=== PATIENT | female | born 1970 | race Caucasian/White ===

== ENCOUNTER → 2017-11-20 07:01 | Outpatient (CLI) | payer BC, SELFPAY ==
--- NOTE | 2017-11-20 07:08 | BI_ITS ---
MAMMOGRAPHY - BILATERAL SCREENING REASON FOR EXAM: Female, 47 years old. Routine annual screening examination. PERTINENT HISTORY: Aunt with breast cancer. TECHNIQUE: Digital bilateral breast bassam (3D mammographic acquisition) in the CC and MLO projections. 2-D mediolateral oblique (MLO) and craniocaudad (CC) views of both breasts were obtained. CAD: Full Field Digital Mammography with Computer Added Detection was performed. COMPARISON: Comparison is made with prior study dated October 18, 2016 and September 28, 2015. FINDINGS: Breast Composition: There are scattered areas of fibroglandular density. There are no dominant masses or suspicious calcifications. No other significant abnormalities are identified. There has been no significant change since the prior study. BI/SCREENING MAMM (CAD), BILAT IMPRESSION: Stable bilateral screening mammogram. Yearly follow-up mammogram recommended. (A) ASSESSMENT CATEGORY: BIRADS Category 1: Negative. A letter regarding these results will be sent to the patient by the facility within 30 days. Approximately 10% of breast cancers are not detected by mammography. A normal mammogram should not delay biopsy of a clinically suspicious abnormality. [id number] Electronically Signed: Jose Christensen MD at 8:49 EDT Tel [phone], Service support ,
== END ==
PROVIDERS: Family Provider Student in an Organized Health Care Education/Training Program; PCP Student in an Organized Health Care Education/Training Program; Visit Provider Student in an Organized Health Care Education/Training Program
DX: Z12.31 Encounter for screening mammogram for malignant neoplasm of breast (principal)
CPT/HCPCS: 77063; 77067

== ENCOUNTER → 2018-11-26 10:12 | Outpatient (CLI) | payer BC, SELFPAY ==
--- NOTE | 2018-11-26 10:15 | BI_ITS ---
MAMMOGRAPHY - BILATERAL SCREENING 3-D TOMOSYNTHESIS REASON FOR EXAM: Female, 48 years old. Bilateral Screening 3-D tomosynthesis PERTINENT HISTORY: Aunt with breast cancer.. TECHNIQUE: 2-D mammograms and 3-D Tomosynthesis of the breast (s) were performed. CAD was performed. COMPARISON: 11/20/2017 FINDINGS: The breast composition is heterogeneously dense that can obscure small breast masses. Scattered benign calcifications are seen. No dense spiculated masses or suspicious microcalcifications are identified. No architectural distortion is identified. There is no skin thickening or retraction. There has been no significant change since the prior study. BI/SCREEN MAMM (CAD) W/BRIAN BILAT IMPRESSION: No mammographic signs of malignancy. Routine yearly mammograms recommended. ASSESSMENT CATEGORY: BIRADS Category 2: Benign. A letter regarding these results will be sent to the patient by the facility within 30 days. FOLLOW UP RECOMMENDATION: Yearly follow up mammogram recommended. (A) Approximately 10% of breast cancers are not detected by mammography. A normal mammogram should not delay biopsy of a clinically suspicious abnormality. Electronically Signed: Jose Ramon Snyder MD at 11:48 EDT , Service support ,
== END ==
PROVIDERS: Family Provider Student in an Organized Health Care Education/Training Program; PCP Student in an Organized Health Care Education/Training Program; Referring Provider Nurse Practitioner Family; Visit Provider Nurse Practitioner Family
DX: Z12.31 Encounter for screening mammogram for malignant neoplasm of breast (principal)
CPT/HCPCS: 77063; 77067

== ENCOUNTER → 2019-11-28 10:35 | Outpatient (CLI) | payer BC, SELFPAY ==
--- NOTE | 2019-11-28 10:38 | BI_ITS ---
MAMMOGRAPHY - BILATERAL SCREENING 3-D TOMOSYNTHESIS REASON FOR EXAM: Female, 49 years old. Routine screening PERTINENT HISTORY: BILAT SCREENING - FAM HX OF MAT GREAT AUNT @ AGE 70''S - BILAT AXILLARY TAGS. TECHNIQUE: 2-D mammograms and 3-D Tomosynthesis of the breast (s) were performed. CAD was performed. COMPARISON: 11/26/2018 FINDINGS: The breast composition is composed of scattered fibroglandular density. Scattered benign calcifications are seen. No dense spiculated masses or suspicious microcalcifications are identified. No architectural distortion is identified. There is no skin thickening or retraction. There has been no significant change since the prior study. BI/SCREEN MAMM (CAD) W/BRIAN BILAT IMPRESSION: No mammographic signs of malignancy. Routine yearly mammograms recommended. ASSESSMENT CATEGORY: BIRADS Category 2: Benign. A letter regarding these results will be sent to the patient by the facility within 30 days. FOLLOW UP RECOMMENDATION: Yearly follow up mammogram recommended. (A) Approximately 10% of breast cancers are not detected by mammography. A normal mammogram should not delay biopsy of a clinically suspicious abnormality. Electronically Signed: Jose Ramon Snyder MD at 12:22 EDT , Service support ,
== END ==
PROVIDERS: PCP Student in an Organized Health Care Education/Training Program; Referring Provider Nurse Practitioner Family; Visit Provider Nurse Practitioner Family
DX: Z12.31 Encounter for screening mammogram for malignant neoplasm of breast (principal)
CPT/HCPCS: 77063; 77067

== ENCOUNTER → 2020-07-23 12:39 | Outpatient (CLI) | payer OTHER, SELFPAY ==
--- NOTE | 2020-07-23 12:41 | CT_ITS ---
STUDY: CT RIGHTLOWER EXTREMITY WITHOUT CONTRAST REASON FOR EXAM: Female, 50 years old. OSTEOARTHRITIS RIGHT KNEE RADIATION DOSAGE (If Supplied By Facility): CTDIvol = ( 20.60 ) mGy, DLP = ( 1894.26 ) mGycm TECHNIQUE: Thin section transaxial imaging of the ankle was obtained, with sagittal and coronal reconstructed images. Individualized dose optimization techniques were used for this CT. COMPARISON: Right knee x-ray dated December 23, 2012 Hip findings: Normal femoral head, neck, intertrochanteric region and visualized proximal femur. Normal acetabulum. Normal hip joint. Normal superior and inferior pubic rami. Normal pubic symphysis. Normal ischial tuberosity. Normal origin of the hamstring tendons. Normal visualized iliac wing, sacroiliac joint, and sacral ala. Normal visualized soft tissue structures of the pelvis. No fractures or osteonecrosis. Knee findings: Mild to moderate narrowing and cortical spurring of the medial compartment. Mild narrowing and cortical spurring of the lateral compartment. Mild narrowing of the patellofemoral compartment. Small joint effusion noted. Normal proximal tibiofibular articulation. No fracture is seen. No osteonecrosis. Subcortical cystic changes are present beneath the tibial spines The quadriceps tendon is grossly normal. The patellar tendon is grossly normal. Normal Hoffa''s fat pad. The soft tissues are unremarkable. Ankle findings: Large plantar calcaneal spur is present. Mild enthesopathy is present at the Achilles tendon insertion site. Small corticated ossicle on the medial side of the talar neck could be developmental or related to old trauma or degenerative changes. Moderate subcutaneous edema is present in the plantar aspect of the heel. No fractures are present. Normal visualized distal tibia and fibula. Normal tibiotalar articulation and talar dome. Normal talus, calcaneus, navicular and cuboid tarsal bones. Normal subtalar, talonavicular and calcaneocuboid articulations. Normal navicular-cuneiform, cuneiform tarsal bones and intercuneiform articulations. Normal tarsometatarsal articulations and visualized metatarsi. CT/Extremity Lower without Contra IMPRESSION: Degenerative changes of the knee and ankle Electronically Signed: Tim Miranda MD at 23:35 EDT , Service support ,
== END ==
PROVIDERS: PCP Student in an Organized Health Care Education/Training Program; Referring Provider Orthopaedic Surgery; Visit Provider Orthopaedic Surgery
DX: M17.11 Unilateral primary osteoarthritis, right knee (principal); M21.161 Varus deformity, not elsewhere classified, right knee
CPT/HCPCS: 73700

== ENCOUNTER 2020-08-09 05:26 | Day surgery (SDC) | payer OTHER, SELFPAY ==
--- NOTE | 2020-08-02 10:41 | EKG12_ITS ---
Test Reason : PREOP Blood Pressure : / mmHG Vent. Rate : 076 BPM Atrial Rate : 076 BPM P-R Int : 168 ms QRS Dur : 082 ms QT Int : 366 ms P-R-T Axes : 044 -20 042 degrees QTc Int : 411 ms Normal sinus rhythm Poor R wave progression Confirmed by NINO MENESES, MARSHAL ([id number]), manager editorial AMY LOPEZ ([id number]) on 08/03/2020 10:45:16 AM Referred By: Rome Willis Confirmed By:MARSHAL ONEILL MD
[2020-08-02 11:16] LABS: Absolute Lymphocyte Count 1.51 X10^3/uL (0.83-4.51); Absolute Neutrophil Count 5.2 X10^3/uL (2.0-7.7); Basophil# 0.06 X10^3/uL; Basophil% 0.8 % (0-1); Eosinophil# 0.13 X10^3/uL; Eosinophils% 1.7 % (0-5); Hematocrit 48.5 % (37-47); Hemoglobin 15.2 g/dL (12.0-15.0); Lymphocyte # 1.51 X10^3/ul (4.0); Lymphocyte % 20.3 % (19-41); Mean Corp Hgb Conc 31.3 g/dL (32-36); Mean Corpuscular Hgb 25.6 pg (27.0-32.0); Mean Corpuscular Volume 81.6 fL (81-99); Mean Platelet Vol. 10.5 fl (6.2-12.0); Monocyte# 0.48 X10^3/uL; Monocyte% 6.5 % (0-10); NRBC Flagged by Analyzer 0 % (0-5); Neutrophil # 5.24 X10^3/uL (2.7-7.7); Neutrophil % 70.4 % (47-70); Platelet Count 272 K/mm3 (150-450); RBC Distribution Width CV 13.5 % (11.6-14.6); RBC Distribution Width SD 40.1 fl (35.1-43.9); Red Blood Count 5.94 M/mm3 (4.2-5.4); White Blood Count 7.4 K/mm3 (4.4-11.0)
[2020-08-02 11:31] LABS: Magnesium 2.2 mg/dL (1.6-2.6)
[2020-08-02 11:37] LABS: Anion Gap 5 (5-15); BUN 9 mg/dL (7-18); BUN/Creat Ratio 13.4 RATIO (10-20); Calcium,Total 9.5 mg/dL (8.5-10.1); Chloride 108 mmol/L (98-107); Creatinine, Serum 0.67 mg/dL (0.55-1.02); EST Glomerular Filtration Rate 99 mL/min (>60); Est Glom Filt Rate - Afr Amer 120 mL/min (>60); Glucose 124 mg/dL (74-106); Potassium 4.4 mmol/L (3.5-5.1); Sodium Level 139 mmol/L (136-145)
[2020-08-09] VITALS (16 sets, daily range): BP systolic 108–150; BP diastolic 48–127; PULSE 76–87; RESP 16; TEMP 36.1–37; O2SAT 92–100; BMI 44.9
--- NOTE | 2020-08-09 | KNEE_PTH ---
PATIENT: NANCY ASH LOC: [facility] – [place] U#:[id number] AGE/SX: 50/F ROOM: RE08/09/[address]: Dr. Rome Willis DO : 1970 BED: DIS: 08/09/2020 SPEC #: [id number] RECD: 08/09/20 11:23 STATUS: LEIDY REQ #: [id number] BAILEE: 08/09/20 00:[address]: Rome Willis DEPT: SURGICAL PATHOLOGY RECD BY: Justen King ENTERED: 08/09/20 11:23 SP TYPE: TOTAL KNEE OTHR DR: Dr. Cam Tripp DO Tissues: Knee, NOS Procedures: Decalcification bone/plaque Surgery Specimen Level IV HEADER OPERATION: ERAS, total knee replacement robotic arm assist PRE-OP DIAGNOSIS: Severe end-stage tri-compartment osteoarthritis TISSUE SUBMITTED: Bone from right knee MICROSCOPIC DIAGNOSIS Bone and tissue of right knee, total knee resection: Severe degenerative joint disease. Mild synovial hyperplasia. AM:destini 08/12/2020 MICROSCOPIC DESCRIPTION Slides are reviewed. GROSS DESCRIPTION Received is one container designated bone from right knee. The specimen consists of multiple fragments of pham-yellow bone measuring in aggregate 10 x 10 x 3 cm. Also in the specimen container are multiple fragments of yellow-white soft tissue measuring in aggregate 8 x 7 x 3 cm. A number of bony fragments contain articular surfaces consistent with tibial plateau and femoral condyle and displaying prominent osteophyte formation and bone erosion. Nutrition Educator sections are submitted in two cassettes as follows: 1 - soft tissue, 2 - bone after decalcification. / SJ:destini 08/09/20 TC:5 CPT: 11324, 84124
[2020-08-09 06:13] LABS: Internal QC Validated? YES +Cl - CLEAR BKGD; Pregnancy, Urine Negative Negative
[2020-08-09] MEDS: Gabapentin 600 MG Tablet PO (06:21)
[2020-08-09] MEDS: Acetaminophen 500 MG Tablet 1000 MG PO (06:21)
[2020-08-09 06:26] LABS: Bedside Glucose 87 mg/dL (70-110)
[2020-08-09] MEDS: Lactated Ringers 1,000 ML 100 ML IV (07:34)
--- NOTE | 2020-08-09 09:03 | OP.PCM_ITS ---
Report of Operation Date of Procedure: 08/09/20 Pre-Operative Diagnosis: OA right knee Post-Operative Diagnosis: same Surgery/Procedure Performed:: Right TKR lead generation marketing manager: Esteban Garcia Type of Anesthesia:: Spinal Anesthesiologist: Horace Bella Specimen's removed: bone Estimated Blood Loss (mL): 20 cc - Admit VTE Documentation VTE Present on Admission: No VTE Mechan Device Prophylaxis: SCD's, Thigh High ANAND Hose VTE Pharm Prophylaxis ordered?: Yes
[2020-08-09] MEDS: Lactated Ringers 1,000 ML 999 ML IV (10:02)
--- NOTE | 2020-08-09 10:37 | RAD_ITS ---
STUDY: X-RAY - RIGHT KNEE REASON FOR EXAM: Postop right total knee arthroplasty. TECHNIQUE: 2 view(s) of the knee. COMPARISON: CT images 07/23/2020. FINDINGS: There is a right total knee arthroplasty without evidence of complication. There is postoperative gas in the knee joint and soft tissues. There are overlying skin brendan. RAD/Knee 1 or 2 Views IMPRESSION: Uncomplicated right total knee arthroplasty. Electronically Signed: Ramon Cazares MD at 11:10 EDT Tel , Service support ,
[2020-08-09 10:55] LABS: Anion Gap 5 (5-15); BUN 12 mg/dL (7-18); BUN/Creat Ratio 14.7 RATIO (10-20); Calcium,Total 8.9 mg/dL (8.5-10.1); Chloride 106 mmol/L (98-107); Creatinine, Serum 0.82 mg/dL (0.55-1.02); EST Glomerular Filtration Rate 79 mL/min (>60); Est Glom Filt Rate - Afr Amer 95 mL/min (>60); Estimated Creatinine Clearance 76.84 ml/min; Glucose 176 mg/dL (74-106); Potassium 3.9 mmol/L (3.5-5.1); Sodium Level 139 mmol/L (136-145)
[2020-08-09 11:28] LABS: Hematocrit 45.5 % (37-47); Hemoglobin 14.7 g/dL (12.0-15.0); Mean Corp Hgb Conc 32.3 g/dL (32-36); Mean Corpuscular Hgb 26.3 pg (27.0-32.0); Mean Corpuscular Volume 81.5 fL (81-99); Mean Platelet Vol. 10.7 fl (6.2-12.0); Platelet Count 281 K/mm3 (150-450); RBC Distribution Width CV 13.6 % (11.6-14.6); RBC Distribution Width SD 39.7 fl (35.1-43.9); Red Blood Count 5.58 M/mm3 (4.2-5.4); White Blood Count 11.6 K/mm3 (4.4-11.0)
[2020-08-09] MEDS: Lactated Ringers 1,000 ML 125 ML IV (12:28)
[2020-08-09] MEDS: Cefazolin 1 GM/50 ML BAG IV (13:32)
== END 2020-08-09 14:01 | disposition home or self-care (01) ==
LOC: SDC 05:27 → AC 05:28
PROVIDERS: Anesthesiology; PCP Student in an Organized Health Care Education/Training Program; Referring Provider Orthopaedic Surgery; Visit Provider Orthopaedic Surgery
PROC: 0SRC0JZ Replacement of Right Knee Joint with Synthetic Substitute, Open Approach (ICD-10-PCS; CPT 27447; principal; 2020-08-09 07:00)
DX: M17.11 Unilateral primary osteoarthritis, right knee (principal); J45.909 Unspecified asthma, uncomplicated
CPT/HCPCS: 27447; 36415; 73560; 80048; 81025; 82962; 83735; 85025; 85027; 87081; 87426; 88305; 88311; 93005; 97162; C1776; C9803; J7120; J2405

== ENCOUNTER 2020-08-26 13:39 | Outpatient (RCR) | payer OTHER, SELFPAY ==
[2020-08-09 06:01] VITALS: BMI 44.9
== END 2020-10-12 23:59 ==
LOC: IMMUN 13:39
PROVIDERS: PCP Student in an Organized Health Care Education/Training Program; Referring Provider Family Medicine; Visit Provider Family Medicine
DX: Z23 Encounter for immunization (principal)
CPT/HCPCS: 0001A; 0002A; 91300

== ENCOUNTER → 2020-12-01 13:48 | Outpatient (CLI) | payer OTHER, SELFPAY ==
[2020-08-09 06:01] VITALS: BMI 44.9
--- NOTE | 2020-12-01 13:50 | BI_ITS ---
MAMMOGRAPHY - BILATERAL SCREENING REASON FOR EXAM: Female, 50 years old. Routine annual screening examination. PERTINENT HISTORY: Aunt with breast cancer. TECHNIQUE: Digital bilateral breast brian (3D mammographic acquisition) in the CC and MLO projections. 2-D mediolateral oblique (MLO) and craniocaudad (CC) views of both breasts were obtained. CAD: Full Field Digital Mammography with Computer Added Detection was performed. COMPARISON: Comparison is made with prior study dated 11/28/2019 and 11/26/2018. FINDINGS: Breast Composition: There are scattered areas of fibroglandular density. There are no dominant masses or suspicious calcifications. No other significant abnormalities are identified. There has been no significant change since the prior study. BI/SCRN MAMM (CAD)W/BRIAN BILAT IMPRESSION: Stable bilateral screening mammogram. Yearly follow-up mammogram recommended. (A) ASSESSMENT CATEGORY: BIRADS Category 1: Negative. A letter regarding these results will be sent to the patient by the facility within 30 days. Approximately 10% of breast cancers are not detected by mammography. A normal mammogram should not delay biopsy of a clinically suspicious abnormality. [id number] Electronically Signed: Jose Christensen MD at 14:44 EDT , Service support ,
== END ==
PROVIDERS: PCP Student in an Organized Health Care Education/Training Program; Referring Provider Student in an Organized Health Care Education/Training Program; Visit Provider Student in an Organized Health Care Education/Training Program
DX: Z12.31 Encounter for screening mammogram for malignant neoplasm of breast (principal)
CPT/HCPCS: 77063; 77067

== ENCOUNTER 2021-07-19 14:18 | Outpatient (CLI) | payer BC, SELFPAY ==
--- NOTE | 2021-07-19 14:23 | BI_ITS ---
MAMMOGRAPHY - UNILATERAL DIAGNOSTIC: RIGHT BREAST REASON FOR EXAM: Female, 51 years old. DISORDERS OF THE SKIN PERTINENT HISTORY: Non-contributory. TECHNIQUE: Digital examination. Mediolateral oblique (MLO) and craniocaudad (CC) views of the breast were obtained. CAD: CAD was performed on this study. COMPARISON: 12/01/2020 FINDINGS: Breast Composition: There are scattered areas of fibroglandular density. There are no dominant masses or suspicious calcifications. No other significant abnormalities are identified. BI/DIAG MAMM W/CAD, UNILAT IMPRESSION: Stable unilateral diagnostic mammogram. ASSESSMENT CATEGORY: BIRADS Category 1: Negative. A letter regarding these results will be sent to the patient by the facility within 30 days. FOLLOW-UP RECOMMENDATION: Yearly follow-up mammogram recommended. (A) Approximately 10% of breast cancers are not detected by mammography. A normal mammogram should not delay biopsy of a clinically suspicious abnormality. Electronically Signed: Farzad Smith MD at 15:23 EDT ,
== END 2021-07-19 23:59 | disposition home or self-care (01) ==
PROVIDERS: PCP Student in an Organized Health Care Education/Training Program; Visit Provider Nurse Practitioner Family
DX: R92.2 Inconclusive mammogram (principal); N98.8 Other complications associated with artificial fertilization
CPT/HCPCS: 77061; 77065; G0279

== ENCOUNTER → 2021-12-06 | Outpatient (CLI) | payer BC, SELFPAY ==
--- NOTE | 2021-12-06 15:46 | BI_ITS ---
MAMMOGRAPHY - BILATERAL SCREENING 3-D TOMOSYNTHESIS REASON FOR EXAM: Female, 51 years old. Routine screening PERTINENT HISTORY: No significant family history. TECHNIQUE: 2-D mammograms and 3-D Tomosynthesis of the breast (s) were performed. CAD was performed. COMPARISON: 11/28/2019 FINDINGS: The breast composition is composed of scattered fibroglandular density. Scattered benign calcifications are seen. No dense spiculated masses or suspicious microcalcifications are identified. No architectural distortion is identified. There is no skin thickening or retraction. There has been no significant change since the prior study. BI/SCRN MAMM (CAD)W/BRIAN BILAT IMPRESSION: No mammographic signs of malignancy. Routine yearly mammograms recommended. ASSESSMENT CATEGORY: BIRADS Category 1: Negative. A letter regarding these results will be sent to the patient by the facility within 30 days. FOLLOW UP RECOMMENDATION: Yearly follow up mammogram recommended. (A) Approximately 10% of breast cancers are not detected by mammography. A normal mammogram should not delay biopsy of a clinically suspicious abnormality. Electronically Signed: Jose Ramon Snyder MD at 11:54 EDT ,
== END | disposition home or self-care (01) ==
LOC: OPBI 15:45
PROVIDERS: PCP Student in an Organized Health Care Education/Training Program; Referring Provider Student in an Organized Health Care Education/Training Program; Visit Provider Student in an Organized Health Care Education/Training Program
DX: Z12.31 Encounter for screening mammogram for malignant neoplasm of breast (principal)
CPT/HCPCS: 77063; 77067

== ENCOUNTER → 2022-12-12 | Outpatient (CLI) | payer BC, SELFPAY ==
--- NOTE | 2022-12-12 09:49 | BI_ITS ---
MAMMOGRAPHY - BILATERAL SCREENING REASON FOR EXAM: Female, 52 years old. Routine annual screening examination. PERTINENT HISTORY: Non-contributory. TECHNIQUE: Digital bilateral breast brian (3D mammographic acquisition) in the CC and MLO projections. 2-D mediolateral oblique (MLO) and craniocaudad (CC) views of both breasts were obtained. CAD: Full Field Digital Mammography with Computer Added Detection was performed. COMPARISON: Comparison is made with prior study December 06, 2021 and July 19, 2021. FINDINGS: Breast Composition: There are scattered areas of fibroglandular density. There are no dominant masses or suspicious calcifications. No other significant abnormalities are identified. There has been no significant change since the prior study. BI/SCRN MAMM (CAD)W/BRIAN BILAT IMPRESSION: Stable bilateral screening mammogram. Yearly follow-up mammogram recommended. (A) ASSESSMENT CATEGORY: BIRADS Category 1: Negative. A letter regarding these results will be sent to the patient by the facility within 30 days. Approximately 10% of breast cancers are not detected by mammography. A normal mammogram should not delay biopsy of a clinically suspicious abnormality. [id number] Electronically Signed: Jose Christensen MD at 12:32 EDT ,
--- NOTE | 2022-12-12 09:55 | BD_ITS ---
STUDY: DUAL ENERGY X-RAY ABSORPTIOMETRY / DXA REASON FOR EXAM: Female, 52 years old. Z13.820 TECHNIQUE: Bone Mineral Density (BMD) measurements of lumbar spine and bilateral hips were obtained. COMPARISON: None. FINDINGS: Lumbar Spine (L1-L4): g/cm2 (1.195) / T-score (1.3) / Z-score (2.2) Findings are suggestive of normal bone density with a low fracture risk. Left Femur Total: g/cm2 (1.251) / T-score (2.5) / Z-score (3.1) Left Femoral Neck: g/cm2 (0.996) / T-score (1.3) / Z-score (2.2) Right Femur Total: g/cm2 (1.201) / T-score (2.1) / Z-score (2.7) Right Femoral Neck: g/cm2 (1.006) / T-score (1.4) / Z-score (2.3) BD/Dexa Bone Density Study IMPRESSION: The patient is considered normal as outlined below according to World Nigel Organization (WHO) criteria with a low fracture risk. Reference Information: The T-score is the number of standard deviations above or below the standard which is normal for young adults at their peak bone mineral density. The World Health Organization (WHO) interprets the T-scores as follows: Above -1 Normal bone density Between -1 and -2.5 Osteopenia Equal to / or below -2.5 Osteoporosis As a practical clinical guideline, osteopenia may be graded as follows: Mild -1 through -1.5 Moderate -1.6 through -2.0 Severe -2.1 through -2.4 The Z-score is the number of standard deviations above or below age-matched controls. A Z-score of less than -1.5 would be considered abnormal. References: 1. NIH Osteoporosis and Related Bone Diseases www osteo.org 2. International Society for Clinical Densitometry www iscd.org 3. National Osteoporosis Foundation www nof.org Electronically Signed: Jose Christensen MD at 9:46 EDT ,
== END | disposition home or self-care (01) ==
LOC: OPBD 09:47
PROVIDERS: PCP Student in an Organized Health Care Education/Training Program; Referring Provider Student in an Organized Health Care Education/Training Program; Visit Provider Student in an Organized Health Care Education/Training Program
DX: Z13.820 Encounter for screening for osteoporosis (principal); Z12.31 Encounter for screening mammogram for malignant neoplasm of breast
CPT/HCPCS: 77063; 77067; 77080

== ENCOUNTER 2023-08-16 10:03 | Day surgery (SDC) | payer BC, SELFPAY ==
--- NOTE | 2023-08-01 11:46 | PCM.HP.BLA ---
History and Physical Date of Admission: 08/16/23 HPI: The patient is a 53 year old female presenting for pre-operative visit. She is scheduled for hysteroscopy D&C with possible polyp resection and possible IUD insertion, for thickened endometrium, postmenopausal bleeding on 08/16/23. Procedure discussed along with risks, benefits and complications. Other alternatives discussed for management. Consent form signed? Yes. ? ? PAST MEDICAL HISTORY PAST MEDICAL HISTORY Diagnosis Date ? Allergic rhinitis ? ? Arthritis ? ? Asthma ? ? GERD (gastroesophageal reflux disease) ? ? OA (osteoarthritis) of knee ? ? Dr. Willis orthopedics ? Vitamin D deficiency ? ? ? PAST SURGICAL HISTORY PAST SURGICAL HISTORY Procedure Laterality Date ? APPENDECTOMY ? 05/07/1979 ? APPENDECTOMY HX ? ? ? BACK SURGERY HX ? ? ? CARPAL TUNNEL ? 05/07/2010 ? bilateral wrist ? COLONOSCOPY FLX DX W/COLLJ SPEC WHEN PFRMD ? 12/27/2020 ? EXCIS LESION, MENISCUS OR CAPSULE, KNEE ? 05/28/13,08/2014 ? Dr. Willis Orth[facility], right knee medial meniscus repair ? JOINT REPLACEMENT HX Right 08/09/2020 ? LOW BACK DISK SURGERY ? 05/07/2001 ? L4-herniated disc ? OSTECTOMY CALCANEUS SPUR W/WO PLNTAR FASCIAL RLS ? ? ? left foot ? TOTAL KNEE REPLACEMENT Right 08/09/2020 ? Dr. Willis ? ? ? CURRENT MEDICATIONS Current Outpatient Medications Medication Sig Dispense Refill ? fluticasone (FLOVENT) 110 mcg/actuation inhaler Inhale 1 Puff as instructed two times a day. 1 Each 11 ? meloxicam (MOBIC) 15 mg tablet Take 1 tablet by mouth every afternoon. ? ? ? loratadine/pseudoephedrine (ALLERGY RELIEF-D, LORATADINE, ORAL) Take by mouth once daily. ? ? ? omeprazole (PRILOSEC) 20 mg capsule Take 1 capsule by mouth once daily. 30 capsule 11 ? qvgevfo-bdhbrcaca-esbhyi 180 167-65-200 mg tab Take by mouth once daily. ? ? ? cyanocobalamin, vitamin B-12, (VITAMIN B-12 ORAL) Take by mouth once daily. ? ? ? FLUTICASONE PROPIONATE (FLONASE NASAL) Use in the nose once daily. Two in each nostril daily ? ? ? Cholecalciferol, Vitamin D3, 25 mcg (1,000 unit) cap Take 1,000 Units by mouth twice daily. Takes 2,000 units daily ? ? ? multivitamins(DAILY MULTIPLE TAB) Take one(1) tablet daily. ? 0 ? No current facility-administered medications for this visit. ? ? ALLERGIES: Voltaren [Diclofenac Sodium] ? PERSONAL HISTORY: SOCIAL HISTORY Social History ? Tobacco Use ? Smoking status: Never ? Smokeless tobacco: Former ? ? Types: Snuff ? Tobacco comments: ? ? chew tobacco Vaping Use ? Vaping Use: Never used Substance Use Topics ? Alcohol use: No ? Drug use: No ? FAMILY HISTORY: FAMILY HISTORY FAMILY HISTORY Problem Relation Age of Onset ? Asthma Mother ? ? Asthma Father ? ? Dementia Father ? ? other (heart disease) Father 64 ? Breast Cancer Maternal Grandmother ? ? Diabetes Paternal Grandmother ? ? ? REVIEW OF SYMPTOMS: GENERAL: denies fevers or chills ENDOCRINOLOGY: has not been on steroids Cardiology : denies palpitations or chest pain Respiratory: denies SOB or cough Hematology: denies history of prolonged bleeding or easy bruising or VTE Allergy: Denies history of personal or family history of allergy to anesthesia ? PHYSICAL EXAMINATION: ? VITALS: Blood pressure 138/92, pulse 75, resp. rate 14, height 5' 6 (1.676 m), weight 290 lb (131.5 kg), last menstrual period 06/09/2023, SpO2 95%. ? GENERAL: The patient is well nourished, well hydrated in no acute distress. , The patient is oriented to time, place, and person. NECK: Supple. No lynphadenopathy, normal thyroid, no thyromegaly. LUNGS: Clear to auscultation bilaterally. no wheezes, rhonchi or rales ? IMPRESSION: PMB, Thickened endometrium ? PLAN: The risks/benefits/alternatives and personal involved for the planned hysteroscopy D&c with possible polyp resection and levonorgestrel IUD insertion were reviewed with the patient. Her questions were answered to her satisfaction and she desires to proceed. Consent was signed. I reviewed with her postop instructions and expectations. ? ? I have reviewed and updated past medical and surgical history, medications and allergies Assessment & Plan Assessment/Plan (1) PMB (postmenopausal bleeding): (2) Endometrial polyp:
[2023-08-16 10:40] VITALS: BP 134/69; PULSE 59; RESP 16; TEMP 36.4; O2SAT 96; BMI 46.7
[2023-08-16] MEDS: Lactated Ringers 1,000 ML 15 ML IV (10:44)
[2023-08-16] MEDS: Ketorolac 30 MG/ML Syringe IV (10:46)
[2023-08-16] MEDS: Acetaminophen 500 MG Tablet 1000 MG PO (10:47)
[2023-08-16 11:14] LABS: Internal QC Validated? YES +Cl - CLEAR BKGD; Pregnancy, Serum, hCG Quali. NEGATIVE Negative
--- NOTE | 2023-08-16 12:00 | EMB_PTH ---
PATIENT: NANCY ASH LOC: [facility] – [place] U#:[id number] AGE/SX: 53/F ROOM: RE08/16/[address]: Dr. Magui Scott MD : 1970 BED: DIS: 08/16/2023 SPEC #: [id number] RECD: 08/16/23 15:59 STATUS: LEIDY REJair #: [id number] BAILEE: 08/16/23 12:[address]: Magui Scott DEPT: SURGICAL PATHOLOGY RECD BY: Becky Rueda ENTERED: 08/17/23 10:13 SP TYPE: ENDOM BX/C OTHR DR: Dr. Cam Tripp, DO Tissues: Endometrium, NOS Procedures: Surgery Specimen Level IV HEADER OPERATION: Hysteroscopy, D&C, polypectomy with Symphion, IUD insertion PRE-OP DIAGNOSIS: Abnormal uterine bleeding, Endometrial polyp TISSUE SUBMITTED: Endometrial Curettings and polyp MICROSCOPIC DIAGNOSIS Endometrial Curettings and polyp: Polypoid fragments of disordered proliferative endometrium. Fragments of benign myometrial tissue. CHRISTEN/mr 08/20/2023 COMMENT Case has been reviewed in consultation with Dr. Ramos who concurs with the above diagnosis. IDC:SJ MICROSCOPIC DESCRIPTION Slides are reviewed. GROSS DESCRIPTION Received in fixative is one container labeled with the patient's name and designated Endometrial Curetting and polyp. The specimen consists of multiple irregular fragments of pham indurated tissue that in aggregate measure 7.5 x 3.0 x 0.3 cm. The specimen is totally submitted in one cassette. ANKIT/ 08/17/23 TC:5 CPT: 40235
--- NOTE | 2023-08-16 15:03 | PCM.DC ---
Discharge Instructions Diet Discharge Diet: No restrictions Activity May resume sexual activity in: 2 weeks Lifting Restrictions: none Dressing / Incision Call your doctor if your incision/area has: Sudden Increased Bleeding and Foul Smelling Discharge Call your doctor if you observe: Fever of 101 or Higher and Using more than 1 pad per hour (for 2 hrs in a row) Follow Up Care Please Follow Up With: Magui Scott MD When: We will contact you next week with your pathology. Schedule a follow up in 3 months. Call [phone] or send a [employer] message to make an appointment or with any concerns. Test Results: Test results from this visit will be discussed in further detail at your follow-up appointment, if applicable. Discharge Plan Admission Primary Reason for Your Visit: Hysteroscopy dilation and curettage and Liletta IUD insertion Attending Provider: Magui Scott Primary Care Provider: Cam Tripp Discharge Orders/Prescriptions Prescriptions: No Action calcium carbonate 600 MG tablet 600 mg PO DAILY cyanocobalamin (vitamin B-12) 500 MCG tablet 1,000 mcg PO DAILY@0800 fluticasone propionate 1 SPRAY spray,suspension 2 spray NASAL DAILY fluticasone propionate 1 INHALER inhaler 1 puff INHALATION BID omeprazole 20 MG tablet,delayed release (DR/EC) 20 mg PO DAILY cholecalciferol (vitamin D3) 2,000 UNIT capsule 2,000 unit PO DAILY loratadine 10 MG capsule 10 mg PO DAILY qbacmxvf-ide-kvis-FA-vit K-lut 1 EACH tablet 1 each PO DAILY meloxicam 15 mg tablet 15 mg PO DAILY Referrals / Follow Up: Cam Tripp DO [Primary Care Provider] - Disposition Disposition (needs filled in before D/C Order can be placed): Home, Self Care
--- NOTE | 2023-08-16 15:04 | OP.PCM_ITS ---
Problems Associated Problem List Diagnoses (1) Endometrial polyp: (2) PMB (postmenopausal bleeding): Report of Operation Date of Procedure: 08/16/23 Pre-Operative Diagnosis: PMB, endometrial polyp Post-Operative Diagnosis: same Surgery/Procedure Performed:: Hysteroscopy D&C with polyp resection and Liletta IUD insertion Description of Surgical Findings:: thickened endometrium w/ large endometrial polyp, normal cervix and vagina Surgeon: Magui Scott coordinator of evaluation: None Type of Anesthesia: MAC/Supplemental/Local Anesthesiologist: [facility] Special Medications: none Specimen's removed: endometrial curettings Drains: none Estimated Blood Loss (mL): 10 Fluids Replaced: 500 Description of Procedure: The patient was taken to the OR where she was prepped and draped in dorsal lithotomy position. The weighted speculum was placed in the vagina and the anterior lip of the cervix was grasped with a single-tooth tenaculum. A paracervical block was administered with 1% lidocaine with 1-100,000 epinephrine solution. The cervix was dilated serially with Hegar dilators. The Symphion hysteroscope was placed into the uterine cavity and the above findings were noted. Bilateral tubal ostia were identified. The symphion resection device was readied and inserted. The polyp was removed in its entirety without difficulty and a visual D&C was done of the entire endometrial cavity. The instruments were removed from the vagina. The Liletta IUD was inserted in the usual sterile fashion and the strings trimmed to 2.5 cm. The specimen was handed off and sent to pathology. All sponge and needle counts were correct. Vaginal sweep was performed by me. The patient was awakened and taken to the recovery room in stable condition. Calculated hysteroscopic fluid deficit was 450 cc of normal saline Grafts/Implants Used: Liletta IUD Procedure Start Time: 15:09 Procedure Stop Time: 15:25 Complications none Admit VTE Documentation VTE Present on Admission: No VTE Mechan Device Prophylaxis: SCD's VTE Pharm Prophylaxis ordered?: No Reason prophylaxis not ordered:: Procedure Not Indicated
[2023-08-16] MEDS: Lidocaine 1% /Epi 1:100 (20ml) 20 ML Vial (15:09)
[2023-08-16] MEDS: Levonorgestrel IUD (Liletta) 1 EACH INTRA-UTER (15:21)
[2023-08-16 15:35] VITALS: BP 125/65; BP 134/69; PULSE 66; RESP 14; TEMP 36.4; O2SAT 94
[2023-08-16 15:40] VITALS: BP 130/68; BP 134/69; PULSE 66; RESP 16; O2SAT 95
[2023-08-16 15:45] VITALS: BP 129/69; BP 134/69; PULSE 64; RESP 16; O2SAT 95
[2023-08-16 15:48] VITALS: BP 127/64; BP 134/69; PULSE 59; RESP 16; TEMP 36.2; O2SAT 95
[2023-08-16 16:16] VITALS: BP 134/69
== END 2023-08-16 16:18 | disposition home or self-care (01) ==
LOC: SDC 10:05 → AC 10:06
PROVIDERS: Anesthesiology; PCP Student in an Organized Health Care Education/Training Program; Referring Provider Obstetrics & Gynecology; Visit Provider Obstetrics & Gynecology
PROC: 0UB98ZZ Excision of Uterus, Via Natural or Artificial Opening Endoscopic (ICD-10-PCS; CPT 58558; principal; 2023-08-16 11:45)
DX: N95.0 Postmenopausal bleeding (principal); Z87.891 Personal history of nicotine dependence; N84.0 Polyp of corpus uteri; Z96.651 Presence of right artificial knee joint; Z90.49 Acquired absence of other specified parts of digestive tract; J45.909 Unspecified asthma, uncomplicated; K21.9 Gastro-esophageal reflux disease without esophagitis
CPT/HCPCS: 58300; 58558; 00952; 84703; 88305; J7120; J2405

== ENCOUNTER → 2023-12-14 | Outpatient (CLI) | payer BC, SELFPAY ==
--- NOTE | 2023-12-14 14:45 | BI_ITS ---
MAMMOGRAPHY - BILATERAL SCREENING 3-D TOMOSYNTHESIS REASON FOR EXAM: Female, 53 years old. SCREENING PERTINENT HISTORY: No significant family history. TECHNIQUE: 2-D mammograms and 3-D Tomosynthesis of the breast (s) were performed. CAD was performed. COMPARISON: 12/12/2022 FINDINGS: The breast composition is composed of scattered fibroglandular density. Scattered benign calcifications are seen. No dense spiculated masses or suspicious microcalcifications are identified. No architectural distortion is identified. There is no skin thickening or retraction. There has been no significant change since the prior study. BI/SCRN MAMM (CAD)W/BRIAN BILAT IMPRESSION: No mammographic signs of malignancy. Routine yearly mammograms recommended. ASSESSMENT CATEGORY: BIRADS Category 1: Negative. A letter regarding these results will be sent to the patient by the facility within 30 days. FOLLOW UP RECOMMENDATION: Yearly follow up mammogram recommended. (A) Approximately 10% of breast cancers are not detected by mammography. A normal mammogram should not delay biopsy of a clinically suspicious abnormality. Electronically Signed: Farzad Smith MD at 20:42 EDT ,
== END | disposition home or self-care (01) ==
LOC: OPBI 14:43
PROVIDERS: PCP Student in an Organized Health Care Education/Training Program
DX: Z12.31 Encounter for screening mammogram for malignant neoplasm of breast (principal)
CPT/HCPCS: 77063; 77067

== ENCOUNTER → 2024-12-16 | Outpatient (CLI) | payer BC, SELFPAY ==
--- NOTE | 2024-12-16 07:03 | BI_ITS ---
EXAM: SCRN MAMM (CAD)W/BRIAN BILAT DATE: 12/16/2024 CLINICAL HISTORY: F, Age 54 y/o , SCREENING TECHNIQUE: SCRN MAMM (CAD)W/BRIAN BILAT COMPARISON: Prior exam(s) dated 12/14/2023, 12/12/2022, 12/06/2021. FINDINGS: TISSUE DENSITY: There are scattered areas of fibroglandular density. Bilateral Breast Mammographic Findings: No significant masses, calcifications or other abnormalities are identified. BI/SCRN MAMM (CAD)W/BRIAN BILAT IMPRESSION: There is no mammographic evidence of malignancy. OVERALL FINAL ASSESSMENT BI-RADS 1: NEGATIVE. RECOMMENDATION: Routine annual follow-up in 1 Year A letter with findings and recommendations will be mailed to the patient. Reading Location: [id number]
--- OUTSIDE RECORDS SUMMARY | 2024-12-16 07:03 | XMS RPT_ITS | CCD ---
Author Organization [facility] Care Team Providers Care Nursing Educator Name Role Phone Cam Tripp DO Primary Care Provider Cam Tripp DO Primary Care Provider Bailey SILVER BUFFER.RN NEUROSURGICALYakelin Unavailable Yumiko SILVER BUFFER.RN NEUROSURGICALAriadne Unavailable Heidi SILVER BUFFER.RN NEUROSURGICALMarilia Unavailable MARLEEN TREJO Referring Unavailable TRIPP, CAM L Primary Care Unavailable TRIPP CAM L Primary Care Unavailable ANAHY ALFRED Referring Unavailable TRIPP, CAM Richie Primary Care Unavailable ARMANI BHATT Referring Unavailable TRIPP, CAM Richie Primary Care Unavailable TRIPP, CAM L Attending Unavailable TRIPP, CAM L Primary Care Unavailable TRIPP, CAM L Primary Care Unavailable JONATHAN DUARTE Attending Unavailable JONATHAN DUARTE Referring Unavailable TRIPP, CAM Richie Primary Care Unavailable MARLEEN TREJO Attending Unavailable TRIPP, CAM Richie Primary Care Unavailable Tripp, Cam Referring Unavailable Tripp, Cam Attending Unavailable Tripp, Cam Primary Care Unavailable Allergies Allergy Classification Reported Allergen(s) Allergy Type Date of Onset Reaction(s) Facility (4 sources) Diclofenac Drug Allergy 1 [facility] (20 sources) Diclofenac; Translations: [DICLOFENAC SODIUM] Drug Allergy 6 [facility] Work Phone: (14 sources) bandaids [Other] Propensity to adverse reactions 0 [facility] Work Phone: (1 source) Diclofenac Drug Allergy 4 [facility] Repository Medications Current Medications Medication Drug Class(es) Dates Sig (Normalized) Sig (Original) amoxicillin 875 mg / clavulanate 125 mg oral tablet (1 source) Penicillin-class Antibacterial Start: 05-20-2023 End: 05-27-2023 take 1 tablet by mouth twice daily amoxicillin-clavulan ate potassium (AUGMENTIN) 875-125 mg per tablet Indications: Rhinosinusitis Take 1 tablet by mouth two times a day for 7 days. 14 tablet 0 05/20/2023 05/27/2023 Active Comment on above: Take 1 tablet by [facility] two times a day for 7 days. calcium carbonate 1500 mg oral tablet (4 sources) Start: 07-26-2020 take 600 mg by mouth once daily Calcium Carbonate Active 600 MG PO DAILY July 26, 2020 12:00am calcium-magnesium -herbal 180 167-65-200 mg tab (20 sources) calcium-magnesiu m-he rbal 180 167-65-200 mg tab Take by mouth once daily. Active calcium-magnesiu m-herbal 180 167-65-200 mg tab Take by mouth once daily. 0 Active calcium-magnesiu m-herbal 180 167-65-200 mg tab Take by mouth. 0 Active Comment on above: Take by mouth. Take by mouth once d aily. cholecalciferol 0.05 mg oral capsule (20 sources) Vitamin D Start: take 2000 [IU] by mouth once daily Cholecalciferol (Vitamin D3) Active 2000 UNIT PO DAILY July 26, 2020 12:00am take 1 capsule by [facility] twice daily, then take 2 capsules by mouth once daily Cholecalciferol, Vitamin D3, 25 mcg (1,0 00 unit) cap Take 1,000 Units by mouth twice daily. Takes 2,000 units daily Active Comment on above: Take 1,000 Units by mouth twice daily. Take 1,000 Units by mouth twice daily. Takes 2,000 units daily cyanocobalamin, vitamin B-12, (VITAMIN B-12 ORAL) (20 sources) cyanocobalamin, vitamin B-12, (VITAMIN B-12 ORAL) Take by mouth once daily. Active cyanocobalamin, vitamin B-12, (VITAMIN B-12 ORAL) Take by mouth once daily. 0 Active cyanocobalamin, vitamin B-12, (VITAMIN B-12 ORAL) Take by mouth. 0 Active Comment on above: Take by mouth. Take by mouth once d aily. doxycycline monohydrate 100 mg oral tablet (2 sources) Tetracycline-cla ss Drug Start: 09-22-2024 End: 09-29-2024 take 1 tablet by mouth twice daily doxycycline monohydrate 100 mg tablet Indications: Sinobronchitis Take 1 tablet by mouth two times a day for 7 days. 14 tablet 09/22/2024 09/29/2024 Active Start: 11-15-2023 End: 11-22-2023 take 1 tablet by mouth twice daily doxycycline monohydrate 100 mg tablet Take 1 tablet by mouth two times a day for 7 days. 14 tablet 0 11/15/2023 11/22/2023 Active 14 actuat fluticasone furoate 0.1 mg/actuat dry powder inhaler (20 sources) Corticosteroid Start: 09-27-2024 take 1 puff(s) by inhalation once daily, then take 1 puff(s) by inhalation once daily fluticasone furoate (ARNUITY ELLIPTA) 100 mcg/actuation inhaler Inhale 1 puff as instructed once daily. Inhale one puff once daily. DO NOT CLICK OPEN UNTIL READY FOR DOSE 1 each 5 09/27/2024 Active Start: 09-19-2023 End: 03-19-2024 take 1 puff(s) by inhalation once daily, then take 1 puff(s) by inhalation once daily fluticasone furoate (ARNUITY ELLIPTA) 100 mcg/actuation inhaler Inhale 1 Puff as instructed once daily. Inhale one puff once daily. DO NOT CLICK OPEN UNTIL READY FOR DOSE 1 Each 5 03/19/2024 Active Start: 10-15-2020 End: 09-19-2023 take 1 puff(s) by inhalation twice daily fluticasone (FLOVENT) 110 mcg/actuation inhaler Indications: Asthma, moderate persistent, well-controlled Inhale 1 Puff as instructed two times a day. 1 Each 04/10/2023 09/19/2023 Discontinued (Not on Formulary) Start: 07-26-2020 Fluticasone Pr opionate Active 2 SPRAY NASAL DAILY July 26, 2020 12:00am Start: 07-26-2020 take 1 puff(s) by in halation twice daily Fluticasone Propionate Active 1 PUFF INHALATION TWICE A DAY July 26, 2020 12:00am Start: 07-26-2020 take 1 puff(s) by in halation twice daily Fluticasone Propionate Active 1 PUFF INHALATION TWICE A DAY July 26, 2020 12:00am FLUTICASONE PROP IONATE (FLONASE NASAL) Use in the nose once daily. Two in each nostril daily Active FLUTICASONE PROP IONATE (FLONASE NASAL) Use in the nose once daily. Two in each nostril daily 0 Active FLUTICASONE PROP IONATE (FLONASE NASAL) Use in the nose. 0 Active Comment on above: Use in the nose. Inhale 1 Puff as ins tructed twice daily. Use in the nose once daily. Two in each nostril daily Inhale 1 Puff as ins tructed two times a day. Oqwggoxy-Thuv-Gxz9-C-M ang-Bosw (4 sources) Start: 07-26-2020 Btpmupqs-Yunv-Bvj3-C- Huseyin-Bosw Active 1 EACH PO DAILY July 26, 2020 11:17am Start: 07-26-2020 End: 08-08-2023 Skvusjuu-Sodf-Xlz3-C-Huseyin-Cesar sw Discontinued 1 EACH PO DAILY July 26, 2020 12:00am August 08, 2023 2:12pm Start: 07-26-2020 Glucosam-Sean- Jix5-J-Wqgc-Bosw Active 1 EACH PO DAILY July 26, 2020 12:00am levonorgestrel 0.080101 mg/hr intrauterine system (18 sources) Progestin, Progestin-containing Intrauterine Device Start: 08-17-2023 levonorgestrel (LILETTA) 20.4 mcg/24 hrs (8 yrs) 52 mg IUD 1 Each by INTRAUTERINE route as directed. 1 Each 08/17/2023 Active Comment on above: 1 Each by INTRAUTERI NE route as directed. loratadine 10 mg oral capsule (4 sources) Start: 07-26-2020 take 10 mg by mouth once daily Loratadine Active 10 MG PO DAILY July 26, 2020 12:00am Loratadine / Pseudoephedrine (20 sources) alpha-Adrenergic Agonist loratad ine/pseudoe phedrine (ALLERGY RELIEF-D, LORATADINE, ORAL) Take by mouth once daily. Active loratadine/pseud oephedrine (ALLERGY RELIEF-D, LORATADINE, ORAL) Take by mouth once daily. 0 Active Comment on above: Take by mouth once d aily. meloxicam 15 mg oral tablet (20 sources) Nonsteroidal Anti-inflammatory Drug Start: 01-24-2023 End: 07-08-2024 take 1 tablet by mouth once meloxicam (MOBIC) 15 mg tablet Take 1 tablet by mouth every afternoon. 90 tablet 1 07/08/2024 Active Start: 2021 End: 02-06-2022 take 1 tablet by mouth once daily for arthritis meloxicam (MOBIC) 15 mg tablet Take 1 tablet by mouth once daily. For arthritis, Take with food. 30 tablet 5 08/09/2021 02/06/2022 Discontinued Comment on above: Take 1 tablet by allison th once daily. For arthritis, Take with food. Take 1 tablet by allison th once daily. Take with food. Take 1 tablet by allison th every afternoon. methocarbamol 500 mg oral tablet (1 source) Muscle Relaxant Start: 4 End: 4 take 1 tablet by mouth every six hours as needed methocarbamol (ROBAXIN) 500 mg tablet Take 1 tablet by mouth every 6 hours as needed (Pain) for up to 3 days. 12 tablet 01/29/2024 02/01/2024 Active Uarpvomb-Tav-Dfjf-Fa-L utein (2 sources) Start: Iyuskmfk-Jwj-Rivh-Fa- Lutein Active 1 EACH PO DAILY July 26, 2020 11:17am Start: 07-26-2020 Tbtghjac-Ptw-O mfx-Pq-Qhufng Active 1 EACH PO DAILY July 26, 2020 12:00am Rrurhjsm-Xzc-Uxjl-Fa-Vit K-Lut (2 sources) Start: 07-26-2020 Pacwawuy-Oxa-Uhje-Fa-Vit K-Lut Active 1 EACH PO DAILY July 26, 2020 12:00am multivitamins(DAILY MULTIPLE TAB) (20 sources) Start: 06-12-2007 multivitamins(DAILY MULTIPLE TAB) Take one(1) tablet daily. 0 06/12/2007 Active Comment on above: Take one(1) tablet d aily. omeprazole 20 mg delayed release oral capsule (20 sources) Proton Pump Inhibitor Start: 01-04-2022 End: 01-14-2024 take 1 capsule by mouth once daily omeprazole (PRILOSEC) 20 mg capsule Take 1 capsule by mouth once daily. 30 capsule 01/14/2024 Active Start: 12-31-2020 take 1 capsule by mo uth once daily omeprazole (PRILOSEC) 20 mg capsule Take 1 capsule by mouth once daily. 30 capsule 12/31/2020 Active Start: 07-26-2020 take 20 mg by mouth once daily Omeprazole Active 20 MG PO DAILY July 26, 2020 12:00am Comment on above: Take 1 capsule by mo ut once daily. predniSONE 20 mg oral tablet (2 sources) Start: End: take 2 tablets by mouth once daily at mealtime predniSONE (DELTASONE) 20 mg tablet Indications: Sinobronchitis Take 2 tablets by mouth once daily for 5 days. Take daily with food. 10 tablet 09/22/2024 09/27/2024 Active Start: 01-29-2024 End: 02-02-2024 take 2 tablets by mouth once daily at mealtime predniSONE (DELTASONE) 20 mg tablet Take 2 tablets by mouth once daily for 4 days. Take daily with food. 8 tablet 01/29/2024 02/02/2024 Active Turmeric Root Extract (13 sources) Start: 07-26-2020 take 500 mg by mouth once daily Turmeric Root Extract Active 500 MG PO DAILY July 26, 2020 11:17am Start: 07-26-2020 take 500 mg by mouth once daily Turmeric Root Extract Active 500 MG PO DAILY July 26, 2020 12:00am End: 02-08-2023 TURMERIC ORAL Take by mouth once daily. 0 02/08/2023 Discontinued (Other) TURMERIC ORAL Ta ke by mouth once daily. 0 Active Comment on above: Take by mouth once d aily. Vitamin B Complex (4 sources) Start: 07-26-2020 Vitamin B Comp rich Active 1 EACH PO DAILY July 26, 2020 11:17am Start: 07-26-2020 End: 08-08-2023 Vitamin B Complex Discontinu ed 1 EACH PO DAILY July 26, 2020 12:00am August 08, 2023 2:12pm Start: 07-26-2020 Vitamin B Comp rich Active 1 EACH PO DAILY July 26, 2020 12:00am vitamin B12 (4 sources) Vitamin B12 Start: 07-26-2020 take 1000 ug by mouth once daily Cyanocobalamin (Vitamin B-12) Active 1000 MCG PO DAILY@0800 July 26, 2020 12:00am Start: 07-26-2020 take 1000 ug by mout h once daily Cyanocobalamin (Vitamin B-12) Active 1000 MCG PO DAILY@0800 July 26, 2020 12:00am Completed/Discontinued Medications Medication Drug Class(es) Dates Sig (Normalized) Sig (Original) albuterol 0.83 mg/ml inhalation solution (3 sources) beta2-Adrenergic Agonist Start: 09-22-2024 End: 09-22-2024 albuterol 2.5 mg /3 mL (0.083 %) 2.5 mg (PROVENTIL) Start: 09-22-2024 End: 09-22-2024 albuterol 2.5 mg /3 mL (0.08 3 %) 2.5 mg (PROVENTIL) Start: 09-22-2024 End: 09-22-2024 take 1 dose by inhalation once 2.5 mg, INHALATION, ONC E, 1 dose, On Sun09/22/24 at 1530 ascorbic acid 1000 mg oral tablet (9 sources) Vitamin C Start: 07-26-2020 End: 08-08-2023 take 1000 mg by mouth once daily Ascorbic Acid (Vitamin C) Discontinued 1000 MG PO DAILY July 26, 2020 12:00am August 08, 2023 2:11pm Comment on above: Take 1,000 mg by allison th once daily. gluc garcia/chondro garcia A/vit C/Mn (GLUCOSAMINE 1500 COMPLEX ORAL) (14 sources) End: 02-08-2023 gluc garcia/chondro garcia A/vit C/Mn (GLUCOSAMINE 1500 COMPLEX ORAL) Take by mouth once daily. 0 02/08/2023 Discontinued (Other) gluc garcia/chondro garcia A/vit C/Mn (GLUCOSAMINE 1500 COMPLEX ORAL) Take by mouth once daily. 0 Active gluc garcia/chondro garcia A/vit C/Mn (GLUCOSAMINE 1500 COMPLEX ORAL) Take by mouth. 0 Active Comment on above: Take by mouth. Take by mouth once d aily. nabumetone 750 mg oral tablet (8 sources) Nonsteroidal Anti-inflammatory Drug Start: 02-10-20 End: 02-09-20 take 1 tablet by mouth twice daily nabumetone (RELAFEN) 750 mg tablet Take 750 mg by mouth twice daily. 0 02/09/2022 02/08/2023 Discontinued (Other) Comment on above: Take 750 mg by mouth twice daily. sulfamethoxazole 800 mg / trimethoprim 160 mg oral tablet (1 source) Dihydrofolate Reductase Inhibitor Antibacterial, Sulfonamide Antimicrobial Start: 11-25-19 End: 12-02-19 take 1 tablet by mouth twice daily sulfamethoxazole-tr imethoprim (BACTRIM DS) 800-160 mg per tablet Take 1 tablet by mouth twice daily for 7 days. 14 tablet 0 11/24/2022 12/01/2022 Comment on above: Take 1 tablet by allison twice daily for 7 days. AEPUDIY-HFTG-VLVKB-OREG- CAPRYL ORAL (5 sources) End: 02-07-20 HINKFYE-ANMM-GPBKS- OREG-CAPRYL ORAL Take by mouth. Tumeric only 0 02/06/2022 Discontinued (Discontinued by Patient) UWDNQOT-CGWY-VEN IO-TRRB-URVGCK ORAL Take by mouth. Tumeric only 0 Active Comment on above: Take by mouth. Tumer ic only Turmeric Root Extract (1 source) Start: 07-26-2020 End: 08-08-2023 take 500 mg by mouth once daily Turmeric Root Extract Discontinued 500 MG PO DAILY July 26, 2020 12:00am August 08, 2023 2:12pm Problems Active Problems Problem Classification Problem Date Documented Date Episodic/Chronic Acute bronchitis (20 sources) Acute bronchitis; Translations: [Acute bronchitis, unspecified] Onset: 05-14-2019 05-14-2019 Episodic Asthma (20 sources) Moderate persistent asthma controlled; Translations: [Moderate persistent asthma, uncomplicated] Onset: 03-22-2015 Chronic Chronic obstructive pulmonary disease and bronchiectasis (1 source) Bronchitis, not specified as acute or chronic; Translations: [Sinobronchitis] Onset: 09-22-2024 Episodic Disorders of lipid metabolism (20 sources) Dyslipidemia; Translations: [Hyperlipidemia, unspecified] Onset: 05-14-2019 Chronic Esophageal disorders (20 sources) Gastroesophageal reflux disease; Translations: [Gastro-esophageal reflux disease without esophagitis] Onset: 07-15-2013 07-15-2013 Chronic Immunizations and screening for infectious disease (11 sources) Patient encounter status; Translations: [Encounter for screening for other viral diseases] Episodic Menopausal disorders (5 sources) Postmenopausal bleeding; Translations: [Postmenopausal bleeding] 06-26-2023 Chronic Neoplasms of unspecified nature or uncertain behavior (1 source) Neoplasm of unspecified behavior of bone, soft tissue, and skin; 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] Onset: 09-26-2024 Episodic Nutritional deficiencies (20 sources) Vitamin D deficiency; Translations: [Vitamin D deficiency, unspecified] Onset: 03-09-2017 03-09-2017 Chronic Open wounds of extremities (1 source) Injury of left leg; Translations: [Unspecified open wound, left lower leg, initial encounter] 11-15-2023 Episodic Osteoarthritis (20 sources) Osteoarthritis of right knee joint; Translations: [Unilateral primary osteoarthritis, right knee] Onset: 05-10-2018 05-10-2018 Chronic Other congenital anomalies (20 sources) Porokeratosis; Translations: [Other specified congenital malformations of skin] Onset: 01-02-2012 01-02-2012 Chronic Other connective tissue disease (20 sources) History of right total knee replacement; Translations: [Presence of right artificial knee joint] Onset: 08-09-2021 Chronic Other female genital disorders (1 source) Polyp of corpus uteri; Translations: [Polyp of corpus uteri] 08-01-2023 Episodic Other female genital disorders (2 sources) Polyp of corpus uteri; Translations: [Polyp of corpus uteri] 08-16-2023 Episodic Other lower respiratory disease (1 source) Cough; Translations: [Acute cough] 09-22-2024 Episodic Other non-traumatic joint disorders (20 sources) Arthropathy of multiple joints; Translations: [Arthropathy, unspecified] Onset: 05-10-2018 Chronic Other nutritional; endocrine; and metabolic disorders (20 sources) Body mass index 40+ - severely obese; Translations: [Morbid (severe) obesity due to excess calories] Onset: 07-15-2013 Chronic Other screening for suspected conditions (not mental disorders or infectious disease) (2 sources) Plain X-ray result abnormal; Translations: [Abnormal findings on diagnostic imaging of other specified body structures] Onset: 09-22-2024 09-22-2024 Chronic Other screening for suspected conditions (not mental disorders or infectious disease) (4 sources) Cancer cervix screening status; Translations: [Encounter for screening for malignant neoplasm of cervix] Onset: 12-12-2024 Episodic Other upper respiratory infections (3 sources) Chronic sinusitis, unspecified; Translations: [Unspecified sinusitis (chronic)] Onset: 09-22-2024 05-20-2023 Chronic Residual codes; unclassified (2 sources) Pain; Translations: [Pain, unspecified] Episodic Screening and history of mental health and substance abuse codes (2 sources) Encounter for screening for depression; Translations: [Encounter for screening examination for other mental health and behavioral disorders] Onset: 09-26-2024 Episodic Spondylosis; intervertebral disc disorders; other back problems (2 sources) Low back pain; Translations: [Lumbar pain] 01-29-2024 Episodic Unclassified (1 source) Acute cough; Translations: [Acute cough] Onset: 09-22-2024 Unclassified (1 source) Lumbar pain; Translations: [Lumbar pain] Onset: 01-29-2024 Past or Other Problems Problem Classification Problem Date Documented Da te Episodic/Chronic Diabetes mellitus without complication (20 sources) Impaired fasting glycemia; Translations: [Impaired fasting glucose] Onset: 03-09-2017 Episodic Malaise and fatigue (20 sources) Fatigue; Translations: [Other fatigue] Onset: 10-06-2022 Episodic Other connective tissue disease (20 sources) Bursitis of shoulder; Translations: [Bursitis of unspecified shoulder] Onset: 10-11-2016 10-11-2016 Episodic Other connective tissue disease (20 sources) Pain of bilateral hands; Translations: [Pain in right hand] Onset: 11-25-2019 11-25-2019 Episodic Other lower respiratory disease (20 sources) Chronic cough; Translations: [Chronic cough] Onset: 07-15-2013 07-15-2013 Episodic Other lower respiratory disease (20 sources) Rib pain; Translations: [Pleurodynia] Onset: 10-11-2016 10-11-2016 Episodic Other non-traumatic joint disorders (1 source) Shoulder pain; Translations: [Pain in left shoulder] Onset: 02-28-2022 02-28-2022 Episodic Other non-traumatic joint disorders (20 sources) Pain in left shoulder; Translations: [Pain in joint, shoulder region] Onset: 02-28-2022 02-28-2022 Episodic Other skin disorders (20 sources) Actinic keratosis; Translations: [Actinic keratosis] Onset: 10-06-2022 Episodic Skin and subcutaneous tissue infections (20 sources) Cellulitis of right lower limb; Translations: [Cellulitis of right lower limb] Onset: 10-11-2016 10-11-2016 Episodic Unclassified (1 source) Patient encounter status 12-01-2024 Results Test Name Value Interpretation Reference Range Facility [facility] 11-28-2024 [facility] Telephone (FAMPWS) NANCY WELDON ([id number]) 1970 F Date Time Provider Department 11/28/24 CAM TRIPP [facility] During your visit today, we recorded the following information about you: Kameron Mcdowell RN 11/28/2024 3:49 PM Signed Patient calls to request an order for her mammogram to be placed. Last completed 12/13/2024. Pended. Patient would like to have order faxed to [facility]. Please call patient at [phone] once sent. YASMANY Eason Jordan L, DO 12/01/2024 7:24 AM Signed Order placed, please fax and notify patient DO Andrew Nash Krystle, RN 12/01/2024 12:18 PM Signed Order faxed to [facility] as requested. Notified patient to follow up with [facility] for scheduling with verbalized understanding. Kameron Mcdowell RN Allergies As of Date: 11/28/2024 Noted Allergy Reaction VOLTAREN (DICLOFENAC SODIUM) 09/21/2015 2 - Rash Comments: gel Date Reviewed: 09/27/2024 Reviewed by: Olivia Cortes RN - Fully Assessed Reason for Visit: Orders [681] Primary Visit Diagnosis:Encounter for screening mammogram for malignant neoplasm of breast [Z12.31] Order(s):[facility] [[id number]] Order #: [id number] FUTURE Prescriptions as of 12/01/2024 - fluticasone furoate (ARNUITY ELLIPTA) 100 mcg/actuation inhaler Inhale 1 puff as instructed once daily. Inhale one puff once daily. DO NOT CLICK OPEN UNTIL READY FOR DOSE - meloxicam (MOBIC) 15 mg tablet Take 1 tablet by mouth every afternoon. - omeprazole (PRILOSEC) 20 mg capsule Take 1 capsule by mouth once daily. - levonorgestrel (LILETTA) 20.4 mcg/24 hrs (8 yrs) 52 mg IUD 1 Each by INTRAUTERINE route as directed. - loratadine/pseudoephed rine (ALLERGY RELIEF-D, LORATADINE, ORAL) Take by mouth once daily. - idbzmgx-bjydpwtai-vrku al 180 167-65-200 mg tab Take by mouth once daily. - cyanocobalamin, vitamin B-12, (VITAMIN B-12 ORAL) Take by mouth once daily. - FLUTICASONE PROPIONATE (FLONASE NASAL) Use in the nose once daily. Two in each nostril daily - Cholecalciferol, Vitamin D3, 25 mcg (1,000 unit) cap Take 1,000 Units by mouth twice daily. Takes 2,000 units daily - multivitamins(DAILY MULTIPLE TAB) Take one(1) tablet daily. Problem List As Of Date 11/28/2024 Noted Resolved Porokeratosis [Q82.8] 01/02/2012 GERD (gastroesophageal reflux disease) [K21.9] 07/15/2013 Morbid obesity with BMI of 40.0-44.9, adult [E6*07/15/2013 Chronic cough [R05.3] 07/15/2013 Asthma, moderate persistent, well-controlled [J*03/22/2015 Cellulitis of right leg [L03.115] 10/11/2016 Rib pain on left side [R07.81] 10/11/2016 Acute shoulder bursitis [M75.50] 10/11/2016 Moderate persistent asthma without complication* 7 Vitamin D deficiency [E55.9] 03/09/2017 IFG (impaired fasting glucose) [R73.01] 03/09/2017 Well adult exam [Z00.00] 05/10/2018 Osteoarthritis of right knee [M17.11] 05/10/2018 Arthritis, multiple joint involvement [M12.9] 05/10/2018 Gastroesophageal reflux disease [K21.9] 05/14/2019 Dyslipidemia [E78.5] 05/14/2019 Acute bronchitis with asthma [J20.9, J45.909] 05/14/2019 Bilateral hand pain [M79.641, M79.642] 11/25/2019 History of total knee arthroplasty, right [Z96.*08/09/2021 Obesity, Class III, BMI 40-49.9 (morbid obesity*08/09/2021 Acute pain of left shoulder [M25.512] 02/28/2022 Primary osteoarthritis of left shoulder [M19.01*02/28/2022 Fatigue [R53.83] 10/06/2022 Actinic keratosis [L57.0] 10/06/2022 Encounter Status:Closed by KAMERON MCDOWELL on 12/01/24 [facility] CNOVon 09-26-2024 CNOV Office Visit (FAMPWS ) NANCY WELDON ([id number]) 1970 F Date Time Provider Department 09/26/24 3:00 PM MARLEEN TREJO FAMPWS During your visit today, we recorded the following information about you: Temperature Pulse Blood pressure Weight 97.9 degrees 77/minute 120/68 117.5 kg Marleen Trejo APRN.RN NEUROSURGICAL 09/26/2024 3:22 PM Signed This is a 54 year old female who presents today with: Patient presents with: Follow Up: Sinobronchitis HISTORY OF PRESENT ILLNESS: Nancy Weldon is a 54 year old female. Patient presents with: Follow Up: Sinobronchitis is a 54-year-old female with a history of osteoarthritis, presenting for follow-up of a cough and chest congestion, and evaluation of a bone spur noted on a recent chest x-ray. Cough and Chest Congestion: - Persistent cough and chest congestion. - Cough initially caused pain in the sides; now associated with back pain. - No longer experiencing head congestion; denies sore throat, nausea, emesis, diarrhea, or rashes. - Using Nasacort nasal spray daily. - Currently on doxycycline (7-day course) and prednisone (5-day course); one day remaining of prednisone and a couple of days remaining of doxycycline. - Reports significant improvement in symptoms since starting medications. - Denies headaches, fevers, or chills. Bone Spur: - Recent chest x-ray revealed a possible bone spur. - Uncertain about the location of the bone spur. - Previous back x-ray in January of last year showed multi-level degenerative disc disease with osteophytes. - History of osteoarthritis in the back, shoulder, and knees; right knee has been replaced. PAST MEDICAL HISTORY: PAST MEDICAL HISTORY Diagnosis Date Allergic rhinitis Arthritis Asthma (HCC) GERD (gastroesophageal reflux disease) OA (osteoarthritis) of knee Dr. [facility] Vitamin D deficiency PAST SURGICAL HISTORY Procedure Laterality Date APPENDECTOMY 05/07/1979 APPENDECTOMY HX BACK SURGERY HX CARPAL TUNNEL 05/07/2010 bilateral wrist COLONOSCOPY FLX DX W/COLLJ SPEC WHEN PFRMD 12/27/2020 EXCIS LESION, MENISCUS OR CAPSULE, KNEE 05/28/13,08/2014 Dr. [facility], right knee medial meniscus repair HYSTEROSCOPY BX ENDOMETRIUMAND/POLYPC W/WO DANDC 08/16/2023 DANDC w/ polyp resection and Liletta IUD insertion JOINT REPLACEMENT HX Right 08/09/2020 LOW BACK DISK SURGERY 05/07/2001 L4-herniated disc OSTECTOMY CALCANEUS SPUR W/WO PLNTAR FASCIAL RLS left foot TOTAL KNEE REPLACEMENT Right 08/09/2020 Dr. Willis ALLERGIES Voltaren [Diclofenac Sodium] MEDICATIONS Current Outpatient Medications Medication Sig doxycycline monohydrate 100 mg tablet Take 1 tablet by mouth two times a day for 7 days. predniSONE (DELTASONE) 20 mg tablet Take 2 tablets by mouth once daily for 5 days. Take daily with food. meloxicam (MOBIC) 15 mg tablet Take 1 tablet by mouth every afternoon. fluticasone furoate (ARNUITY ELLIPTA) 100 mcg/actuation inhaler Inhale 1 Puff as instructed once daily. Inhale one puff once daily. DO NOT CLICK OPEN UNTIL READY FOR DOSE omeprazole (PRILOSEC) 20 mg capsule Take 1 capsule by mouth once daily. levonorgestrel (LILETTA) 20.4 mcg/24 hrs (8 yrs) 52 mg IUD 1 Each by INTRAUTERINE route as directed. loratadine/pseudoephed rine (ALLERGY RELIEF-D, LORATADINE, ORAL) Take by mouth once daily. niuefxp-rnmaorwfv-xviw al 180 167-65-200 mg tab Take by mouth once daily. cyanocobalamin, vitamin B-12, (VITAMIN B-12 ORAL) Take by mouth once daily. FLUTICASONE PROPIONATE (FLONASE NASAL) Use in the nose once daily. Two in each nostril daily Cholecalciferol, Vitamin D3, 25 mcg (1,000 unit) cap Take 1,000 Units by mouth twice daily. Takes 2,000 units daily multivitamins(DAILY MULTIPLE TAB) Take one(1) tablet daily. No current facility-administered medications for this visit. FAMILY HISTORY Problem Relation Age of Onset Asthma Mother Asthma Father Dementia Father other (heart disease) Father 64 Breast Cancer Maternal Grandmother Diabetes Paternal Grandmother Social History Tobacco Use Smoking status: Never Smokeless tobacco: Former Types: Snuff Tobacco comments: chew tobacco Vaping Use Vaping status: Never Used Substance Use Topics Alcohol use: No Drug use: No REVIEW OF SYSTEMS Constitutional: (-) fever, (-) chills Head: (-) headaches Ears/Nose/Mouth/Throat : (-) sore throat, (-) congestion Respiratory: (+) cough, (+) chest congestion, (-) phlegm Gastrointestinal: (-) nausea, (-) vomiting, (-) diarrhea Musculoskeletal: (+) side pain, (+) back pain Skin: (-) rashes or itching EXAM: BP 120/68 Pulse 77 Temp 36.6 ?C (97.9 ?F) (Left Tympanic) Wt 117.5 kg (259 lb) LMP 06/09/2023 (Within Weeks) SpO2 97% BMI 41.62 kg/m? PHYSICAL EXAM: GENERAL: NAD, alert and oriented. SKIN: Unremarkable, no rash or skin lesions. HE (more content not included)... Normal [facility] XR THORACIC 3V AP/LAT/SWIMME RSon 09-26-2024 XR THORACIC 3V AP/LAT/SWIMMERS * * *Final Report* * * DATE OF EXAM: Sep 26 2024 3:38PM WOX [id number] - XR THORACIC 3V AP/LAT/SWIMMERS / PROCEDURE REASON: Neoplasm of thoracic spine * * * * Physician Interpretation * * * * PROCEDURE: Thoracic spine INDICATION: Neoplasm of thoracic spine .Neoplasm vs osteophyte in thoracic spine seen during chest Xray TECHNIQUE: XR THORACIC 3V AP/LAT/SWIMMERS COMPARISON: Chest 09/22/2024 FINDINGS: Slight dextroscoliosis. No fracture or subluxation. Mild to moderate degenerative disc disease with marginal spurring at all levels. No destructive osseous lesion or paraspinal abnormality. No lesion is seen in the upper thoracic spine as was suggested on the lateral view of the previous chest exam. IMPRESSION: Degenerative changes Retail Management Keyholder: NITIN Transcribe Date/Time: Oct 01 2024 9:01A Dictated by : LARRY WILHELM MD This examination was interpreted and the report reviewed and electronically signed by: LARRY WILHELM MD on Oct 01 2024 9:02AM EST [id number] Normal [facility] CNOVon 09-22-2024 CNOV Office Visit (UCWSTR ) NANCY WELDON ([id number]) 1970 F Date Time Provider Department 09/22/24 3:00 PM JONATHAN DUARTE UCWSTR During your visit today, we recorded the following information about you: Temperature Pulse Respiration Blood pressure 97.9 degrees 74/minute 18/minute 124/74 Weight 117.6 kg Jonathan Duarte APRN.RN NEUROSURGICAL 09/22/2024 3:39 PM Signed [facility] Subjective HPI HPI Nancy Weldon is a 54 year old female who presents today for CC of cough, congestion. This started 2 weeks ago. Has tried otc medication and asthma medication for relief. Symptoms are worsened by nothing. Risk factors hx of asthma. nonsmoker. .Patient presents with: Chest Congestion: cough x 2 weeks PAST MEDICAL HISTORY Diagnosis Date Allergic rhinitis Arthritis Asthma GERD (gastroesophageal reflux disease) OA (osteoarthritis) of knee Dr. Willis [facility] Vitamin D deficiency PAST SURGICAL HISTORY Procedure Laterality Date APPENDECTOMY 05/07/1979 APPENDECTOMY HX BACK SURGERY HX CARPAL TUNNEL 05/07/2010 bilateral wrist COLONOSCOPY FLX DX W/COLLJ SPEC WHEN PFRMD 12/27/2020 EXCIS LESION, MENISCUS OR CAPSULE, KNEE 05/28/13,08/2014 Dr. [facility], right knee medial meniscus repair HYSTEROSCOPY BX ENDOMETRIUMAND/POLYPC W/WO DANDC 08/16/2023 DANDC w/ polyp resection and Liletta IUD insertion JOINT REPLACEMENT HX Right 08/09/2020 LOW BACK DISK SURGERY 05/07/2001 L4-herniated disc OSTECTOMY CALCANEUS SPUR W/WO PLNTAR FASCIAL RLS left foot TOTAL KNEE REPLACEMENT Right 08/09/2020 Dr. Willis ALLERGIES Voltaren [Diclofenac Sodium] MEDICATIONS meloxicam (MOBIC) 15 mg tablet Take 1 tablet by mouth every afternoon. fluticasone furoate (ARNUITY ELLIPTA) 100 mcg/actuation inhaler Inhale 1 Puff as instructed once daily. Inhale one puff once daily. DO NOT CLICK OPEN UNTIL READY FOR DOSE omeprazole (PRILOSEC) 20 mg capsule Take 1 capsule by mouth once daily. levonorgestrel (LILETTA) 20.4 mcg/24 hrs (8 yrs) 52 mg IUD 1 Each by INTRAUTERINE route as directed. loratadine/pseudoephed rine (ALLERGY RELIEF-D, LORATADINE, ORAL) Take by mouth once daily. hojgtks-zhaqmowkd-xyjl al 180 167-65-200 mg tab Take by mouth once daily. cyanocobalamin, vitamin B-12, (VITAMIN B-12 ORAL) Take by mouth once daily. FLUTICASONE PROPIONATE (FLONASE NASAL) Use in the nose once daily. Two in each nostril daily Cholecalciferol, Vitamin D3, 25 mcg (1,000 unit) cap Take 1,000 Units by mouth twice daily. Takes 2,000 units daily multivitamins(DAILY MULTIPLE TAB) Take one(1) tablet daily. FAMILY HISTORY Problem Relation Age of Onset Asthma Mother Asthma Father Dementia Father other (heart disease) Father 64 Breast Cancer Maternal Grandmother Diabetes Paternal Grandmother Social History Tobacco Use Smoking status: Never Smokeless tobacco: Former Types: Snuff Tobacco comments: chew tobacco Vaping Use Vaping status: Never Used Substance Use Topics Alcohol use: No Drug use: No Review of Systems Objective BP 124/74 Pulse 74 Temp 36.6 ?C (97.9 ?F) Resp 18 Wt 117.6 kg (259 lb 4.2 oz) LMP 06/09/2023 (Within Weeks) SpO2 97% BMI 41.67 kg/m? Physical Exam Pulmonary: Breath sounds: Rhonchi (scattered bilat) present. No decreased breath sounds, wheezing or rales. Comments: Lung sounds clear after neb treatment. {ASSESSMENT/PLAN: 1. Sinobronchitis - ICD9: 473.9, 490, ICD10: J32.9, J40 (primary diagnosis) - Will begin treatment with as per antibiotic as written, see orders - Supportive care with plenty of fluids, rest, and analgesia prn. - Follow up in 3-5 days if symptoms persist or worsen. - DOXYCYCLINE MONOHYDRATE 100 MG TABLET - PREDNISONE 20 MG TABLET 2. Abnormal x-ray - ICD9: 793.99, ICD10: R93.89 Will schedule f/u with pcp for recheck 3. Acute cough - ICD9: 786.2, ICD10: R05.1 - XR CHEST 2V FRONTAL/LAT IMPRESSION: Small mass lesion versus osteophyte in the spine on lateral view. Consider follow-up. Dictated by : DONIS OLMEDO MD - ALBUTEROL SULFATE 2.5 MG/3 ML (0.083 %) SOLUTION FOR NEBULIZATION -improvement in breath sounds and patient cough noted after neb treatment Jonathan Duarte APRN.RN NEUROSURGICAL History and Record Review External record(s) reviewed: prior outpatient record and prior labs/imaging. Findings from review of outpatient records: asthma Findings from review of prior labs/imaging: Previous Renal Function Panel Reviewed 03/28/2024: BUN 13; Creatinine 0.60; Estimated Glomerular Filtration Rate 107 Disposition The patient was discharged. Procedures Maday Morales MA 09/22/2024 3:39 PM Signed 2.5 solution aerosol treatment given per provider's orders. Prior to treatment O2 sat is 95%. Treatment completed. O2 sat is 95%. Tolerated well. Maday Morales MA Allergies As of Date: 09/22/2024 Noted Allergy Reaction VOLTAREN (DICLOFENAC SO (more content not included)... Normal [facility] XR CHEST 2V FRONTAL/LATon XR CHEST 2V FRONTAL/LAT * * *Final Report* * * DATE OF EXAM: Sep 22 2024 3:18PM WOX 5291 - XR CHEST 2V FRONTAL/LAT / PROCEDURE REASON: Acute cough * * * * Physician Interpretation * * * * EXAMINATION: CHEST RADIOGRAPH (2 VIEW FRONTAL and LATERAL) CLINICAL HISTORY: Acute cough MQ: XC2_6 EXAM DATE/TIME: 09/22/2024 3:18 PM COMPARISON: No relevant prior studies available. RESULT: Lines, tubes, and devices: None. Lungs and pleura: No consolidation. Small mass lesion versus osteophyte in the spine, only seen on lateral view. No pleural effusion. No pneumothorax. Cardiomediastinal silhouette: Normal cardiomediastinal silhouette. Bones and soft tissues: There are degenerative changes in the spine. IMPRESSION: Small mass lesion versus osteophyte in the spine on lateral view. Consider follow-up. Retail Management Keyholder: NITIN Transcribe Date/Time: Sep 22 2024 3:18P Dictated by : DONIS OLMEDO MD This examination was interpreted and the report reviewed and electronically signed by: DONIS OLMEDO MD on Sep 22 2024 3:20PM EST [id number] Normal [facility] XR Chest PA and Lateralon IMPRESSION: Small mass lesion versus osteophyte in the spine on lateral view. Consider follow-up. Retail Management Keyholder: PSCB Transcribe Date/Time: Sep 22 2024 3:18P Dictated by : DONIS OLMEDO MD This examination was interpreted and the report reviewed and electronically signed by: DONIS OLMEDO MD on Sep 22 2024 3:20PM [facility] DIVISION OF RADIOLOGY * * *Final Report* * * DATE OF EXAM: Sep 22 2024 3:18PM WOX 5291 - XR CHEST 2V FRONTAL/LAT / PROCEDURE REASON: Acute cough * * * * Physician Interpretation * * * * EXAMINATION: CHEST RADIOGRAPH (2 VIEW FRONTAL & LATERAL) CLINICAL HISTORY: Acute cough MQ: XC2_6 EXAM DATE/TIME: 09/22/2024 3:18 PM COMPARISON: No relevant prior studies available. RESULT: Lines, tubes, and devices: None. Lungs and pleura: No consolidation. Small mass lesion versus osteophyte in the spine, only seen on lateral view. No pleural effusion. No pneumothorax. Cardiomediastinal silhouette: Normal cardiomediastinal silhouette. Bones and soft tissues: There are degenerative changes in the spine. DIVISION OF RADIOLOGY Provider, [facility] - 09/22/2024 * * *Final Report* * * DATE OF EXAM: Sep 22 2024 3:18PM WOX 5291 - XR CHEST 2V FRONTAL/LAT / PROCEDURE REASON: Acute cough * * * * Physician Interpretation * * * * EXAMINATION: CHEST RADIOGRAPH (2 VIEW FRONTAL & LATERAL) CLINICAL HISTORY: Acute cough MQ: XC2_6 EXAM DATE/TIME: 09/22/2024 3:18 PM COMPARISON: No relevant prior studies available. RESULT: Lines, tubes, and devices: None. Lungs and pleura: No consolidation. Small mass lesion versus osteophyte in the spine, only seen on lateral view. No pleural effusion. No pneumothorax. Cardiomediastinal silhouette: Normal cardiomediastinal silhouette. Bones and soft tissues: There are degenerative changes in the spine. IMPRESSION IMPRESSION: Small mass lesion versus osteophyte in the spine on lateral view. Consider follow-up. Retail Management Keyholder: NITIN Transcribe Date/Time: Sep 22 2024 3:18P Dictated by : DONIS OLMEDO MD This examination was interpreted and the report reviewed and electronically signed by: DONIS OLMEDO MD on Sep 22 2024 3:20PM EST [facility] Radiology Study observation (narrative) [facility] XR Chest PA and LateralOrder ed By: [facility] Provider on 09-22-2024 [facility] Alexei 07-08-2024 CNPN Telephone (FAMPWS) NANCY WELDON ([id number]) 1970 F Date Time Provider Department 07[facility]08[facility]24 [facility] During your visit today, we recorded the following information about you: Kameron Mcdowell RN 07/08/2024 9:29 AM Signed Patient calls to ask if provider would take over filling the meloxicam prescription. Patient reports it was originally ordered by Dr. Willis but she now only goes to that office every few years to have her knees checked. If provider agreeable [facility] Pended for review. YASMANY Eason Jordan L, DO 07/08/2024 4:37 PM Signed Yes, I am okay with filling rx Please let her know rx sent to pharmacy Cam Tripp DO The following approved medication requests have been transmitted electronically. Requested Prescriptions Signed Prescriptions Disp Refills meloxicam (MOBIC) 15 mg tablet 90 tablet 1 Sig: Take 1 tablet by mouth every afternoon. Authorizing Provider: CAM TRIPP DO McCullough, Krystle, RN 07/09/2024 8:30 AM Signed Call placed to patient and notified [facility] Kameron Mcdowell RN Allergies As of Date: 07/08/2024 Noted Allergy Reaction VOLTAREN (DICLOFENAC SODIUM) 09/21/2015 2 - Rash Comments: gel Date Reviewed: 01/29/2024 Reviewed by: Maday Morales MA - Fully Assessed Reason for Visit: Patient Question [8427] Order(s):meloxicam (MOBIC) 15 mg tabletTake 1 tablet by mouth every afternoon.Disp: 90 tabletRfl: 1 Prescriptions as of 07/09/2024 - meloxicam (MOBIC) 15 mg tablet Take 1 tablet by mouth every afternoon. - fluticasone furoate (ARNUITY ELLIPTA) 100 mcg/actuation inhaler Inhale 1 Puff as instructed once daily. Inhale one puff once daily. DO NOT CLICK OPEN UNTIL READY FOR DOSE - omeprazole (PRILOSEC) 20 mg capsule Take 1 capsule by mouth once daily. - levonorgestrel (LILETTA) 20.4 mcg/24 hrs (8 yrs) 52 mg IUD 1 Each by INTRAUTERINE route as directed. - loratadine/pseudoephed rine (ALLERGY RELIEF-D, LORATADINE, ORAL) Take by mouth once daily. - erdpbcv-anjymwkjz-mgie al 180 167-65-200 mg tab Take by mouth once daily. - cyanocobalamin, vitamin B-12, (VITAMIN B-12 ORAL) Take by mouth once daily. - FLUTICASONE PROPIONATE (FLONASE NASAL) Use in the nose once daily. Two in each nostril daily - Cholecalciferol, Vitamin D3, 25 mcg (1,000 unit) cap Take 1,000 Units by mouth twice daily. Takes 2,000 units daily - multivitamins(DAILY MULTIPLE TAB) Take one(1) tablet daily. Problem List As Of Date 07/08/2024 Noted Resolved Porokeratosis [Q82.8] 01/02/2012 GERD (gastroesophageal reflux disease) [K21.9] 07/15/2013 Morbid obesity with BMI of 40.0-44.9, adult [E6*07/15/2013 Chronic cough [R05.3] 07/15/2013 Asthma, moderate persistent, well-controlled [J*03/22/2015 Cellulitis of right leg [L03.115] 10/11/2016 Rib pain on left side [R07.81] 10/11/2016 Acute shoulder bursitis [M75.50] 10/11/2016 Moderate persistent asthma without complication* 7 Vitamin D deficiency [E55.9] 03/09/2017 IFG (impaired fasting glucose) [R73.01] 03/09/2017 Well adult exam [Z00.00] 05/10/2018 Osteoarthritis of right knee [M17.11] 05/10/2018 Arthritis, multiple joint involvement [M12.9] 05/10/2018 Gastroesophageal reflux disease [K21.9] 05/14/2019 Dyslipidemia [E78.5] 05/14/2019 Acute bronchitis with asthma [J20.9, J45.909] 05/14/2019 Bilateral hand pain [M79.641, M79.642] 11/25/2019 History of total knee arthroplasty, right [Z96.*08/09/2021 Obesity, Class III, BMI 40-49.9 (morbid obesity*08/09/2021 Acute pain of left shoulder [M25.512] 02/28/2022 Primary osteoarthritis of left shoulder [M19.01*02/28/2022 Fatigue [R53.83] 10/06/2022 Actinic keratosis [L57.0] 10/06/2022 Prescriptions ordered this encounter Disp Refills Start End MELOXICAM 15 MG TABLET 90 t* 1 07/08/2024 Route: ORAL Sig: Take 1 tablet by mouth every afternoon. Medications Discontinued During This Encounter Prescriptions - meloxicam (MOBIC) 15 mg tablet (Discontinued) Take 1 tablet by mouth every afternoon. Encounter Status:Closed by KAMERON MCDOWELL on 07/09/24 [facility] Stacey 04-14-2024 CNOV Office Visit (FAMPWS ) NANCY WELDON ([id number]) 1970 F Date Time Provider Department 04/14/24 12:20 PM [facility] During your visit today, we recorded the following information about you: Temperature Pulse Respiration Blood pressure 97.2 degrees 76/minute 16/minute 110/60 Weight Height 123 kg 1.68 m Cam Tripp DO 04/14/2024 1:39 PM Signed CC: Nancy Weldon is a 53 year old female who presents to the office for physical HPI: Overall she is doing well. Asthma, well controlled, taking Arnuity as prescribed, rare use of albuterol GERD, well controlled, use of prilosec as prescribed Is more physically active recently with her job at [employer] and is walking more. Has lost about 18-20 lbs in the last 4 months Asking for FMLA to help with her mother's appointments etc. PAST MEDICAL HISTORY Diagnosis Date Allergic rhinitis Arthritis Asthma GERD (gastroesophageal reflux disease) OA (osteoarthritis) of knee Dr. Willis orth[facility]ics Vitamin D deficiency PAST SURGICAL HISTORY Procedure Laterality Date APPENDECTOMY 05/07/1979 APPENDECTOMY HX BACK SURGERY HX CARPAL TUNNEL 05/07/2010 bilateral wrist COLONOSCOPY FLX DX W/COLLJ SPEC WHEN PFRMD 12/27/2020 EXCIS LESION, MENISCUS OR CAPSULE, KNEE 05/28/13,08/2014 Dr. [facility], right knee medial meniscus repair HYSTEROSCOPY BX ENDOMETRIUMAND/POLYPC W/WO DANDC 08/16/2023 DANDC w/ polyp resection and Liletta IUD insertion JOINT REPLACEMENT HX Right 08/09/2020 LOW BACK DISK SURGERY 05/07/2001 L4-herniated disc OSTECTOMY CALCANEUS SPUR W/WO PLNTAR FASCIAL RLS left foot TOTAL KNEE REPLACEMENT Right 08/09/2020 Dr. Willis Social History: Social History Tobacco Use Smoking status: Never Smokeless tobacco: Former Types: Snuff Tobacco comments: chew tobacco Vaping Use Vaping status: Never Used Substance Use Topics Alcohol use: No Drug use: No FAMILY HISTORY Problem Relation Age of Onset Asthma Mother Asthma Father Dementia Father other (heart disease) Father 64 Breast Cancer Maternal Grandmother Diabetes Paternal Grandmother Current Outpatient prescriptions: fluticasone furoate (ARNUITY ELLIPTA) 100 mcg/actuation inhaler Inhale 1 Puff as instructed once daily. Inhale one puff once daily. DO NOT CLICK OPEN UNTIL READY FOR DOSE omeprazole (PRILOSEC) 20 mg capsule Take 1 capsule by mouth once daily. levonorgestrel (LILETTA) 20.4 mcg/24 hrs (8 yrs) 52 mg IUD 1 Each by INTRAUTERINE route as directed. meloxicam (MOBIC) 15 mg tablet Take 1 tablet by mouth every afternoon. loratadine/pseudoephed rine (ALLERGY RELIEF-D, LORATADINE, ORAL) Take by mouth once daily. mdmckcc-sjjmtjxbt-bxlb al 180 167-65-200 mg tab Take by mouth once daily. cyanocobalamin, vitamin B-12, (VITAMIN B-12 ORAL) Take by mouth once daily. FLUTICASONE PROPIONATE (FLONASE NASAL) Use in the nose once daily. Two in each nostril daily Cholecalciferol, Vitamin D3, 25 mcg (1,000 unit) cap Take 1,000 Units by mouth twice daily. Takes 2,000 units daily multivitamins(DAILY MULTIPLE TAB) Take one(1) tablet daily. Allergies: ALLERGIES Allergen Reactions Voltaren [Diclofena* Rash gel ROS: See HPI PE: 04/14/24 1140 BP: 110/60 Pulse: 76 Resp: 16 Temp: 36.2 ?C (97.2 ?F) TempSrc: Left Tympanic Weight: 123 kg (271 lb 2.7 oz) Height: 168 cm (5' 6.14) Gen: AANDO, NAD, non-toxic appearing, Pleasant, cooperative HEENT: NT/AC, PERRLA, EOMs intact b/l, nares clear and patent b/l, pharynx without erythema, exudate or lesions. Uvula midline. EACs without erythema or debris. TMs pearly ramirez with intact landmarks b/l. Neck: supple, No cervical LAD, no thyromegaly, no carotid bruits CV: RRR, normal S1 and S2, no murmurs, no gallops, no rubs, Pulses 2+ and symmetric in UE and LE b/l Lungs: normal respiratory effort, CTA b/l, no wheezing or rhonchi or rales Abd: soft, obese, NT, ND, +BS, no hepatosplenomegaly MS: FROM all 4 extremities Neuro: CN II-XII intact b/l, strength 5/5 b/l UE and LE, DTRs 2/4 UE and LE, sensation intact. Skin: warm, dry, intact, No rashes or lesions on exposed skin. No edema, normal pulses ASSESSMENT/PLAN: 1. Well adult exam - ICD9: V70.0, ICD10: Z00.00 (primary diagnosis) - Counseled on healthy diet and regular exercise - Discussed need and benefit for weight loss. BMI 43.58 kg/(m2) 2. Dyslipidemia - ICD9: 272.4, ICD10: E78.5 - Controlled - Continue current medications - Counseled on healthy diet and regular exercise 3. Vitamin D deficiency - ICD9: 268.9, ICD10: E55.9 Continue supplement 4. IFG (impaired fasting glucose) - ICD9: 790.21, ICD10: R73.01 Worsening, need for better diet control as d/w her today 5. Arthritis, multiple joint involvement - ICD9: 716.99, ICD10: M12.9 Chronic, stable, continue weight loss efforts. 6. Asthma, moderate persistent, well-cont (more content not included)... Normal [facility] 25-hydroxyvitamin D3 [Mass/Vol] 46.1 ng/mL Normal 31.0-80.0 [facility] Comment on above: Order Comment: Speci men Type: BLOOD SPECIMENOrdering Facility: [facility] Address: [address] [place] [address] Result Comment: Clas sification of 25 OH Vitamin D status: Deficiency/Insufficiency: < or = 30 ng/ml. Sufficiency/Optimal Levels: 31-80 ng/mL Toxicity: > 100 ng/mL. Test performed by chemiluminescent immunoassay. Performed By: #### 1 989-3 ####[facility] LABCLIA [id number] [place] [address] [place] CBC W Auto Differential pane l (Bld)on 03-28-2024 Basophils (Bld) [#/Vol] 0.05 10*3/uL Normal <0.11 [facility] Comment on above: Order Comment: Speci men Type: BLOOD SPECIMENOrdering Facility: [facility] Address: [address] [place] [address] Performed By: #### 5 7021-8 ####[facility] LABCLIA [id number] [place] [address] [place] Basophils/100 WBC (Bld) 0.6 % Normal [facility] Comment on above: Order Comment: Speci men Type: BLOOD SPECIMENOrdering Facility: [facility] Address: [address] [place] [address] Performed By: #### 5 7021-8 ####[facility] LABCLIA [id number] [place] [address] [place] Differential cell count method Nom (Bld) Auto Normal [facility] Comment on above: Order Comment: Speci men Type: BLOOD SPECIMENOrdering Facility: [facility] Address: [address] [place] [address] Performed By: #### 5 7021-8 ####[facility] LABCLIA [id number] [place] [address] [place] Eosinophils (Bld) [#/Vol] 0.23 10*3/uL Normal <0.46 [facility] Comment on above: Order Comment: Speci men Type: BLOOD SPECIMENOrdering Facility: [facility] Address: [address] [place] [address] Performed By: #### 5 7021-8 ####[facility] LABCLIA [id number] [place] [address] [place] Eosinophils/100 WBC (Bld) 2.9 % Normal [facility] Comment on above: Order Comment: Speci men Type: BLOOD SPECIMENOrdering Facility: [facility] Address: [address] [place] [address] Performed By: #### 5 7021-8 ####[facility] LABCLIA [id number] [place] [address] [place] Erythrocyte distribution width (RBC) [Ratio] 13.4 % Normal 11.5-15.0 [facility] Comment on above: Order Comment: Speci men Type: BLOOD SPECIMENOrdering Facility: [facility] Address: [address] [place] [address] Performed By: #### 5 7021-8 ####[facility] LABCLIA [id number] [place] [address] [place] Hematocrit (Bld) [Volume fraction] 46.4 % High 36.0-46.0 [facility] Comment on above: Order Comment: Speci men Type: BLOOD SPECIMENOrdering Facility: [facility] [facility] Address: [address] [place] [address] Performed By: #### 5 7021-8 ####[facility] LABCLIA [id number] [place] [address] [place] Hemoglobin (Bld) [Mass/Vol] 14.7 g/dL Normal 11.5-15.5 [facility] Comment on above: Order Comment: Speci men Type: BLOOD SPECIMENOrdering Facility: [facility] Address: [address] [place] [address] Performed By: #### 5 7021-8 ####[facility] LABCLIA [id number] [place] [address] [place] Immature granulocytes (Bld) [#/Vol] 10*3/uL Normal <0.10 [facility] Comment on above: Order Comment: Speci men Type: BLOOD SPECIMENOrdering Facility: [facility] Address: [address] [place] [address] Performed By: #### 5 7021-8 ####[facility] LABCLIA [id number] [place] [address] [place] Immature granulocytes/100 WBC (Bld) 0.3 % Normal [facility] Comment on above: Order Comment: Speci men Type: BLOOD SPECIMENOrdering Facility: [facility] Address: [address] [place] [address] Performed By: #### 5 7021-8 ####[facility] LABCLIA [id number] [place] [address] [place] Lymphocytes (Bld) [#/Vol] 1.42 10*3/uL Normal 1.00-4.00 [facility] Comment on above: Order Comment: Speci men Type: BLOOD SPECIMENOrdering Facility: [facility] Address: [address] [place] [address] Performed By: #### 5 7021-8 ####[facility] LABCLIA [id number] [place] [address] [place] Lymphocytes/100 WBC (Bld) 17.9 % Normal [facility] Comment on above: Order Comment: Speci men Type: BLOOD SPECIMENOrdering Facility: [facility] Address: [address] [place] [address] Performed By: #### 5 7021-8 ####[facility] LABCLIA [id number] [place] [address] [place] MCH (RBC) [Entitic mass] 26.2 pg Normal 26.0-34.0 [facility] Comment on above: Order Comment: Speci men Type: BLOOD SPECIMENOrdering Facility: [facility] Address: [address] [place] [address] Performed By: #### 5 7021-8 ####[facility] LABCLIA [id number] [place] [address] [place] MCHC (RBC) [Mass/Vol] 31.7 g/dL Normal 30.5-36.0 [facility] Comment on above: Order Comment: Speci men Type: BLOOD SPECIMENOrdering Facility: [facility] Address: [address] [place] [address] Performed By: #### 5 7021-8 ####[facility] LABCLIA [id number] [place] [address] [place] MCV (RBC) [Entitic vol] 82.7 fL Normal 80.0-100.0 [facility] Comment on above: Order Comment: Speci men Type: BLOOD SPECIMENOrdering Facility: [facility] Address: [address] [place] [address] Performed By: #### 5 7021-8 ####[facility] LABCLIA [id number] [place] [address] [place] Monocytes (Bld) [#/Vol] 0.74 10*3/uL Normal <0.87 [facility] Comment on above: Order Comment: Speci men Type: BLOOD SPECIMENOrdering Facility: [facility] Address: [address] [place] [address] Performed By: #### 5 7021-8 ####[facility] LABCLIA [id number] [place] [address] [place] Monocytes/100 WBC (Bld) 9.3 % Normal [facility] Comment on above: Order Comment: Speci men Type: BLOOD SPECIMENOrdering Facility: [facility] Address: [address] [place] [address] Performed By: #### 5 7021-8 ####[facility] LABCLIA [id number] [place] [address] [place] Neutrophils (Bld) [#/Vol] 5.48 10*3/uL Normal 1.45-7.50 [facility] Comment on above: Order Comment: Speci men Type: BLOOD SPECIMENOrdering Facility: [facility] Address: [address] [place] [address] Performed By: #### 5 7021-8 ####[facility] LABCLIA [id number] [place] [address] [place] Neutrophils/100 WBC (Bld) 69.0 % Normal [facility] Comment on above: Order Comment: Speci men Type: BLOOD SPECIMENOrdering Facility: [facility] Address: [address] [place] [address] Performed By: #### 5 7021-8 ####[facility] LABCLIA [id number] [place] [address] [place] Nucleated RBC (Bld) [#/Vol] 10*3/uL Normal <0.01 [facility] Comment on above: Order Comment: Speci men Type: BLOOD SPECIMENOrdering Facility: [facility] Address: [address] [place] [address] Performed By: #### 5 7021-8 ####[facility] LABIA [id number] [place] [address] [place] Nucleated RBC/100 WBC (Bld) [Ratio] 0.0 /100 WBC Normal [facility] Comment on above: Order Comment: Speci men Type: BLOOD SPECIMENOrdering Facility: [facility] Address: [address] [place] [address] Performed By: #### 5 7021-8 ####[facility] LABIA [id number] [place] [address] [place] Platelet mean volume (Bld) [Entitic vol] 11.6 fL Normal 9.0-12.7 [facility] Comment on above: Order Comment: Speci men Type: BLOOD SPECIMENOrdering Facility: [facility] Address: [address] [place] [address] Performed By: #### 5 7021-8 ####[facility] LABIA [id number] [place] [address] [place] Platelets (Bld) [#/Vol] 263 10*3/uL Normal 150-400 [facility] Comment on above: Order Comment: Speci men Type: BLOOD SPECIMENOrdering Facility: [facility] Address: [address] [place] [address] Performed By: #### 5 7021-8 ####[facility] LABIA [id number] [place] [address] [place] RBC (Bld) [#/Vol] 5.61 10*6/uL High 3.90-5.20 [facility] Comment on above: Order Comment: Speci men Type: BLOOD SPECIMENOrdering Facility: [facility] Address: [address] [place] [address] Performed By: #### 5 7021-8 ####[facility] LABCLIA [id number] [address] [address] [place] WBC (Bld) [#/Vol] 7.94 10*3/uL Normal 3.70-11.00 [facility] Comment on above: Order Comment: Speci men Type: BLOOD SPECIMENOrdering Facility: [facility] Address: [address] [place] [address] Performed By: #### 5 7021-8 ####[facility] LABCLIA [id number] [address] [address] [place] [facility] Comprehensive metabolic 2000 panelon 03-28-2024 Albumin [Mass/Vol] 4.0 g/dL Normal 3.9-4.9 [facility] Comment on above: Order Comment: Speci men Type: BLOOD SPECIMENOrdering Facility: [facility] Address: [address] [place] [address] Performed By: #### 2 4331-1, 3015-3, 98245-4 ####[facility] LABCLIA [id number] [place] [address] [place] ALP [Catalytic activity/Vol] 80 U/L Normal 34-123 [facility] Comment on above: Order Comment: Speci men Type: BLOOD SPECIMENOrdering Facility: [facility] Address: [address] [place] [address] Performed By: #### 2 4331-1, 3015-3, 75118-4 ####[facility] LABCLIA [id number] [address] [address] [place] ALT [Catalytic activity/Vol] 23 U/L Normal 7-38 [facility] Comment on above: Order Comment: Speci men Type: BLOOD SPECIMENOrdering Facility: [facility] Address: [address] [place] [address] Performed By: #### 2 4331-1, 6-3, 87520-3 ####[facility] LABCLIA [id number] [facility] [address] [address] [place] Anion gap [Moles/Vol] 11 mmol/L Normal 8-15 [facility] Comment on above: Order Comment: Speci men Type: BLOOD SPECIMENOrdering Facility: [facility] Address: [address] [place] [address] Performed By: #### 2 4331-1, 3015-3, 28593-5 ####[facility] LABCLIA [id number] [facility] [place] [address] [place] AST [Catalytic activity/Vol] 21 U/L Normal 13-35 [facility] Comment on above: Order Comment: Speci men Type: BLOOD SPECIMENOrdering Facility: [facility] Address: [address] [place] [address] Performed By: #### 2 4331-1, 3015-3, 43958-0 ####[facility] LABCLIA [id number] [facility] [place] [address] [place] Bilirubin [Mass/Vol] 0.6 mg/dL Normal 0.2-1.3 [facility] Comment on above: Order Comment: Speci men Type: BLOOD SPECIMENOrdering Facility: [facility] Address: [address] [place], [place] [address] Performed By: #### 2 4331-1, 3015-3, 65762-9 ####[facility] LABCLIA [id number] [facility] [place] [address] [place] Calcium [Mass/Vol] 9.1 mg/dL Normal 8.5-10.2 [facility] Comment on above: Order Comment: Speci men Type: BLOOD SPECIMENOrdering Facility: [facility] Address: [address] [place] [address] Performed By: #### 2 4331-1, 6-3, 27504-6 ####[facility] LABCLIA [id number] [place] [address] [place] Chloride [Moles/Vol] 105 mmol/L Normal 98-107 [facility] Comment on above: Order Comment: Speci men Type: BLOOD SPECIMENOrdering Facility: [facility] Address: [address] [place] [address] Performed By: #### 2 4331-1, 3016-3, 34502-1 ####[facility] LABCLIA [id number] [place] [address] [place] CO2 [Moles/Vol] 23 mmol/L Normal 22-30 [facility] Comment on above: Order Comment: Speci men Type: BLOOD SPECIMENOrdering Facility: [facility] Address: [address] [place] [address] Performed By: #### 2 4331-1, 3016-3, 69614-7 ####[facility] LABCLIA [id number] [place] [address] [place] Creatinine [Mass/Vol] 0.60 mg/dL Normal 0.58-0.96 [facility] Comment on above: Order Comment: Speci men Type: BLOOD SPECIMENOrdering Facility: [facility] Address: [address] [place] [address] Performed By: #### 2 4331-1, 3016-3, 10737-5 ####[facility] LABIA [id number] [place] [address] [place] Creatinine and Glomerular filtration rate.predicted panel (S/P/Bld) 107 mL/min/1.73m??? Normal >=60 [facility] Comment on above: Order Comment: Speci men Type: BLOOD SPECIMENOrdering Facility: [facility] Address: [address] [place] [address] Result Comment: Jany mated Glomerular Filtration Rate (eGFR) is calculated using the 2020 CKD-EPI creatinine equation. This equation utilizes serum creatinine, sex, and age as parameters. The creatinine assay has traceable calibration to isotope dilution-mass spectrometry. Refer to KDIGO guidelines for clinical interpretation. In patients with unstable renal function, e.g. those with acute kidney injury, the eGFR may not accurately reflect actual GFR. Performed By: #### 2 4331-1, 3015-07, ####[facility] LABCLIA [id number] [address] [address] [place] Glucose [Mass/Vol] 119 mg/dL High 74-99 [facility] Comment on above: Order Comment: Yesenia gallegos Type: BLOOD SPECIMENOrdering Facility: [facility] Address: [address] [place] [address] Result Comment: The [place] Diabetes Association (ADA) provides guidance for cutoff values for fasting glucose and random glucose. The ADA defines fasting as no caloric intake for at least 8 hours. Fasting plasma glucose results between 100 to 125 mg/dL indicate increased risk for diabetes (prediabetes). Fasting plasma glucose results greater than or equal to 126 mg/dL meet the criteria for diagnosis of diabetes. In the absence of unequivocal hyperglycemia, results should be confirmed by repeat testing. In a patient with classic symptoms of hyperglycemia or hyperglycemic crisis, random plasma glucose results greater than or equal to 200 mg/dL meet the criteria for diagnosis of diabetes. Reference: Standards of Medical Care in Diabetes 2016, [place] Diabetes Association. Diabetes Care. 2016.39(Suppl 1). Performed By: #### 2 4331-1, 3015-07, ####[facility] LABCLIA [id number] [address] [address] [place] Potassium [Moles/Vol] 4.5 mmol/L Normal 3.7-5.1 [facility] Comment on above: Order Comment: Yesenia gallegos Type: BLOOD SPECIMENOrdering Facility: [facility] Address: [address] [place] [address] Performed By: #### 2 4331-1, 3015-3, ####[facility] LABCLIA [id number] [address] [address] [place] Protein [Mass/Vol] 6.9 g/dL Normal 6.3-8.0 [facility] Comment on above: Order Comment: Speci men Type: BLOOD SPECIMENOrdering Facility: [facility] Address: [address] [place] [address] Performed By: #### 2 4331-1, 3015-07, ####[facility] LABCLIA [id number] [facility] [address] [place] Sodium [Moles/Vol] 139 mmol/L Normal 136-144 [facility] Comment on above: Order Comment: Speci men Type: BLOOD SPECIMENOrdering Facility: [facility] Address: [address] [place] [address] Performed By: #### 2 4331-1, 3015-07, ####[facility] LABCLIA [id number] [place] [address] [place] Urea nitrogen [Mass/Vol] 13 mg/dL Normal 7- [facility] Comment on above: Order Comment: Speci men Type: BLOOD SPECIMENOrdering Facility: [facility] Address: [address] [place] [address] Performed By: #### 2 4331-1, 3015-07, ####[facility] LABCLIA [id number] [address] [address] [place] HbA1c (Bld)on 03-28-2024 Average glucose Estimated from glycated hemoglobin (Bld) [Mass/Vol] 120 mg/dL Normal [facility] Comment on above: Order Comment: Speci men Type: BLOOD SPECIMENOrdering Facility: [facility] Address: [address] [place] [address] Result Comment: eAG: (Estimated average glucose) is a calculated value from HgbA1c and is patient access representative of the average blood glucose level in the last 2-3 month period. Performed By: #### 5 5454-3 ####[facility] LABCLIA [id number] [place] [address] [place] HbA1c (Bld) [Mass fraction] 5.8 % High 4.3-5.6 [facility] Comment on above: Order Comment: Yesenia el Type: BLOOD SPECIMENOrdering Facility: [facility] Address: [address] [place] [address] Result Comment: Amer [place] Diabetes Association guidelines indicate that patients with HgbA1c in the range 5.7-6.4% are at increased risk for development of diabetes, and intervention by lifestyle modification may be beneficial. HgbA1c greater or equal to 6.5% is considered diagnostic of diabetes. Performed By: #### 5 5454-3 ####[facility] LABCLIA [id number] [place] [address] [place] Lipid 1996 panelon 4 Cholesterol [Mass/Vol] 140 mg/dL Normal <200 [facility] Comment on above: Order Comment: Yesenia el Type: BLOOD SPECIMENOrdering Facility: [facility] Address: [address] [place] [address] Result Comment: <200 mg/dL, Desirable 200-239 mg/dL, Borderline high >239 mg/dL, High Performed By: #### 2 4331-1, 3015-3, 55785-7 ####[facility] LABCLIA [id number] [address] [place] Cholesterol in HDL [Mass/Vol] 50 mg/dL Normal >39 [facility] Comment on above: Order Comment: Yesenia el Type: BLOOD SPECIMENOrdering Facility: [facility] Address: [address] [place] [address] Result Comment: 40-5 9 mg/dL, Acceptable >59 mg/dL, High: Negative risk factor for coronary heart disease <40 mg/dL, Low: Positive risk factor for coronary heart disease Performed By: #### 2 4331-1, 3016-3, 41386-6 ####[facility] LABCLIA [id number] [address] [place] Cholesterol in LDL [Mass/Vol] 79 mg/dL Normal <100 [facility] Comment on above: Order Comment: Yesenia gallegos Type: BLOOD SPECIMENOrdering Facility: [facility] Address: [address] [place] [address] Result Comment: <100 mg/dL, Optimal 100-129 mg/dL, Near optimal/above optimal 130-159 mg/dL, Borderline high 160-189 mg/dL, High >189 mg/dL, Very high Secondary prevention optimal LDL Cholesterol levels are recommended to be < 70 mg/dL Performed By: #### 2 4331-1, 3015-3, ####[facility] LABCLIA [id number] [place] [address] [place] Cholesterol in LDL/Cholesterol in HDL [Mass ratio] 1.58 {ratio} Normal <2.54 [facility] Comment on above: Order Comment: Yesenia gallegos Type: BLOOD SPECIMENOrdering Facility: [facility] Address: [address] [place] [address] Result Comment: Mikayla dee: 1. National Cholesterol Education Program ATP III Guideline At-A-Glance Quick Desk Reference: National Heart, Lung, and Blood [place]. National Institutes of Health. 2001: NIH Publication No. 01-3305. 2. An International Atherosclerosis Society position paper: global recommendations for the management of dyslipidemia: executive summary, Atherosclerosis. 2014: 232(2):410-413. Performed By: #### 2 4331-1, 3015-3, ####[facility] LABCLIA [id number] [place] [address] [place] Cholesterol in VLDL [Mass/Vol] 11 mg/dL Normal <30 [facility] Comment on above: Order Comment: Yesenia gallegos Type: BLOOD SPECIMENOrdering Facility: [facility] Address: [address] [place] [address] Performed By: #### 2 4331-1, 3015-3, ####[facility] LABCLIA [id number] [address] [place] [address] [place] Cholesterol non HDL [Mass/Vol] 90 mg/dL Normal <130 [facility] Comment on above: Order Comment: Speci men Type: BLOOD SPECIMENOrdering Facility: [facility] Address: [address] [place] [address] Result Comment: <130 mg/dL, Optimal 130-159 mg/dL, Near optimal/above optimal 160-189 mg/dL, Borderline high 190-219 mg/dL, High >219 mg/dL, Very high Secondary prevention optimal non HDL Cholesterol levels are recommended to be <100 mg/dL Performed By: #### 2 4331-1, 3016-3, 92861-0 ####[facility] LABCLIA [id number] [place] [address] [place] Cholesterol.total/Chol esterol in HDL [Mass ratio] 2.80 {ratio} Normal <5.10 [facility] Comment on above: Order Comment: Speci men Type: BLOOD SPECIMENOrdering Facility: [facility] Address: [address] [place] [address] Performed By: #### 2 4331-1, 3015-3, 52436-5 ####[facility] LABCLIA [id number] [place] [id number] [place] FASTING TIME 13 hrs Normal [facility] Comment on above: Order Comment: Speci men Type: BLOOD SPECIMENOrdering Facility: [facility] Address: [address] [place] [address] Performed By: #### 2 4331-1, 3015-3, 80354-7 ####[facility] LABCLIA [id number] [address] [address] [place] Triglyceride [Mass/Vol] 53 mg/dL Normal <150 [facility] Comment on above: Order Comment: Speci men Type: BLOOD SPECIMENOrdering Facility: [facility] Address: [address] [place] [address] Result Comment: <150 mg/dL, Normal 150-199 mg/dL, Borderline high 200-499 mg/dL, High >499 mg/dL, Very high Performed By: #### 2 4331-1, 3016-3, 22110-0 ####[facility] LABCLIA [id number] [place] [address] [place] TSH SerPl-aCncon 03-28-2024 TSH Qn 1.500 m[IU]/L Normal 0.270-4.200 [facility] Comment on above: Order Comment: Speci men Type: BLOOD SPECIMENOrdering Facility: [facility] Address: [address] [place] [address] Performed By: #### 2 4331-1, 3016-3, 92172-4 ####[facility] LABCLIA [id number] [address] [place] CNPNon 02-[facility]-20[facility] NANCY WELDON ([id number]) 1970 F Date Time Provider Department 02/22/24 [facility] During your visit today, we recorded the following information about you: Aruna Michelle LPN 02/22/2024 10:13 AM Signed Pt. would like lab orders before upcoming appt.. Armani Bhatt PA-C 02/25/2024 1:46 PM Signed Fasting labs ordered MAINOR Faust Laurie Lynn, LPN 02/25/2024 3:03 PM Signed Spoke with pt and information listed below given. Pt verbalizes understanding. Tangela Beltran LPN Allergies As of Date: 02/22/2024 Noted Allergy Reaction VOLTAREN (DICLOFENAC SODIUM) 09/21/2015 2 - Rash Comments: gel Date Reviewed: 01/29/2024 Reviewed by: Maday Morales MA - Fully Assessed Reason for Visit: Orders [681] Primary Visit Diagnosis:Dyslipidemia [E78.5] Other Visit Diagnoses:Vitamin D deficiency [E55.9] IFG (impaired fasting glucose) [R73.01] Order(s):COMPREHENSIVE METABOLIC PANEL [SQCMP] Order #: [id number] FUTURE COMPLETE BLOOD COUNT AND DIFFERENTIAL [SQCBCDIF] Order #: [id number] FUTURE LIPID PANEL BASIC [SQLIPB] Order #: [id number] FUTURE HEMOGLOBIN A1C [NHRFD7V] Order #: [id number] FUTURE THYROID STIMULATING HORMONE [SQTSH] Order #: [id number] FUTURE VITAMIN D 25 HYDROXY [SQVITD] Order #: [id number] FUTURE Prescriptions as of 02/25/2024 - omeprazole (PRILOSEC) 20 mg capsule Take 1 capsule by mouth once daily. - fluticasone furoate (ARNUITY ELLIPTA) 100 mcg/actuation inhaler Inhale 1 Puff as instructed once daily. Inhale one puff once daily. DO NOT CLICK OPEN UNTIL READY FOR DOSE - levonorgestrel (LILETTA) 20.4 mcg/24 hrs (8 yrs) 52 mg IUD 1 Each by INTRAUTERINE route as directed. - meloxicam (MOBIC) 15 mg tablet Take 1 tablet by mouth every afternoon. - loratadine/pseudoephed rine (ALLERGY RELIEF-D, LORATADINE, ORAL) Take by mouth once daily. - jrisnxr-guvavkbxx-pmve al 180 167-65-200 mg tab Take by mouth once daily. - cyanocobalamin, vitamin B-12, (VITAMIN B-12 ORAL) Take by mouth once daily. - FLUTICASONE PROPIONATE (FLONASE NASAL) Use in the nose once daily. Two in each nostril daily - Cholecalciferol, Vitamin D3, 25 mcg (1,000 unit) cap Take 1,000 Units by mouth twice daily. Takes 2,000 units daily - multivitamins(DAILY MULTIPLE TAB) Take one(1) tablet daily. Problem List As Of Date 02/22/2024 Noted Resolved Porokeratosis [Q82.8] 01/02/2012 GERD (gastroesophageal reflux disease) [K21.9] 07/15/2013 Morbid obesity with BMI of 40.0-44.9, adult [E6*07/15/2013 Chronic cough [R05.3] 07/15/2013 Asthma, moderate persistent, well-controlled [J*03/22/2015 Cellulitis of right leg [L03.115] 10/11/2016 Rib pain on left side [R07.81] 10/11/2016 Acute shoulder bursitis [M75.50] 10/11/2016 Moderate persistent asthma without complication* 7 Vitamin D deficiency [E55.9] 03/09/2017 IFG (impaired fasting glucose) [R73.01] 03/09/2017 Well adult exam [Z00.00] 05/10/2018 Osteoarthritis of right knee [M17.11] 05/10/2018 Arthritis, multiple joint involvement [M12.9] 05/10/2018 Gastroesophageal reflux disease [K21.9] 05/14/2019 Dyslipidemia [E78.5] 05/14/2019 Acute bronchitis with asthma [J20.9, J45.909] 05/14/2019 Bilateral hand pain [M79.641, M79.642] 11/25/2019 History of total knee arthroplasty, right [Z96.*08/09/2021 Obesity, Class III, BMI 40-49.9 (morbid obesity*08/09/2021 Acute pain of left shoulder [M25.512] 02/28/2022 Primary osteoarthritis of left shoulder [M19.01*02/28/2022 Fatigue [R53.83] 10/06/2022 Actinic keratosis [L57.0] 10/06/2022 Encounter Status:Closed by TANGELA BELTRAN on 02/25/24 [facility] BRAYDENOVlevy 01-29-2024 CNOV Office Visit ([facility] ) NANCY WELDON ([id number]) 1970 F Date Time Provider Department 01/29/24 11:00 AM ANAHY ALFRED [facility] During your visit today, we recorded the following information about you: Temperature Pulse Respiration Blood pressure 97.2 degrees 72/minute 16/minute 132/88 Weight 128.2 kg Anahy Alfred PA 01/29/2024 11:18 AM Signed This note was created using modulR. Subjective Nancy Weldon is a 53 year old female. HPI 53-year-old female presents for low back pain. Patient has been having left-sided low back pain for the past 3 days. She states that she has been walking a lot more at work and thinks she may have exacerbated her back pain. She also lifts things from time to time. She denies any specific fall or injury. No numbness or tingling in the legs. No pain radiating into the legs. She does have history of lumbar surgery in the past. She states she does not have any hardware in the back. She states occasionally she gets back pain flareups from time to time, but usually not this severe. She denies any loss of bowel or bladder function. No saddle anesthesia. No fever. She has been taking Tylenol [id number] which does take the edge off. She has not taken anything else for her pain. No other complaint. PAST MEDICAL HISTORY Diagnosis Date Allergic rhinitis Arthritis Asthma GERD (gastroesophageal reflux disease) OA (osteoarthritis) of knee Dr. [facility] Vitamin D deficiency PAST SURGICAL HISTORY Procedure Laterality Date APPENDECTOMY 05/07/1979 APPENDECTOMY HX BACK SURGERY HX CARPAL TUNNEL 05/07/2010 bilateral wrist COLONOSCOPY FLX DX W/COLLJ SPEC WHEN PFRMD 12/27/2020 EXCIS LESION, MENISCUS OR CAPSULE, KNEE 05/28/13,08/2014 Dr. [facility], right knee medial meniscus repair HYSTEROSCOPY BX ENDOMETRIUMAND/POLYPC W/WO DANDC 08/16/2023 DANDC w/ polyp resection and Liletta IUD insertion JOINT REPLACEMENT HX Right 08/09/2020 LOW BACK DISK SURGERY 05/07/2001 L4-herniated disc OSTECTOMY CALCANEUS SPUR W/WO PLNTAR FASCIAL RLS left foot TOTAL KNEE REPLACEMENT Right 08/09/2020 Dr. Willis ALLERGIES Voltaren [Diclofenac Sodium] MEDICATIONS omeprazole (PRILOSEC) 20 mg capsule Take 1 capsule by mouth once daily. fluticasone furoate (ARNUITY ELLIPTA) 100 mcg/actuation inhaler Inhale 1 Puff as instructed once daily. Inhale one puff once daily. DO NOT CLICK OPEN UNTIL READY FOR DOSE levonorgestrel (LILETTA) 20.4 mcg/24 hrs (8 yrs) 52 mg IUD 1 Each by INTRAUTERINE route as directed. meloxicam (MOBIC) 15 mg tablet Take 1 tablet by mouth every afternoon. loratadine/pseudoephed rine (ALLERGY RELIEF-D, LORATADINE, ORAL) Take by mouth once daily. divqlqs-wevvjbmef-dejb al 180 167-65-200 mg tab Take by mouth once daily. cyanocobalamin, vitamin B-12, (VITAMIN B-12 ORAL) Take by mouth once daily. FLUTICASONE PROPIONATE (FLONASE NASAL) Use in the nose once daily. Two in each nostril daily Cholecalciferol, Vitamin D3, 25 mcg (1,000 unit) cap Take 1,000 Units by mouth twice daily. Takes 2,000 units daily multivitamins(DAILY MULTIPLE TAB) Take one(1) tablet daily. FAMILY HISTORY Problem Relation Age of Onset Asthma Mother Asthma Father Dementia Father other (heart disease) Father 64 Breast Cancer Maternal Grandmother Diabetes Paternal Grandmother Social History Tobacco Use Smoking status: Never Smokeless tobacco: Former Types: Snuff Tobacco comments: chew tobacco Vaping Use Vaping status: Never Used Substance Use Topics Alcohol use: No Drug use: No Review of Systems Constitutional: Negative for chills and fever. HENT: Negative for congestion, ear pain and sore throat. Respiratory: Negative for cough and shortness of breath. Cardiovascular: Negative for chest pain. Gastrointestinal: Negative for diarrhea and vomiting. Musculoskeletal: Positive for back pain. Objective BP 132/88 Pulse 72 Temp 36.2 ?C (97.2 ?F) Resp 16 Wt 128.2 kg (282 lb 10.1 oz) LMP 06/09/2023 (Within Weeks) SpO2 95% BMI 45.62 kg/m? Physical Exam Vitals and nursing note reviewed. Constitutional: General: She is not in acute distress. Appearance: Normal appearance. She is not toxic-appearing. Cardiovascular: Rate and Rhythm: Normal rate and regular rhythm. Pulmonary: Effort: Pulmonary effort is normal. Breath sounds: Normal breath sounds. Musculoskeletal: Lumbar back: Spasms and tenderness present. No bony tenderness. Negative right straight leg raise test and negative left straight leg raise test. Comments: Tenderness over left-sided lumbar paraspinal muscles. No midline tenderness. Negative seated straight leg raise. Skin: General: Skin is warm and dry. Neurological: Mental Status: She is alert. Assessment and Plan ASSESSMENT/PLAN: 1. Lumbar pain - ICD9: 724.2, ICD10: M54.50 - XR LUMBAR G (more content not included)... Normal [facility] XR LUMBAR 3V AP/LAT/L5-S1on 01-29-2024 XR LUMBAR 3V AP/LAT/L5-S1 * * *Final Report* * * DATE OF EXAM: Jan 29 2024 11:05AM WOX [id number] - XR LUMBAR 3V AP/LAT/L5-S1 / PROCEDURE REASON: Lumbar pain * * * * Physician Interpretation * * * * TITLE: XR LUMBAR 3V AP/LAT/L5-S1 CLINICAL INDICATION: Back pain TECHNIQUE: 3 view radiographic study of the lumbar spine COMPARISON: None FINDINGS: For the purposes of this report, L4/L5 shall be at the level of the iliac crests. Preservation of vertebral body heights. Mild disc space narrowing at L3/L4 with small marginal osteophyte formation. Moderate disc space narrowing at L4/L5 with small marginal osteophyte formation. Moderate disc space narrowing at L5/S1 with small marginal osteophyte formation. Facet joint arthrosis at L3/L4 through the lumbosacral junction. No spondylolisthesis. Intrauterine device projects over the pelvis. IMPRESSION: Degenerative changes as described. Retail Management Keyholder: NITIN Transcribe Date/Time: Jan 29 2024 11:07A Dictated by : STEPHANE FLORES MD This examination was interpreted and the report reviewed and electronically signed by: STEPHANE FLORES MD on Jan 29 2024 11:10AM EST [id number] Normal [facility] XR Lumbar spine 3 Viewson Radiology Study observation (narrative) [facility] IMPRESSION: Degenerative changes as described. Retail Management Keyholder: NITIN Transcribe Date/Time: Jan 29 2024 11:07A Dictated by : STEPHANE FLORES MD This examination was interpreted and the report reviewed and electronically signed by: STEPHANE FLORES MD on Jan 29 2024 11:10AM [facility] DIVISION OF RADIOLOGY * * *Final Report* * * DATE OF EXAM: Jan 29 2024 11:05AM WOX [id number] - XR LUMBAR 3V AP/LAT/L5-S1 / PROCEDURE REASON: Lumbar pain * * * * Physician Interpretation * * * * TITLE: XR LUMBAR 3V AP/LAT/L5-S1 CLINICAL INDICATION: Back pain TECHNIQUE: 3 view radiographic study of the lumbar spine COMPARISON: None FINDINGS: For the purposes of this report, L4/L5 shall be at the level of the iliac crests. Preservation of vertebral body heights. Mild disc space narrowing at L3/L4 with small marginal osteophyte formation. Moderate disc space narrowing at L4/L5 with small marginal osteophyte formation. Moderate disc space narrowing at L5/S1 with small marginal osteophyte formation. Facet joint arthrosis at L3/L4 through the lumbosacral junction. No spondylolisthesis. Intrauterine device projects over the pelvis. DIVISION OF RADIOLOGY Provider, [facility] - 01/29/2024 * * *Final Report* * * DATE OF EXAM: Jan 29 2024 11:05AM WOX [id number] - XR LUMBAR 3V AP/LAT/L5-S1 / PROCEDURE REASON: Lumbar pain * * * * Physician Interpretation * * * * TITLE: XR LUMBAR 3V AP/LAT/L5-S1 CLINICAL INDICATION: Back pain TECHNIQUE: 3 view radiographic study of the lumbar spine COMPARISON: None FINDINGS: For the purposes of this report, L4/L5 shall be at the level of the iliac crests. Preservation of vertebral body heights. Mild disc space narrowing at L3/L4 with small marginal osteophyte formation. Moderate disc space narrowing at L4/L5 with small marginal osteophyte formation. Moderate disc space narrowing at L5/S1 with small marginal osteophyte formation. Facet joint arthrosis at L3/L4 through the lumbosacral junction. No spondylolisthesis. Intrauterine device projects over the pelvis. IMPRESSION IMPRESSION: Degenerative changes as described. Retail Management Keyholder: NITIN Transcribe Date/Time: Jan 29 2024 11:07A Dictated by : STEPHANE FLORES MD This examination was interpreted and the report reviewed and electronically signed by: STEPHANE FLORES MD on Jan 29 2024 11:10AM EST [facility] XR Lumbar spine 3 ViewsOrder ed By: [facility] Provider on 01-29-2024 [facility] Serum or plasma choriogonado tropin detectionOrdered By: Horace Bella on 08-16-2023 HCG ( test) Ql Negative [facility] US Pelvis transvaginalon Radiology Result ACTIONABLE Abnormal [facility] XR CLAVICLE 2V LEFTon 2021 [facility] XR Clavicle - left 2 Viewson 02-22-2022 IMPRESSION: No acute radiographic abnormalities seen in the left clavicle. Degenerative changes in the left shoulder as described above. Retail Management Keyholder: PSCB Transcribe Date/Time: Feb 22 2022 4:50P Dictated by : DONIS OLMEDO MD This examination was interpreted and the report reviewed and electronically signed by: DONIS OLMEDO MD on Feb 22 2022 4:52PM EST DIVISION OF RADIOLOGY * * *Final Report* * * DATE OF EXAM: Feb 22 2022 4:47PM WOX [id number] - XR CLAVICLE 2V LT / PROCEDURE REASON: Pain * * * * Physician Interpretation * * * * EXAM TITLE: XR CLAVICLE 2V LT EXAM DATE/TIME: 02/22/2022 4:47 PM COMPARISON: None. CLINICAL INDICATION/HISTORY: Left clavicle pain. TECHNIQUE: AP and axial views of the left clavicle are presented FINDINGS: No acute fracture seen in the left clavicle. There is acromioclavicular joint space narrowing, with associated osteophyte formation. There appear to be supraspinatus tendon calcifications. There is no significant soft tissue swelling. DIVISION OF RADIOLOGY Provider, [facility] - 02/22/2022 * * *Final Report* * * DATE OF EXAM: Feb 22 2022 4:47PM WOX [id number] - XR CLAVICLE 2V LT / PROCEDURE REASON: Pain * * * * Physician Interpretation * * * * EXAM TITLE: XR CLAVICLE 2V LT EXAM DATE/TIME: 02/22/2022 4:47 PM COMPARISON: None. CLINICAL INDICATION/HISTORY: Left clavicle pain. TECHNIQUE: AP and axial views of the left clavicle are presented FINDINGS: No acute fracture seen in the left clavicle. There is acromioclavicular joint space narrowing, with associated osteophyte formation. There appear to be supraspinatus tendon calcifications. There is no significant soft tissue swelling. IMPRESSION IMPRESSION: No acute radiographic abnormalities seen in the left clavicle. Degenerative changes in the left shoulder as described above. Retail Management Keyholder: NITIN Transcribe Date/Time: Feb 22 2022 4:50P Dictated by : DONIS OLMEDO MD This examination was interpreted and the report reviewed and electronically signed by: DONIS OLMEDO MD on Feb 22 2022 4:52PM EST [facility] Radiology Study observation (narrative) [facility] XR Clavicle - left 2 ViewsOr dered By: [facility] Provider on 02-22-2022 [facility] Vital Signs Date Time Vital Sign Value Performing Clinician Faci lity 09-22-2024 14:53-0400 Body mass index (BMI) [Ratio] 41.67 kg/m2 Jonathan Duarte APRN.RN NEUROSURGICAL Work Phone: [facility] 09-22-2024 14:53-0400 Body temperature 97.9 [degF] Jonathan Duarte APRN.RN NEUROSURGICAL Work Phone: [facility] 09-22-2024 14:53-0400 Body weight 117.6 kg Jonathan Duarte APRN.RN NEUROSURGICAL Work Phone: [facility] 09-22-2024 14:53-0400 Diastolic blood pressure 74 mm[Hg] Jonathan Duarte APRN.RN NEUROSURGICAL Work Phone: [facility] 09-22-2024 14:53-0400 Heart rate 74 /min Jonathan Duarte APRN.RN NEUROSURGICAL Work Phone: [facility] 09-22-2024 14:53-0400 Respiratory rate 18 /min Jonathan Duarte APRN.RN NEUROSURGICAL Work Phone: [facility] 09-22-2024 14:53-0400 SaO2% (BldA) [Mass fraction] 97 % Jonathan Duarte SILVER BUFFER.RN NEUROSURGICAL Work Phone: [facility] 09-22-2024 14:53-0400 Systolic blood pressure 124 mm[Hg] Jonathan Duarte APRN.RN NEUROSURGICAL Work Phone: [facility] 04-14-2024 11:40-0500 Body height 168 cm Cam Tripp DO Work Phone: [facility] 04-14-2024 11:40-0500 Body mass index (BMI) [Ratio] 43.58 kg/m2 Cam Tripp DO Work Phone: [facility] 04-14-2024 11:40-0500 Body temperature 97.2 [degF] Cam Tripp DO Work Phone: [facility] 04-14-2024 11:40-0500 Body weight 123 kg Cam Tripp DO Work Phone: [facility] 04-14-2024 11:40-0500 Diastolic blood pressure 60 mm[Hg] Cam Tripp DO Work Phone: [facility] 04-14-2024 11:40-0500 Heart rate 76 /min Cam Tripp DO Work Phone: [facility] 04-14-2024 11:40-0500 Respiratory rate 16 /min Cam Tripp DO Work Phone: [facility] 04-14-2024 11:40-0500 Systolic blood pressure 110 mm[Hg] Cam Tripp DO Work Phone: [facility] 01-29-2024 10:53-0400 Body mass index (BMI) [Ratio] 45.62 kg/m2 Krislyn Aberegg PA Work Phone: [facility] 01-29-2024 10:53-0400 Body temperature 97.2 [degF] Krislyn Aberegg PA Work Phone: [facility] 01-29-2024 10:53-0400 Body weight 128.2 kg Krislyn Aberegg PA Work Phone: [facility] 01-29-2024 10:53-0400 Diastolic blood pressure 88 mm[Hg] Krislyn Aberegg PA Work Phone: [facility] 01-29-2024 10:53-0400 Heart rate 72 /min Krislyn Aberegg PA Work Phone: [facility] 01-29-2024 10:53-0400 Respiratory rate 16 /min Krislyn Aberegg PA Work Phone: [facility] 01-29-2024 10:53-0400 SaO2% (BldA) [Mass fraction] 95 % Krislyn Aberegg PA Work Phone: [facility] 01-29-2024 10:53-0400 Systolic blood pressure 132 mm[Hg] Krislyn Aberegg PA Work Phone: [facility] 11-15-2023 11:18-0400 Body mass index (BMI) [Ratio] 46.79 kg/m2 Lara Mehta SILVER BUFFER.RN NEUROSURGICAL Work Phone: [facility] 11-15-2023 11:18-0400 Body temperature 97.7 [degF] Lara Mehta SILVER BUFFER.RN NEUROSURGICAL Work Phone: [facility] 11-15-2023 11:18-0400 Body weight 131.5 kg Lara Mehta SILVER BUFFER.RN NEUROSURGICAL Work Phone: [facility] 11-15-2023 11:18-0400 Diastolic blood pressure 72 mm[Hg] Lara Mehta SILVER BUFFER.RN NEUROSURGICAL Work Phone: [facility] 11-15-2023 11:18-0400 Heart rate 66 /min Lara Mehta SILVER BUFFER.RN NEUROSURGICAL Work Phone: [facility] 11-15-2023 11:18-0400 Respiratory rate 16 /min Lara Mehta SILVER BUFFER.RN NEUROSURGICAL Work Phone: [facility] 11-15-2023 11:18-0400 SaO2% (BldA) [Mass fraction] 97 % Lara Mehta SILVER BUFFER.RN NEUROSURGICAL Work Phone: [facility] 11-15-2023 11:18-0400 Systolic blood pressure 122 mm[Hg] Lara Mehta SILVER BUFFER.RN NEUROSURGICAL Work Phone: [facility] 08-16-2023 15:48-0400 Body temperature 97.1 [degF] [facility] 08-16-2023 15:48-0400 Diastolic blood pressure 64 mm[Hg] [facility] 08-16-2023 15:48-0400 Heart rate 59 /min [facility] 08-16-2023 15:48-0400 Respiratory rate 16 /min [facility] 08-16-2023 15:48-0400 SaO2% (BldA) [Mass fraction] 95 % [facility] 08-16-2023 15:48-0400 Systolic blood pressure 127 mm[Hg] [facility] 08-16-2023 10:40-0400 Body height 167.64 cm [facility] 08-16-2023 10:40-0400 Body mass index (BMI) [Ratio] 46.7 kg/m2 [facility] 08-16-2023 10:40-0400 Body weight 131.4 kg [facility] 06-26-2023 08:45-0500 Body weight 130.09 kg Dylan Thomas MD Work Phone: [facility] 06-26-2023 08:45-0500 Diastolic blood pressure 58 mm[Hg] Dylan Thomas MD Work Phone: [facility] 06-26-2023 08:45-0500 Systolic blood pressure 100 mm[Hg] Dylan Thomas MD Work Phone: [facility] 05-20-2023 09:52-0500 Body temperature 97.2 [degF] Spring Melo APRN.RN NEUROSURGICAL Work Phone: [facility] 05-20-2023 09:52-0500 Body weight 127.46 kg Spring Melo APRN.RN NEUROSURGICAL Work Phone: [facility] 05-20-2023 09:52-0500 Diastolic blood pressure 80 mm[Hg] Spring Melo APRN.RN NEUROSURGICAL Work Phone: [facility] 05-20-2023 09:52-0500 Heart rate 92 /min Spring Melo APRN.RN NEUROSURGICAL Work Phone: [facility] 05-20-2023 09:52-0500 Respiratory rate 16 /min Spring Melo APRN.RN NEUROSURGICAL Work Phone: [facility] 05-20-2023 09:52-0500 SaO2% (BldA) [Mass fraction] 96 % Spring Melo APRN.RN NEUROSURGICAL Work Phone: [facility] 05-20-2023 09:52-0500 Systolic blood pressure 132 mm[Hg] Spring Melo SILVER BUFFER.RN NEUROSURGICAL Work Phone: [facility] 04-10-2023 10:46-0500 Body height 167.6 cm Cam Tripp DO Work Phone: [facility] 04-10-2023 10:46-0500 Body temperature 97 [degF] Acm Tripp DO Work Phone: [facility] 04-10-2023 10:46-0500 Body weight 128.37 kg Cam Tripp DO Work Phone: [facility] 04-10-2023 10:46-0500 Diastolic blood pressure 74 mm[Hg] Cam Tripp DO Work Phone: [facility] 04-10-2023 10:46-0500 Heart rate 76 /min Cam Tripp DO Work Phone: [facility] 04-10-2023 10:46-0500 Respiratory rate 14 /min Cam Tripp DO Work Phone: [facility] 04-10-2023 10:46-0500 SaO2% (BldA) [Mass fraction] 96 % Cam Tripp DO Work Phone: [facility] 04-10-2023 10:46-0500 Systolic blood pressure 124 mm[Hg] Cam Tripp DO Work Phone: [facility] 02-08-2023 09:21-0400 Body weight 131.09 kg Ann Rivera SILVER BUFFER.RN NEUROSURGICAL Work Phone: [facility] 02-08-2023 09:21-0400 Diastolic blood pressure 74 mm[Hg] Ann Nicole SILVER BUFFER.RN NEUROSURGICAL Work Phone: [facility] 02-08-2023 09:21-0400 Systolic blood pressure 114 mm[Hg] Ann [place] SILVER BUFFER.RN NEUROSURGICAL Work Phone: [facility] 10-06-2022 13:19-0400 Diastolic blood pressure 82 mm[Hg] Cam Tripp DO Work Phone: [facility] 10-06-2022 13:19-0400 Systolic blood pressure 122 mm[Hg] Cam Tripp DO Work Phone: [facility] 10-06-2022 12:49-0400 Body temperature 96.4 [degF] Cam Tripp DO Work Phone: [facility] 10-06-2022 12:49-0400 Body weight 128.37 kg Cam Tripp DO Work Phone: [facility] 10-06-2022 12:49-0400 Heart rate 64 /min Cam Tripp DO Work Phone: [facility] 10-06-2022 12:49-0400 Respiratory rate 16 /min Cam Tripp DO Work Phone: [facility] 02-22-2022 15:57-0400 Body temperature 97.7 [degF] Spring Melo APRN.RN NEUROSURGICAL Work Phone: [facility] 02-22-2022 15:57-0400 Body weight 130.82 kg Spring Melo APRN.RN NEUROSURGICAL Work Phone: [facility] 02-22-2022 15:57-0400 Diastolic blood pressure 80 mm[Hg] Spring Melo APRN.RN NEUROSURGICAL Work Phone: [facility] 02-22-2022 15:57-0400 Heart rate 78 /min Spring Melo APRN.RN NEUROSURGICAL Work Phone: [facility] 02-22-2022 15:57-0400 Respiratory rate 21 /min Spring Melo APRN.RN NEUROSURGICAL Work Phone: [facility] 02-22-2022 15:57-0400 SaO2% (BldA) [Mass fraction] 98 % Spring Melo SILVER BUFFER.RN NEUROSURGICAL Work Phone: [facility] 02-22-2022 15:57-0400 Systolic blood pressure 132 mm[Hg] Spring Melo SILVER BUFFER.RN NEUROSURGICAL Work Phone: [facility] 02-21-2022 11:20-0400 Body height 167.6 cm Ann Nicole SILVER BUFFER.RN NEUROSURGICAL Work Phone: [facility] 02-21-2022 11:20-0400 Body weight 128.37 kg Ann [place] SILVER BUFFER.RN NEUROSURGICAL Work Phone: [facility] 02-21-2022 11:20-0400 Diastolic blood pressure 78 mm[Hg] Ann [place] SILVER BUFFER.RN NEUROSURGICAL Work Phone: [facility] 02-21-2022 11:20-0400 Systolic blood pressure 130 mm[Hg] Ann [place] SILVER BUFFER.RN NEUROSURGICAL Work Phone: [facility] 02-06-2022 16:02-0400 Body height 167.6 cm Ann Nicole SILVER BUFFER.RN NEUROSURGICAL Work Phone: [facility] 02-06-2022 16:02-0400 Body weight 126.55 kg Ann Nicole SILVER BUFFER.RN NEUROSURGICAL Work Phone: [facility] 02-06-2022 16:02-0400 Diastolic blood pressure 80 mm[Hg] Ann [place] SILVER BUFFER.RN NEUROSURGICAL Work Phone: [facility] 02-06-2022 16:02-0400 Heart rate 80 /min Ann Nicole SILVER BUFFER.RN NEUROSURGICAL Work Phone: [facility] 02-06-2022 16:02-0400 Respiratory rate 14 /min Ann Nicole SILVER BUFFER.RN NEUROSURGICAL Work Phone: [facility] 02-06-2022 16:02-0400 SaO2% (BldA) [Mass fraction] 96 % Ann Nicole SILVER BUFFER.RN NEUROSURGICAL Work Phone: [facility] 02-06-2022 16:02-0400 Systolic blood pressure 138 mm[Hg] Ann [place] SILVER BUFFER.RN NEUROSURGICAL Work Phone: [facility] 08-09-2021 10:45-0400 Body temperature 97 [degF] Cam Tripp DO Work Phone: [facility] 08-09-2021 10:45-0400 Body weight 125.65 kg Cam Tripp DO Work Phone: [facility] 08-09-2021 10:45-0400 Diastolic blood pressure 60 mm[Hg] Cam Tripp DO Work Phone: [facility] 08-09-2021 10:45-0400 Heart rate 64 /min Cam Tripp DO Work Phone: [facility] 08-09-2021 10:45-0400 Respiratory rate 16 /min Cam Tripp DO Work Phone: [facility] 08-09-2021 10:45-0400 Systolic blood pressure 100 mm[Hg] Cam Tripp DO Work Phone: [facility] Encounters Encounter Date Encounter Type Care Provider Facility Start: 12-16-2024 ambulatory Cam Tripp Facilit y:[facility] Start: 11-28-2024 End: 12-01-2024 Telephone encounter Cam Quiroz Tripp DO Work Phone: [facility] Comment on above: Orders Start: 10-02-2024 End: 10-02-2024 Follow-up encounter Marleen Trejo SILVER BUFFER.RN NEUROSURGICAL Work Phone: [facility] Start: 09-26-2024 End: 09-26-2024 ambulatory MARLEEN TREJO Facility:[facility] Start: 09-22-2024 End: 09-22-2024 Subsequent hospital visit by physician [facility] Work Phone: Radiology Comment on above: Acute cough [R05.1] Start: 09-22-2024 End: 09-22-2024 Patient encounter procedure Jonathan Duarte APRN.RN NEUROSURGICAL Work Phone: [facility] Comment on above: Sinobronchitis (Prim trudy Dx); Abnormal x-ray; Acute cough Start: 09-22-2024 End: 09-22-2024 ambulatory CAM TRIPP Facility:[facility] Start: 07-08-2024 End: 07-09-2024 Telephone encounter Cam Tripp DO Work Phone: [facility] Comment on above: Patient Question Start: 04-14-2024 End: 04-14-2024 ambulatory CAM TRIPP Facility:[facility] Start: 04-14-2024 End: 04-14-2024 Patient encounter procedure Cam Ovalleson Work Phone: [facility] Comment on above: Well adult exam (Neema olivia Dx); Dyslipidemia; Vitamin D deficiency; IFG (impaired fasting glucose); Arthritis, multiple joint involvement; Asthma, moderate persistent, well-controlled; Obesity, Class III, BMI 40-49.9 (morbid obesity) ([facility]); Gastroesophageal reflux disease without esophagitis; Fatigue, unspecified type Start: 04-14-2024 End: 04-14-2024 Patient encounter status Cam Ovalleson DO Work Phone: [facility] Start: 03-28-2024 End: 03-28-2024 ambulatory ARMANI BHATT Facility:[facility] Start: 03-19-2024 End: 03-19-2024 Refill Cam Tripp DO Work Phone: [facility] Comment on above: Refill Request Start: 02-22-2024 End: 02-25-2024 Telephone encounter Cam Tripp DO Work Phone: [facility] Comment on above: Orders Start: 01-29-2024 End: 01-29-2024 ambulatory ANAHY ALFRED Facility:[facility] Start: 01-29-2024 End: 01-29-2024 Patient encounter procedure Anahy WEBSTER Work Phone: [facility] Comment on above: Lumbar pain (Primary Dx) Start: 01-29-2024 End: 01-29-2024 Subsequent hospital visit by physician Xr [facility] Work Phone: Radiology Comment on above: Lumbar pain [M54.50] Start: 01-14-2024 End: 01-14-2024 Refill Cam Tripp DO Work Phone: [facility] Comment on above: Refill Request Start: 11-15-2023 End: 11-15-2023 Patient encounter procedure Lara Mehta SILVER BUFFER.RN NEUROSURGICAL Work Phone: [facility] Comment on above: Wound of left lower extremity, initial encounter (Primary Dx) Start: 11-13-2023 Telephone encounter Yakelin willard SILVER BUFFER.RN NEUROSURGICAL Work Phone: [facility] Comment on above: Orders Start: 09-17-2023 Telephone encounter Cam wayne DO Work Phone: [facility] Comment on above: Medication Problem Start: 08-20-2023 Telephone encounter Magui Scott MD Work Phone: OB/Gynecology Start: 08-18-2023 ambulatory Chantale Satnillan RN NURS [facility] Comment on above: Medication Problem Start: 08-17-2023 Telephone encounter Cam wayne DO Work Phone: [facility] Comment on above: Medication Problem Start: 08-16-2023 End: 08-16-2023 ambulatory Magui Scott MD Work Phone: [facility] Work Phone: Comment on above: PMB (postmenopausal bleeding) (Primary Dx); Endometrium, polyp Start: 08-16-2023 Patient encounter procedure Magui Scott MD Work Phone: [facility] Start: 08-16-2023 End: 08-16-2023 Admission to same day surgery center [facility] Start: 07-20-2023 Admission to [facility] Provider OB/Gynecology Comment on above: surgery confirmation Start: 07-20-2023 E-mail encounter fro tatyana caregiver [facility] Provider [facility] Start: 07-10-2023 ambulatory [facility] Provider INITIAL DE PARTMENT Comment on above: Actionable Imaging R esult Notification Patient Outreach Start: 07-10-2023 E-mail encounter fro tatyana caregiver [facility] Provider [facility] Start: 07-09-2023 End: 07-09-2023 Subsequent hospital visit by physician [facility] Work Phone: Radiology Comment on above: Postmenopausal bleed ing [N95.0] Start: 07-02-2023 ambulatory Dylan schuster MD Work Phone: OB/Gynecology Comment on above: results Start: 07-02-2023 E-mail encounter fro tatyana caregiver Dylan Thomas MD [facility] Start: 06-26-2023 End: 06-26-2023 Patient encounter procedure Dylan Thomas MD Work Phone: OB/Gynecology Comment on above: Postmenopausal bleed ing (Primary Dx) Start: 05-20-2023 End: 05-20-2023 Patient encounter procedure Spring Melo APRN.CNP Work Phone: [facility] Comment on above: Rhinosinusitis (Prim trudy Dx) Start: 04-10-2023 End: 04-10-2023 Patient encounter procedure Cam Tirpp DO Work Phone: [facility] Comment on above: Well adult exam (Neema olivia Dx); Asthma, moderate persistent, well-controlled; Need for influenza vaccination; Need for pneumococcal 20-valent conjugate vaccination; Arthritis, multiple joint involvement; IFG (impaired fasting glucose); Dyslipidemia; Obesity, Class III, BMI 40-49.9 (morbid obesity) ([facility]) Start: 04-10-2023 End: 04-10-2023 Patient encounter status Cam Tripp DO Work Phone: [facility] Work Phone: Start: 02-08-2023 End: 02-08-2023 Patient encounter procedure Ann Nicole SILVER BUFFER.RN NEUROSURGICAL Work Phone: OB/Gynecology Comment on above: Encounter for gyneco logical examination (general) (routine) without abnormal findings (Primary Dx); Pap smear for cervical cancer screening Start: 02-08-2023 End: 02-08-2023 Patient encounter status Ann Rivera SILVER BUFFER.RN NEUROSURGICAL Work Phone: [facility] Start: 01-02-2023 Refill Cam willard DO Work Phone: [facility] Comment on above: Refill Request Start: 12-13-2022 Chart abstracting Cam brantley DO Work Phone: [facility] Start: 12-12-2022 End: 12-12-2022 ambulatory [facility] Work Phone: Start: 12-12-2022 End: 12-12-2022 Patient encounter procedure [facility] Work Phone: Start: 11-24-2022 Telephone encounter Cam wayne DO Work Phone: [facility] Start: 11-20-2022 Telephone encounter Cam wayne DO Work Phone: [facility] Comment on above: fax orders to [facility] Start: 10-06-2022 End: 10-06-2022 Patient encounter procedure Cam Tripp DO Work Phone: [facility] Comment on above: IFG (impaired fastin g glucose) (Primary Dx); Screening for osteoporosis; Encounter for screening mammogram for malignant neoplasm of breast; Asthma, moderate persistent, well-controlled; Dyslipidemia; Arthritis, multiple joint involvement; Obesity, Class III, BMI 40-49.9 (morbid obesity) ([facility]); Well adult exam; Vitamin D deficiency; Fatigue, unspecified type; Actinic keratosis Start: 10-06-2022 End: 10-06-2022 Patient encounter status Cam Tripp DO Work Phone: [facility] Start: 02-22-2022 End: 02-22-2022 Subsequent hospital visit by physician [facility] Work Phone: Radiology Comment on above: Pain [R52] Start: 02-22-2022 End: 02-22-2022 Patient encounter procedure Spring Melo SILVER BUFFER.RN NEUROSURGICAL Work Phone: [facility] Comment on above: Pain (Primary Dx) Start: 02-21-2022 End: 02-21-2022 Patient encounter procedure Ann Rivera SILVER BUFFER.RN NEUROSURGICAL Work Phone: OB/Gynecology Comment on above: Non-atypical endomet rial cells of cervix on Pap smear (Primary Dx) Start: 02-17-2022 Telephone encounter Ann lee SILVER BUFFER.RN NEUROSURGICAL Work Phone: OB/Gynecology Comment on above: Results Start: 02-06-2022 End: 02-06-2022 Patient encounter procedure Ann Rivera SILVER BUFFER.RN NEUROSURGICAL Work Phone: OB/Gynecology Comment on above: Encounter for gyneco logical examination (general) (routine) without abnormal findings (Primary Dx); Screening for malignant neoplasm of cervix; Encounter for screening for human papillomavirus (HPV) Start: 02-06-2022 End: 02-06-2022 Patient encounter status Ann Rivera SILVER BUFFER.RN NEUROSURGICAL Work Phone: OB/Gynecology Start: 02-02-2022 End: 02-02-2022 Nursing evaluation of patient and report Mi Nurse Work Phone: [facility] [place] Comment on above: Need for vaccination (Primary Dx) Start: 12-06-2021 End: 12-06-2021 Patient encounter procedure [facility] Start: 11-14-2021 Telephone encounter [facility] Comment on above: Orders Start: 11-03-2021 Refill Cam willard DO Work Phone: [facility] Comment on above: Refill Request Start: 08-09-2021 End: 08-09-2021 Patient encounter procedure Cam Tripp DO Work Phone: [facility] Comment on above: IFG (impaired fastin g glucose) (Primary Dx); Dyslipidemia; Asthma, moderate persistent, well-controlled; Arthritis, multiple joint involvement; Encounter for hepatitis C screening test for low risk patient; History of total knee arthroplasty, right; Obesity, Class III, BMI 40-49.9 (morbid obesity) (HCC) Start: 07-19-2021 End: 07-19-2021 Patient encounter procedure [facility] Start: 02-08-2021 Patient encounter status Yan Tripp DO Work Phone: [facility] Work Phone: Procedures Date Procedure Procedure Detail Performing Clinician Start: 09-26-2024 Adult depression scr eening assessment Marleen Trejo SILVER BUFFER.RN NEUROSURGICAL Work Phone: Start: 09-22-2024 Radiologic exam ches t 2 views Jonathan Duarte SILVER BUFFER.RN NEUROSURGICAL Work Phone: Start: 03-28-2024 Lipid 1995 panel - S julian or Plasma Cam Nationrison DO Work Phone: Start: 01-29-2024 Radex spine lumbosac ral 2/3 views Anahy Alfred PA Work Phone: Start: 08-16-2023 Hysteroscopy,D&C Sym phion (Not Applicable) Start: 07-09-2023 transvaginal Dylan Thomas MD Work Phone: Start: 04-10-2023 INFLUENZA VACCINE, A GE 6 MO - 64 YR, QUADRIVALENT (AFLURIA, FLULAVAL, FLUZONE) Cam Tripp DO Work Phone: Start: 03-22-2023 Lipid 1995 panel - S julian or Plasma Cam Nationrison DO Work Phone: Start: 12-12-2022 Dual energy X-ray absorptiometry Start: 12-12-2022 End: 12-12-2022 Mammography Cam Nationrison DO Work Phone: Start: 02-22-2022 Radex clavicle complete Spring Melo SILVER BUFFER.RN NEUROSURGICAL Work Phone: Start: 02-11-2022 Lipid 1995 panel - S julian or Plasma Ann Rivera SILVER BUFFER.RN NEUROSURGICAL Work Phone: Start: 02-02-2022 [email or web address] COVI D-19 BIVALENT BOOSTER VACCINE, AGE 12+ YR Yakelin Taylor SILVER BUFFER.RN NEUROSURGICAL Work Phone: Start: 12-06-2021 End: 12-06-2021 Screening mammography Start: 07-19-2021 Mammography Start: 12-27-2020 Colonoscopy Cam brantley DO Work Phone: Start: 12-01-2020 Mammography Cam brantley DO Work Phone: Start: 08-11-2020 Adult depression scr eening assessment Cam Tripp DO Work Phone: Plan of Treatment Date Care Activity Detail Author Start: 12-27-2030 Colonoscopy COLONOSCOPY [facility] Start: 12-27-2030 COLORECTAL CANCER SCREENING COLORECTAL CANCER SCREENING [facility] Start: 12-27-2030 Screening for malign ant neoplasm of colon [facility] Start: 03-28-2029 Lipid panel Lipid Screening [facility] Start: 03-22-2028 Lipid 1996 panel - Serum or Plasma Lipid Screening [facility] Start: 03-22-2028 Lipid panel Lipid Screening [facility] Start: 02-09-2028 HPV Testing HPV Testing [facility] Start: 02-09-2028 Pap Testing Pap Testing [facility] Start: 02-09-2028 Screening for malign ant neoplasm of cervix [facility] Start: 10-30-2027 Urine microalbumin profile [facility] Start: 03-28-2027 Diabetes Screening Diabetes Screenin [facility] Start: 02-11-2027 Lipid 1996 panel - Serum or Plasma Lipid Screening [facility] Start: 02-11-2027 LIPID SCREEN LIPID SCREEN [facility] Start: 02-06-2027 HPV TESTING HPV TESTING [facility] Start: 02-06-2027 PAP TESTING PAP TESTING [facility] Start: 07-31-2026 Diabetes Screening Diabetes Screenin g [facility] Start: 03-22-2026 Diabetes Screening Diabetes Screenin [facility] Start: 01-22-2026 LIPID SCREEN LIPID SCREEN [facility] Start: 01-17-2026 HPV TESTING HPV TESTING [facility] Start: 01-17-2026 PAP TESTING PAP TESTING [facility] Start: 09-26-2025 Annual PCP Team Braiding Operator pepe Disease Visit Annual PCP Team Chronic Disease Visit [facility] Start: 09-26-2025 Anxiety Screening Anxiety Screening [facility] Start: 09-26-2025 Depression Screening Depression Scre ening [facility] Start: 04-21-2025 End: 04-21-2025 Patient encounter procedure 04/21/2025 12:00 PM EST Office Visit [facility] [address] [place] [address] Cam Tripp DO [address] [facility] [address] Wellness [facility] Comment on above: Wellness Start: 04-14-2025 Annual PCP Team Braiding Operator pepe Disease Visit Annual PCP Team Chronic Disease Visit [facility] Start: 04-14-2025 Covid-19 Vaccine () Covid-19 Vaccine () [facility] Comment on above: Postponed from 01/05 (Declined at this time) Start: 02-11-2025 DIABETES SCREEN DIABETES SCREEN [facility] Start: 02-11-2025 Diabetes Screening Diabetes Screenin g [facility] Start: 01-15-2025 End: 01-15-2025 Patient encounter procedure 01/15/2025 3:30 PM EDT Office Visit OB/Gynecology [address] [place] [address] Ann Rivera APRN.RN NEUROSURGICAL [address] [place] [address] Annual OB/Gynecology Comment on above: Annual Start: 01-05-2025 Influenza vaccination Influenza Vacc ine (#1) [facility] Start: 12-13-2024 Screening for malign ant neoplasm of breast Mammogram Screening [facility] Start: 09-26-2024 End: 09-26-2024 Patient encounter procedure 09/26/2024 3:00 PM EDT Office Visit [facility] [address] [place] [address] Marleen Trejo SILVER BUFFER.RN NEUROSURGICAL [address] [facility] [place] [address] urgent care follow up 09/22/24 [facility] Comment on above: urgent care follow u p 09/22/24 Start: 07-23-2024 DIABETES SCREEN DIABETES SCREEN [facility] Start: 04-14-2024 End: 04-14-2024 Patient encounter procedure 04/14/2024 12:20 PM EST Office Visit [facility] [address] [place] [address] Cam Tripp DO [address] [place] [address] yearly follow up [facility] Comment on above: yearly follow up Start: 04-10-2024 Annual PCP Team Braiding Operator pepe Disease Visit Annual PCP Team Chronic Disease Visit [facility] Start: 03-28-2024 End: 03-28-2024 ambulatory 03/28/2024 7:15 AM EST Results Only [facility] Draw Station [address] [place] [address] [facility] Start: 02-25-2024 End: 05-26-2024 25-hydroxyvitamin D3 [Mass/volume] in Serum or Plasma VITAMIN D 25 HYDROXY Lab Routine Vitamin D deficiency Expected: 02/25/2024, Expires: 05/26/2024 [facility] Comment on above: Expected: 02/25/2024 , Expires: 05/26/2024 Start: 02-25-2024 End: 05-26-2024 CBC W Auto Differential panel - Blood COMPLETE BLOOD COUNT AND DIFFERENTIAL Lab Routine Vitamin D deficiency IFG (impaired fasting glucose) Expected: 02/25/2024, Expires: 05/26/2024 [facility] Comment on above: Expected: 02/25/2024 , Expires: 05/26/2024 Start: 02-25-2024 End: 05-26-2024 Comprehensive metabolic 2000 panel - Serum or Plasma COMPREHENSIVE METABOLIC PANEL Lab Routine Dyslipidemia IFG (impaired fasting glucose) Expected: 02/25/2024, Expires: 05/26/2024 [facility] Work Phone: Comment on above: Expected: 02/25/2024 , Expires: 05/26/2024 Start: 02-25-2024 End: 05-26-2024 Hemoglobin A1c in Blood HEMOGLOBIN A1C Lab Routine IFG (impaired fasting glucose) Expected: 02/25/2024, Expires: 05/26/2024 [facility] Comment on above: Expected: 02/25/2024 , Expires: 05/26/2024 Start: 02-25-2024 End: 05-26-2024 Lipid 1996 panel - Serum or Plasma LIPID PANEL BASIC Lab Routine Dyslipidemia Expected: 02/25/2024, Expires: 05/26/2024 [facility] Comment on above: Expected: 02/25/2024 , Expires: 05/26/2024 Start: 02-25-2024 End: 05-26-2024 Thyrotropin [Units/volume] in Serum or Plasma THYROID STIMULATING HORMONE Lab Routine Dyslipidemia Expected: 02/25/2024, Expires: 05/26/2024 [facility] Comment on above: Expected: 02/25/2024 , Expires: 05/26/2024 Start: 02-09-2024 Screening for malign ant neoplasm of cervix Cervical Cancer Screening [facility] Start: 01-06-2024 Covid-19 Vaccine ( season) Covid-19 Vaccine () [facility] Start: 01-06-2024 Covid-19 Vaccine ( season) Covid-19 Vaccine ( season) [facility] Start: 01-06-2024 Influenza vaccination Influenza Vacc ine (#1) [facility] Start: 12-13-2023 Mammography [facility] Start: 12-13-2023 Screening for malign ant neoplasm of breast Mammogram Screening [facility] Start: 10-07-2023 ANNUAL PCP TEAM CAMP DIRECTOR PEPE DISEASE VISIT ANNUAL PCP TEAM CHRONIC DISEASE VISIT [facility] Start: 08-16-2023 Ambulation without limitation [facility] Start: 08-16-2023 Medical regimen orde rs management [facility] Start: 08-16-2023 Medication education [facility] Start: 08-16-2023 Patient discharge [facility] Start: 08-16-2023 Procedure discontinued [facility] Start: 08-16-2023 Taking patient vital signs [facility] Start: 08-16-2023 Vital signs measurements [facility] Start: 08-16-2023 [facility] Start: 04-07-2023 End: 06-07-2023 25-hydroxyvitamin D3 [Mass/volume] in Serum or Plasma VITAMIN D 25 HYDROXY Lab Routine Well adult exam Vitamin D deficiency Expected: 04/07/2023, Expires: 06/07/2023 [facility] Work Phone: Comment on above: Expected: 04/07/2023 , Expires: 06/07/2023 Start: 04-07-2023 End: 06-07-2023 CBC panel - Blood by Automated count CBC Lab Routine Dyslipidemia Well adult exam Fatigue, unspecified type Expected: 04/07/2023, Expires: 06/07/2023 [facility] Work Phone: Comment on above: Expected: 04/07/2023 , Expires: 06/07/2023 Start: 04-07-2023 End: 06-07-2023 Cobalamin (Vitamin B12) [Mass/volume] in Serum or Plasma VITAMIN B12 BLOOD Lab Routine Well adult exam Expected: 04/07/2023, Expires: 06/07/2023 [facility] Work Phone: Comment on above: Expected: 04/07/2023 , Expires: 06/07/2023 Start: 04-07-2023 End: 06-07-2023 Comprehensive metabolic 2000 panel - Serum or Plasma COMP METABOLIC PANEL Lab Routine Dyslipidemia Well adult exam Fatigue, unspecified type Expected: 04/07/2023, Expires: 06/07/2023 [facility] Work Phone: Comment on above: Expected: 04/07/2023 , Expires: 06/07/2023 Start: 04-07-2023 End: 06-07-2023 Hemoglobin A1c in Blood HGB A1C Lab Routine IFG (impaired fasting glucose) Well adult exam Expected: 04/07/2023, Expires: 06/07/2023 [facility] Work Phone: Comment on above: Expected: 04/07/2023 , Expires: 06/07/2023 Start: 04-07-2023 End: 06-07-2023 Lipid 1996 panel - Serum or Plasma LIPID PANEL BASIC Lab Routine Dyslipidemia Well adult exam Expected: 04/07/2023, Expires: 06/07/2023 [facility] Work Phone: Comment on above: Expected: 04/07/2023 , Expires: 06/07/2023 Start: 04-07-2023 End: 06-07-2023 Thyrotropin [Units/volume] in Serum or Plasma TSH BLD Lab Routine Well adult exam Expected: 04/07/2023, Expires: 06/07/2023 [facility] Work Phone: Comment on above: Expected: 04/07/2023 , Expires: 06/07/2023 Start: 01-05-2023 Covid-19 Vaccine () Covid-19 Vaccine () [facility] Start: 01-05-2023 Influenza vaccination [facility] Start: 12-06-2022 Mammography MAMMOGRAM [facility] Start: 08-09-2022 ANNUAL PCP TEAM CAMP DIRECTOR PEPE DISEASE VISIT ANNUAL PCP TEAM CHRONIC DISEASE VISIT [facility] Start: 02-08-2022 End: 04-10-2022 CBC panel - Blood by Automated count CBC Lab Routine Dyslipidemia Expected: 02/08/2022, Expires: 04/10/2022 [facility] Work Phone: Comment on above: Expected: 02/08/2022 , Expires: 04/10/2022 Start: 02-08-2022 End: 04-10-2022 Comprehensive metabolic 2000 panel - Serum or Plasma COMP METABOLIC PANEL Lab Routine Dyslipidemia Expected: 02/08/2022, Expires: 04/10/2022 [facility] Work Phone: Comment on above: Expected: 02/08/2022 , Expires: 04/10/2022 Start: 02-08-2022 End: 04-10-2022 Hemoglobin A1c/Hemoglobin.total in Blood HGB A1C Lab Routine IFG (impaired fasting glucose) Expected: 02/08/2022, Expires: 04/10/2022 [facility] Work Phone: Comment on above: Expected: 02/08/2022 , Expires: 04/10/2022 Start: 02-08-2022 End: 04-10-2022 LIPID PANEL BASIC LIPID PANEL BASIC Lab Routine Dyslipidemia Expected: 02/08/2022, Expires: 04/10/2022 [facility] Work Phone: Comment on above: Expected: 02/08/2022 , Expires: 04/10/2022 Start: 01-05-2022 Influenza vaccination [facility] Start: 12-01-2021 Mammography MAMMOGRAM [facility] Start: 08-11-2021 Adult depression screening assessment DEPRESSION SCREENING [facility] Start: 08-09-2021 End: 10-09-2021 Hepatitis C virus Ab [Presence] in Serum HEP C AB IA W/CONF SCRN Lab Routine Encounter for hepatitis C screening test for low risk patient Expected: 08/09/2021, Expires: 10/09/2021 [facility] Work Phone: Comment on above: Expected: 08/09/2021 , Expires: 10/09/2021 Start: 07-24-2021 COVID-19 VACCINE (4 - Booster for Pfizer series) COVID-19 VACCINE (4 - Booster for Pfizer series) [facility] Start: 05-07-2021 DEPRESSION ASSESSMENT DEPRESSION ASS ESSMENT [facility] Start: 2015 COLOGUARD (FIT-DNA) COLOGUARD (FIT-D NA) [facility] Start: [address] COLONOGRAPHY [facility] Start: 2015 FECAL OCCULT BLOOD FECAL OCCULT BLOO D [facility] Start: 2015 Screening for malign ant neoplasm of colon [facility] Start: 2015 [facility] Start: 1989 Hepatitis B Vaccine (1 of 3 - 19+ 3-dose series) Hepatitis B Vaccine (1 of 3 - 19+ 3-dose series) [facility] Start: 1988 Anxiety Screening Anxiety Screening [facility] Start: 1988 Depression Screening Depression Scre ening [facility] Start: 1988 HEPATITIS C SCREENING HEPATITIS C SC REENING [facility] Start: 1988 Hepatitis C screening Hepatitis C Sc luisning [facility] Start: 1988 HIV SCREENING HIV SCREENING [facility] Start: 1988 HIV screening HIV Screening [facility] Start: 1976 PNEUMOCOCCAL (1 - PCV) PNEUMOCOCCAL (1 - PCV) [facility] Start: 1976 Pneumococcal vaccination Pneumococcal Vaccine (1 - PCV) [facility] Start: 1970 HEPATITIS B (1 of 3 - 3-dose series) HEPATITIS B (1 of 3 - 3-dose series) [facility] Start: 1970 Hepatitis B Vaccine (1 of 3 - 3-dose series) Hepatitis B Vaccine (1 of 3 - 3-dose series) [facility] End: 12-13-2024 DBT Breast - bilateral screening ANTONIA SCREENING [facility] Radiology Routine Encounter for screening mammogram for malignant neoplasm of breast 1 Occurrences starting 11/14/2023 until 12/13/2024 [facility] Work Phone: Comment on above: 1 Occurrences starti ng 11/14/2023 until 12/13/2024 End: 12-28-2025 DBT Breast - bilateral screening ANTONIA SCREENING [facility] Radiology Routine Encounter for screening mammogram for malignant neoplasm of breast 1 Occurrences starting 12/01/2024 until 12/28/2025 [facility] Work Phone: Comment on above: 1 Occurrences starti ng 12/01/2024 until 12/28/2025 End: 11-05-2023 DXA-AXIAL SKELETON DXA-AXIAL SKELETON Radiology Routine Screening for osteoporosis 1 Occurrences starting 10/06/2022 until 11/05/2023 [facility] Work Phone: Comment on above: 1 Occurrences starti ng 10/06/2022 until 11/05/2023 Endometrial bx w/wo endocervix bx w/o dilat spx ENDOMETRIAL BIOPSY Procedures Routine Unexplained endometrial cells on cervical Pap smear Ordered: 02/17/2022 [facility] Work Phone: Comment on above: Ordered: 02/17/2022 Endometrial bx w/wo endocervix bx w/o dilat spx ENDOMETRIAL BIOPSY Procedures Routine Postmenopausal bleeding Ordered: 06/26/2023 [facility] Work Phone: Comment on above: Ordered: 06/26/2023 HPV W/GENOTYPE THIN PREP HPV W/GENOTYPE THIN PREP Lab Routine Encounter for gynecological examination (general) (routine) without abnormal findings Pap smear for cervical cancer screening 02/08/2023 9:55 AM EDT [facility] Work Phone: End: 12-15-2022 ANTONIA SCREENING [facility] ANTONIA SCREENING [facility] Radiology Routine Encounter for screening mammogram for malignant neoplasm of breast 1 Occurrences starting 11/15/2021 until 12/15/2022 [facility] Work Phone: Comment on above: 1 Occurrences starti ng 11/15/2021 until 12/15/2022 End: 11-05-2023 ANTONIA SCREENING [facility] ANTONIA SCREENING [facility] Radiology Routine Encounter for screening mammogram for malignant neoplasm of breast 1 Occurrences starting 10/06/2022 until 11/05/2023 [facility] Work Phone: Comment on above: 1 Occurrences starti ng 10/06/2022 until 11/05/2023 PAP FLUID CERVICAL SCREENING PAP FLUID CERVICAL SCREENING Lab Routine Screening for malignant neoplasm of cervix Encounter for screening for human papillomavirus (HPV) Ordered: 02/06/2022 [facility] Work Phone: Comment on above: Ordered: 02/06/2022 PAP TEST PAP TEST Lab Rou c[facility] Encounter for gynecological examination (general) (routine) without abnormal findings Pap smear for cervical cancer screening 02/08/2023 9:55 AM EDT [facility] Work Phone: Patient referral [facility] Work Phone: SURGICAL PATHOLOGY SURGICAL PATH OLOGY Lab Routine Non-atypical endometrial cells of cervix on Pap smear Ordered: 02/21/2022 [facility] Work Phone: Comment on above: Ordered: 02/21/2022 SURGICAL PATHOLOGY SURGICAL PATH OLOGY Lab Routine Postmenopausal bleeding 06/26/2023 10:14 AM EST [facility] Work Phone: End: 07-25-2024 US Pelvis transvaginal US FEMALE PELVIS TRANSVAG Radiology Routine Postmenopausal bleeding 1 Occurrences starting 06/26/2023 until 07/25/2024 [facility] [facility] Work Phone: Comment on above: 1 Occurrences starti ng 06/26/2023 until 07/25/2024 [facility] Immunizations Immunization Date Immunization Notes Care Provider Dale liu 03-19-2024 influenza virus vaccine, unspecified formulation Cam Tripp DO Work Phone: [facility] 04-10-2023 influenza, injectabl e, quadrivalent, contains preservative Cam Tripp DO Work Phone: [facility] Work Phone: 04-10-2023 pneumococcal (PCV20) vaccine, 20 valent (PREVNAR 20) Cam Tripp DO Work Phone: [facility] Work Phone: 04-10-2023 pneumococcal Conjuga te, unspecified formulation Cam Tripp DO Work Phone: [facility] Work Phone: 04-10-2023 influenza virus vaccine, unspecified formulation Yakelin Bailey APRN.RN NEUROSURGICAL Work Phone: [facility] 02-02-2022 COVID-19 booster vaccine, age 12+ yr, bivalent ([email or web address]) Sd Nurse Work Phone: [facility] Work Phone: 08-09-2021 zoster vaccine recombinant Cam Tripp DO Work Phone: [facility] Work Phone: 02-07-2021 zoster vaccine recombinant Cam Tripp DO Work Phone: [facility] 02-03-2019 influenza, seasonal, injectable Cam Tripp DO Work Phone: [facility] Work Phone: 02-03-2019 influenza virus vaccine, unspecified formulation Ann Rivera APRN.RN NEUROSURGICAL Work Phone: [facility] 01-28-2018 influenza, seasonal, injectable Cam Tripp DO Work Phone: [facility] Work Phone: 10-29-2017 tetanus toxoid, redu dinora diphtheria toxoid, and acellular pertussis vaccine, adsorbed Cam Tripp DO Work Phone: [facility] Work Phone: 04-13-2017 influenza, injectabl e, quadrivalent, contains preservative Cam Tripp DO Work Phone: [facility] Work Phone: 03-24-2016 influenza, injectabl e, quadrivalent, contains preservative Cam Tripp DO Work Phone: [facility] Work Phone: 03-22-2015 influenza, injectabl e, quadrivalent, contains preservative Cam Tripp DO Work Phone: [facility] 04-10-2014 influenza, seasonal, injectable Cam Tripp DO Work Phone: [facility] Work Phone: 01-30-2009 influenza virus vaccine, unspecified formulation Cam Tripp DO Work Phone: [facility] Work Phone: Payers Date Payer Category Payer Self-pay [id number] 2023 [facility] OOS [id number] 2023 Unknown [id number] 2021 Unknown [employer]ULIO PPO [id number] 2021-Present [phone] [address] [place] [address] PPO [id number] 2021 Unknown [id number] Unknown SELF PAY INSURANCE [id number] Unknown [id number] Unknown ALLISON [id number] Unknown [id number] Social History Date Type Detail Facility Start: 07-26-2020 End: 08-08-2023 Tobacco smoking status NEIS Unknown if ever smoked [facility] Start: 1970 Sex Assigned At Female W [facility] Start: 01-02-2012 End: 02-21-2022 Tobacco smoking status NEIS Never smoked tobacco [facility] Work Phone: Start: 01-02-2012 End: 02-21-2022 Tobacco use and exposure Former smokeless tobacco user [facility] Work Phone: History of tobacco use Snuff User [facility] Work Phone: Start: 08-09-2021 End: 09-26-2024 Alcohol intake Current non-drinker of alcohol (finding) [facility] Start: 08-08-2021 History SDOH Alcohol Frequency 1 [facility] Start: 08-08-2021 History SDOH Alcohol Std Drinks 98 [facility] Start: 01-16-2020 End: 08-08-2021 History SDOH Social Connections Get Together 2 [facility] Start: 08-08-2021 History SDOH Social Connections Living 4 [facility] Start: 01-16-2020 History SDOH Physica l Activity DPW 0 [facility] Start: 08-08-2021 History SDOH Financial 5 [facility] Start: 08-08-2021 History SDOH Housing Unable to Pay 3 [facility] Start: 01-16-2020 Education 16 [facility] Start: 10-24-2012 End: 02-21-2022 Tobacco Comment chew tobacco [facility] Start: 1970 Sex Assigned At Not on file [facility] Start: 07-30-2021 End: 02-21-2022 Exposure to SARS-CoV-2 (event) Not sure [facility] Work Phone: Start: 01-23-2022 End: 02-02-2022 Exposure to SARS-CoV-2 (event) Unable to assess [facility] Work Phone: Start: 10-06-2022 End: 09-25-2024 History of Social function [facility] Work Phone: Start: 10-06-2022 End: 09-25-2024 Tobacco use panel [facility] Work Phone: Adult Depression Screening Assessment 0 [facility] Work Phone: Do you belong to any clubs or organizations such as mormonism groups, unions, fraternal or athletic groups, or school groups? No [facility] Are you now , , , , never or living with a partner? [facility] How often to you hav e a drink containing alcohol? Never [facility] (I/We) worried wheth er (my/our) food would run out before (I/we) got money to buy more. DK or Refused [facility] Do you feel stress - tense, restless, nervous, or anxious, or unable to sleep at night because your mind is troubled all the time - these days [OSQ] Not at all [facility] (I/We) worried wheth er (my/our) food would run out before (I/we) got money to buy more. Never true [facility] NEGATED: Highlighted row [facility] Medical Equipment Procedure Code Equipment Code Equipment Origin al Text Equipment Identifier Dates JENY ASYMMETR IC PATELLA FDA Start: 08-09-2020 JENY CR FEMOR AL COMPONENT FDA Start: 08-09-2020 JENY TIBIAL BEARING INSERT FDA Start: 08-09-2020 JENY TIBIAL COMPONENT FDA Start: 08-09-2020 JENY ASYMMETR IC PATELLA FDA Start: 08-09-2020 JENY CR FEMOR AL COMPONENT FDA Start: 08-09-2020 JENY TIBIAL BEARING INSERT FDA Start: 08-09-2020 JENY TIBIAL COMPONENT FDA Start: 08-09-2020 JENY ASYMMETR IC PATELLA FDA Start: 08-09-2020 JENY CR FEMOR AL COMPONENT FDA Start: 08-09-2020 JENY TIBIAL BEARING INSERT FDA Start: 08-09-2020 JENY TIBIAL COMPONENT FDA Start: 08-09-2020 JENY ASYMMETR IC PATELLA FDA Start: 08-09-2020 JENY CR FEMOR AL COMPONENT FDA Start: 08-09-2020 JENY TIBIAL BEARING INSERT FDA Start: 08-09-2020 JENY TIBIAL COMPONENT FDA Start: 08-09-2020 Goals Date Patient Goal Desired Activity /State Functional Status Date Assessment Result Facility 08-19-2014 Are you deaf, or do you have serious difficulty hearing No 08/19/2014 2:18 PM EDT Aruna Michelle LPN No [facility] 08-19-2014 Are you blind, or do you have serious difficulty seeing, even when wearing glasses No 08/19/2014 2:18 PM EDT Aruna Michelle LPN No [facility] 08-19-2014 Do you have serious difficulty walking or climbing stairs No 08/19/2014 2:18 PM YOSSIT Aruna Michelle LPN No [facility] 08-19-2014 Do you have difficul ty dressing or bathing No 08/19/2014 2:18 PM EDT Aruna Michelle LPN No [facility] 08-19-2014 Because of a physica l, mental, or emotional condition, do you have difficulty doing errands alone such as visiting a physician's office or shopping No 08/19/2014 2:18 PM EDT Aruna Michelle LPN No [facility] Mental Status Date Assessment Result Facility 08-16-2023 Cognitive function Voice/Name [facility] Work Phone: 08-19-2014 Because of a physica l, mental, or emotional condition, do you have serious difficulty concentrating, remembering, or making decisions No 08/19/2014 2:18 PM EDT Aruna Michelle LPN No [facility] Clinical Notes 08-09-2021 to 12-01-2024 Telephone Encounter - Kameron Mcdowell RN - 12/01/2024 12:17 PM EDTTelephone Encounter - Kameron Mcdowell RN - 12/01/2024 12:17 PM EDTBMaday sidhu MA - 09/22/2024 3:30 PM EDT Note Date & Type Note Facility 12-01-2024 Telephone encounter Note Order faxed to [facility] as requested. Notified patient to follow up with [facility] for scheduling with verbalized understanding. Kameron Mcdowell RN [facility] 12-01-2024 Miscellaneous Notes Order faxed to [facility] as requested. Notified patient to follow up with [facility] for scheduling with verbalized understanding. Kameron Mcdowell RN Order placed, please fax and notify patient Cam Tripp DO Patient calls to request an order for her mammogram to be placed. Last completed 12/13/2024. Pended. Patient would like to have order faxed to [facility]. Please call patient at [phone] once sent. Kameron Mcdowell RN documented in this encounter [facility] 12-01-2024 Telephone encounter Note Order placed, please fax and notify patient Cam Tripp DO [facility] 11-28-2024 Telephone encounter Note Patient calls to request an order for her mammogram to be placed. Last completed 12/13/2024. Pended. Patient would like to have order faxed to [facility]. Please call patient at [phone] once sent. Kameron Mcdowell RN [facility] 10-02-2024 Telephone encounter Note Patient was made aware of the results. Patient verbalizes understanding. Nichole Qureshi Ma [facility] 10-02-2024 Miscellaneous Notes Patient was made aware of the results. Patient verbalizes understanding. Nichole Qureshi Ma ----- Message from Marleen Trejo sent at 10/02/2024 8:06 AM EDT ----- Please let patient know that thoracic spine shows some degenerative changes. This means osteoarthritis and they are mild to moderate. Please let patient know that thoracic spine shows some degenerative changes. This means osteoarthritis and they are mild to moderate. documented in this encounter [facility] 10-02-2024 Telephone encounter Note ----- Message from Marleen Trejo sent at 10/02/2024 8:06 AM EDT ----- Please let patient know that thoracic spine shows some degenerative changes. This means osteoarthritis and they are mild to moderate. [facility] 10-02-2024 Progress note Formatting of t his note might be different from the original. Please let patient know that thoracic spine shows some degenerative changes. This means osteoarthritis and they are mild to moderate. [facility] 09-26-2024 Note HNO ID: [id number] Author: LITA KESSLER RT(R) Service: ? Author Type: State Epidemiologist Type: Progress Notes Filed: 09/26/2024 15:38 Note Text: Radiology Service Progress Note PATIENT NAME: Nancy Weldon DATE OF SERVICE: September 26, 2024 TIME: 3:29 PM PATIENT IDENTITY VERIFICATION COMPLETED USING TWO (2) IDENTIFIERS: Name and Date of confirmed by patient verbally. FALL SCREENING: Has the patient had 2 falls in the last year or 1 fall with injury or currently using an Ambulatory Assistive Device (Walker, Cane, Wheelchair, Crutches, etc.)? No PATIENT GENDER DATA: Assigned female at . status: : No status: NO. PATIENT RELEVANT IMPLANT DATA REVIEWED: Yes PATIENT PRESENTS WITH AN IMPLANTABLE OR ATTACHED JUMP ROLL OPERATOR: No RADIOLOGY DEPARTMENT: General X-ray: Exam(s) Completed: Spine X-Ray(s): Thoracic PERIPHERAL IV DATA: Not applicable SIGNED BY: RT Savita(R) September 26, 2024 3:29 PM [facility] 09-26-2024 Note HNO ID: [id number] Author: MARLEEN TREJO APRN.CNP Service: ? Author Type: Nurse Practitioner Type: Progress Notes Filed: 09/26/2024 15:22 Note Text: This is a 54 year old female who presents today with: Patient presents with: Follow Up: Sinobronchitis HISTORY OF PRESENT ILLNESS: Nancy Weldon is a 54 year old female. Patient presents with: Follow Up: Sinobronchitis is a 54-year-old female with a history of osteoarthritis, presenting for follow-up of a cough and chest congestion, and evaluation of a bone spur noted on a recent chest x-ray. Cough and Chest Congestion: - Persistent cough and chest congestion. - Cough initially caused pain in the sides; now associated with back pain. - No longer experiencing head congestion; denies sore throat, nausea, emesis, diarrhea, or rashes. - Using Nasacort nasal spray daily. - Currently on doxycycline (7-day course) and prednisone (5-day course); one day remaining of prednisone and a couple of days remaining of doxycycline. - Reports significant improvement in symptoms since starting medications. - Denies headaches, fevers, or chills. Bone Spur: - Recent chest x-ray revealed a possible bone spur. - Uncertain about the location of the bone spur. - Previous back x-ray in January of last year showed multi-level degenerative disc disease with osteophytes. - History of osteoarthritis in the back, shoulder, and knees; right knee has been replaced. PAST MEDICAL HISTORY: PAST MEDICAL HISTORY Diagnosis Date Allergic rhinitis Arthritis Asthma (HCC) GERD (gastroesophageal reflux disease) OA (osteoarthritis) of knee Dr[facility] Vitamin D deficiency PAST SURGICAL HISTORY Procedure Laterality Date APPENDECTOMY 05/07/1979 APPENDECTOMY HX BACK SURGERY HX CARPAL TUNNEL 05/07/2010 bilateral wrist COLONOSCOPY FLX DX W/COLLJ SPEC WHEN PFRMD 12/27/2020 EXCIS LESION, MENISCUS OR CAPSULE, KNEE 05/28/13,08/2014 [facility], right knee medial meniscus repair HYSTEROSCOPY BX ENDOMETRIUMAND/POLYPC W/WO DANDC 08/16/2023 DANDC w/ polyp resection and Liletta IUD insertion JOINT REPLACEMENT HX Right 08/09/2020 LOW BACK DISK SURGERY 05/07/2001 L4-herniated disc OSTECTOMY CALCANEUS SPUR W/WO PLNTAR FASCIAL RLS left foot TOTAL KNEE REPLACEMENT Right 08/09/2020 Dr. Willis ALLERGIES Voltaren [Diclofenac Sodium] MEDICATIONS Current Outpatient Medications Medication Sig doxycycline monohydrate 100 mg tablet Take 1 tablet by mouth two times a day for 7 days. predniSONE (DELTASONE) 20 mg tablet Take 2 tablets by mouth once daily for 5 days. Take daily with food. meloxicam (MOBIC) 15 mg tablet Take 1 tablet by mouth every afternoon. fluticasone furoate (ARNUITY ELLIPTA) 100 mcg/actuation inhaler Inhale 1 Puff as instructed once daily. Inhale one puff once daily. DO NOT CLICK OPEN UNTIL READY FOR DOSE omeprazole (PRILOSEC) 20 mg capsule Take 1 capsule by mouth once daily. levonorgestrel (LILETTA) 20.4 mcg/24 hrs (8 yrs) 52 mg IUD 1 Each by INTRAUTERINE route as directed. loratadine/pseudoephedrine (ALLERGY RELIEF-D, LORATADINE, ORAL) Take by mouth once daily. ncvmnmj-ycnvexkyj-gjkkqi 180 167-65-200 mg tab Take by mouth once daily. cyanocobalamin, vitamin B-12, (VITAMIN B-12 ORAL) Take by mouth once daily. FLUTICASONE PROPIONATE (FLONASE NASAL) Use in the nose once daily. Two in each nostril daily Cholecalciferol, Vitamin D3, 25 mcg (1,000 unit) cap Take 1,000 Units by mouth twice daily. Takes 2,000 units daily multivitamins(DAILY MULTIPLE TAB) Take one(1) tablet daily. No current facility-administered medications for this visit. FAMILY HISTORY Problem Relation Age of Onset Asthma Mother Asthma Father Dementia Father other (heart disease) Father 64 Breast Cancer Maternal Grandmother Diabetes Paternal Grandmother Social History Tobacco Use Smoking status: Never Smokeless tobacco: Former Types: Snuff Tobacco comments: chew tobacco Vaping Use Vaping status: Never Used Substance Use Topics Alcohol use: No Drug use: No REVIEW OF SYSTEMS Constitutional: (-) fever, (-) chills Head: (-) headaches Ears/Nose/Mouth/Throat: (-) sore throat, (-) congestion Respiratory: (+) cough, (+) chest congestion, (-) phlegm Gastrointestinal: (-) nausea, (-) vomiting, (-) diarrhea Musculoskeletal: (+) side pain, (+) back pain Skin: (-) rashes or itching EXAM: BP 120/68 Pulse 77 Temp 36.6 ?C (97.9 ?F) (Left Tympanic) Wt 117.5 kg (259 lb) LMP 06/09/2023 (Within Weeks) SpO2 97% BMI 41.62 kg/m? PHYSICAL EXAM: GENERAL: NAD, alert and oriented. SKIN: Unremarkable, no rash or skin lesions. HEAD: Normocephalic. EYES: conjunctiva clear. EARS: External ears normal, canals clear, TM's normal. NOSE/SINUSES: Nares normal. Septum midline. Sinuses erythematous but smooth, no purulent drainage. OROPHARYNX: Lips, mucosa, and tongue normal, good dentition. Erythem (more content not included)... [facility] 09-22-2024 Note HNO ID: [id number] Author: MADAY MORALES MA Service: ? Author Type: Branch Services Manager Type: Progress Notes Filed: 09/22/2024 15:39 Note Text: 2.5 solution aerosol treatment given per provider's orders. Prior to treatment O2 sat is 95%. Treatment completed. O2 sat is 95%. Tolerated well. Maday Morales MA [facility] 09-22-2024 History of Present illness Narrative 2.5 solution aerosol treatment given per provider's orders. Prior to treatment O2 sat is 95%. Treatment completed. O2 sat is 95%. Tolerated well. Maday Morales MA [facility] Subjective HPI HPI Nancy Weldon is a 54 year old female who presents today for CC of cough, congestion. This started 2 weeks ago. Has tried otc medication and asthma medication for relief. Symptoms are worsened by nothing. Risk factors hx of asthma. nonsmoker. .Patient presents with: Chest Congestion: cough x 2 weeks PAST MEDICAL HISTORY Diagnosis Date Allergic rhinitis Arthritis Asthma GERD (gastroesophageal reflux disease) OA (osteoarthritis) of knee Dr[facility] Vitamin D deficiency PAST SURGICAL HISTORY Procedure Laterality Date APPENDECTOMY 05/07/1979 APPENDECTOMY HX BACK SURGERY HX CARPAL TUNNEL 05/07/2010 bilateral wrist COLONOSCOPY FLX DX W/COLLJ SPEC WHEN PFRMD 12/27/2020 EXCIS LESION, MENISCUS OR CAPSULE, KNEE 05/28/13,08/2014 [facility], right knee medial meniscus repair HYSTEROSCOPY BX ENDOMETRIUM&/POLYPC W/WO D&C 08/16/2023 D&C w/ polyp resection and Liletta IUD insertion JOINT REPLACEMENT HX Right 08/09/2020 LOW BACK DISK SURGERY 05/07/2001 L4-herniated disc OSTECTOMY CALCANEUS SPUR W/WO PLNTAR FASCIAL RLS left foot TOTAL KNEE REPLACEMENT Right 08/09/2020 Dr. Willis ALLERGIES Voltaren [Diclofenac Sodium] MEDICATIONS meloxicam (MOBIC) 15 mg tablet Take 1 tablet by mouth every afternoon. fluticasone furoate (ARNUITY ELLIPTA) 100 mcg/actuation inhaler Inhale 1 Puff as instructed once daily. Inhale one puff once daily. DO NOT CLICK OPEN UNTIL READY FOR DOSE omeprazole (PRILOSEC) 20 mg capsule Take 1 capsule by mouth once daily. levonorgestrel (LILETTA) 20.4 mcg/24 hrs (8 yrs) 52 mg IUD 1 Each by INTRAUTERINE route as directed. loratadine/pseudoephedrine (ALLERGY RELIEF-D, LORATADINE, ORAL) Take by mouth once daily. fykwquw-opnoesgly-gwpopo 180 167-65-200 mg tab Take by mouth once daily. cyanocobalamin, vitamin B-12, (VITAMIN B-12 ORAL) Take by mouth once daily. FLUTICASONE PROPIONATE (FLONASE NASAL) Use in the nose once daily. Two in each nostril daily Cholecalciferol, Vitamin D3, 25 mcg (1,000 unit) cap Take 1,000 Units by mouth twice daily. Takes 2,000 units daily multivitamins(DAILY MULTIPLE TAB) Take one(1) tablet daily. FAMILY HISTORY Problem Relation Age of Onset Asthma Mother Asthma Father Dementia Father other (heart disease) Father 64 Breast Cancer Maternal Grandmother Diabetes Paternal Grandmother Social History Tobacco Use Smoking status: Never Smokeless tobacco: Former Types: Snuff Tobacco comments: chew tobacco Vaping Use Vaping status: Never Used Substance Use Topics Alcohol use: No Drug use: No Review of Systems Objective BP 124/74 Pulse 74 Temp 36.6 C (97.9 F) Resp 18 Wt 117.6 kg (259 lb 4.2 oz) LMP 06/09/2023 (Within Weeks) SpO2 97% BMI 41.67 kg/m Physical Exam Pulmonary: Breath sounds: Rhonchi (scattered bilat) present. No decreased breath sounds, wheezing or rales. Comments: Lung sounds clear after neb treatment. {ASSESSMENT/PLAN: 1. Sinobronchitis - ICD9: 473.9, 490, ICD10: J32.9, J40 (primary diagnosis) - Will begin treatment with as per antibiotic as written, see orders - Supportive care with plenty of fluids, rest, and analgesia prn. - Follow up in 3-5 days if symptoms persist or worsen. - DOXYCYCLINE MONOHYDRATE 100 MG TABLET - PREDNISONE 20 MG TABLET 2. Abnormal x-ray - ICD9: 793.99, ICD10: R93.89 Will schedule f/u with pcp for recheck 3. Acute cough - ICD9: 786.2, ICD10: R05.1 - XR CHEST 2V FRONTAL/LAT IMPRESSION: Small mass lesion versus osteophyte in the spine on lateral view. Consider follow-up. Dictated by : DONIS OLMEDO MD - ALBUTEROL SULFATE 2.5 MG/3 ML (0.083 %) SOLUTION FOR NEBULIZATION -improvement in breath sounds and patient cough noted after neb treatment Jonathan Duarte APRN.GARRETT History and Record Review External record(s) reviewed: prior outpatient record and prior labs/imaging. Findings from review of outpatient records: asthma Findings from review of prior labs/imaging: Previous Renal Function Panel Reviewed 03/28/2024: BUN 13; Creatinine 0.60; Estimated Glomerular Filtration Rate 107 Disposition The patient was discharged. Procedures documented in this encounter [facility] 09-22-2024 History of Present illness Narrative Radiology Service Progress Note PATIENT NAME: Nancy Weldon DATE OF SERVICE: September 22, 2024 TIME: 3:11 PM PATIENT IDENTITY VERIFICATION COMPLETED USING TWO (2) IDENTIFIERS: Name and Date of confirmed by patient verbally. FALL SCREENING: Has the patient had 2 falls in the last year or 1 fall with injury or currently using an Ambulatory Assistive Device (Walker, Cane, Wheelchair, Crutches, etc.)? No PATIENT GENDER DATA: Assigned female at . status: : No status: NO. PATIENT RELEVANT IMPLANT DATA REVIEWED: Not Applicable PATIENT PRESENTS WITH AN IMPLANTABLE OR ATTACHED JUMP ROLL OPERATOR: No RADIOLOGY DEPARTMENT: General X-ray: Exam(s) Completed: Chest X-Ray PERIPHERAL IV DATA: Not applicable SIGNED BY: Ramana Worley September 22, 2024 3:11 PM documented in this encounter [facility] 09-22-2024 Note HNO ID: [id number] Author: AUDREY TATE Tech Service: ? Author Type: Technologist Type: Progress Notes Filed: 09/22/2024 15:18 Note Text: Radiology Service Progress Note PATIENT NAME: Nancy Weldon DATE OF SERVICE: September 22, 2024 TIME: 3:11 PM PATIENT IDENTITY VERIFICATION COMPLETED USING TWO (2) IDENTIFIERS: Name and Date of confirmed by patient verbally. FALL SCREENING: Has the patient had 2 falls in the last year or 1 fall with injury or currently using an Ambulatory Assistive Device (Walker, Cane, Wheelchair, Crutches, etc.)? No PATIENT GENDER DATA: Assigned female at . status: : No status: NO. PATIENT RELEVANT IMPLANT DATA REVIEWED: Not Applicable PATIENT PRESENTS WITH AN IMPLANTABLE OR ATTACHED JUMP ROLL OPERATOR: No RADIOLOGY DEPARTMENT: General X-ray: Exam(s) Completed: Chest X-Ray PERIPHERAL IV DATA: Not applicable SIGNED BY: Ramana Worley September 22, 2024 3:11 PM [facility] 09-22-2024 Note HNO ID: [id number] Author: JONATHAN DUARET APRN.RN NEUROSURGICAL Service: ? Author Type: Nurse Practitioner Type: Progress Notes Filed: 09/22/2024 15:39 Note Text: [facility] Subjective HPI HPI Nancy Weldon is a 54 year old female who presents today for CC of cough, congestion. This started 2 weeks ago. Has tried otc medication and asthma medication for relief. Symptoms are worsened by nothing. Risk factors hx of asthma. nonsmoker. .Patient presents with: Chest Congestion: cough x 2 weeks PAST MEDICAL HISTORY Diagnosis Date Allergic rhinitis Arthritis Asthma GERD (gastroesophageal reflux disease) OA (osteoarthritis) of knee Dr[facility] Vitamin D deficiency PAST SURGICAL HISTORY Procedure Laterality Date APPENDECTOMY 05/07/1979 APPENDECTOMY HX BACK SURGERY HX CARPAL TUNNEL 05/07/2010 bilateral wrist COLONOSCOPY FLX DX W/COLLJ SPEC WHEN PFRMD 12/27/2020 EXCIS LESION, MENISCUS OR CAPSULE, KNEE 05/28/13,08/2014 Dr[facility], right knee medial meniscus repair HYSTEROSCOPY BX ENDOMETRIUMAND/POLYPC W/WO DANDC 08/16/2023 DANDC w/ polyp resection and Liletta IUD insertion JOINT REPLACEMENT HX Right 08/09/2020 LOW BACK DISK SURGERY 05/07/2001 L4-herniated disc OSTECTOMY CALCANEUS SPUR W/WO PLNTAR FASCIAL RLS left foot TOTAL KNEE REPLACEMENT Right 08/09/2020 Dr. Willis ALLERGIES Voltaren [Diclofenac Sodium] MEDICATIONS meloxicam (MOBIC) 15 mg tablet Take 1 tablet by mouth every afternoon. fluticasone furoate (ARNUITY ELLIPTA) 100 mcg/actuation inhaler Inhale 1 Puff as instructed once daily. Inhale one puff once daily. DO NOT CLICK OPEN UNTIL READY FOR DOSE omeprazole (PRILOSEC) 20 mg capsule Take 1 capsule by mouth once daily. levonorgestrel (LILETTA) 20.4 mcg/24 hrs (8 yrs) 52 mg IUD 1 Each by INTRAUTERINE route as directed. loratadine/pseudoephedrine (ALLERGY RELIEF-D, LORATADINE, ORAL) Take by mouth once daily. [id number]-vtkofechh-ecmhwn 180 167-65-200 mg tab Take by mouth once daily. cyanocobalamin, vitamin B-12, (VITAMIN B-12 ORAL) Take by mouth once daily. FLUTICASONE PROPIONATE (FLONASE NASAL) Use in the nose once daily. Two in each nostril daily Cholecalciferol, Vitamin D3, 25 mcg (1,000 unit) cap Take 1,000 Units by mouth twice daily. Takes 2,000 units daily multivitamins(DAILY MULTIPLE TAB) Take one(1) tablet daily. FAMILY HISTORY Problem Relation Age of Onset Asthma Mother Asthma Father Dementia Father other (heart disease) Father 64 Breast Cancer Maternal Grandmother Diabetes Paternal Grandmother Social History Tobacco Use Smoking status: Never Smokeless tobacco: Former Types: Snuff Tobacco comments: chew tobacco Vaping Use Vaping status: Never Used Substance Use Topics Alcohol use: No Drug use: No Review of Systems Objective BP 124/74 Pulse 74 Temp 36.6 ?C (97.9 ?F) Resp 18 Wt 117.6 kg (259 lb 4.2 oz) LMP 06/09/2023 (Within Weeks) SpO2 97% BMI 41.67 kg/m? Physical Exam Pulmonary: Breath sounds: Rhonchi (scattered bilat) present. No decreased breath sounds, wheezing or rales. Comments: Lung sounds clear after neb treatment. {ASSESSMENT/PLAN: 1. Sinobronchitis - ICD9: 473.9, 490, ICD10: J32.9, J40 (primary diagnosis) - Will begin treatment with as per antibiotic as written, see orders - Supportive care with plenty of fluids, rest, and analgesia prn. - Follow up in 3-5 days if symptoms persist or worsen. - DOXYCYCLINE MONOHYDRATE 100 MG TABLET - PREDNISONE 20 MG TABLET 2. Abnormal x-ray - ICD9: 793.99, ICD10: R93.89 Will schedule f/u with pcp for recheck 3. Acute cough - ICD9: 786.2, ICD10: R05.1 - XR CHEST 2V FRONTAL/LAT IMPRESSION: Small mass lesion versus osteophyte in the spine on lateral view. Consider follow-up. Dictated by : DONIS OLMEDO MD - ALBUTEROL SULFATE 2.5 MG/3 ML (0.083 %) SOLUTION FOR NEBULIZATION -improvement in breath sounds and patient cough noted after neb treatment Jonathan Duarte APRN.RN NEUROSURGICAL History and Record Review External record(s) reviewed: prior outpatient record and prior labs/imaging. Findings from review of outpatient records: asthma Findings from review of prior labs/imaging: Previous Renal Function Panel Reviewed 03/28/2024: BUN 13; Creatinine 0.60; Estimated Glomerular Filtration Rate 107 Disposition The patient was discharged. Procedures [facility] 07-09-2024 Telephone encounter Note Call placed to patient and notified prescription was sent to [facility]. Kameron Mcdowell RN [facility] 07-09-2024 Miscellaneous Notes Call placed to patient and notified prescription was sent to [facility]. Kameron Mcdowell RN Yes, I am okay with filling rx Please let her know rx sent to pharmacy Cam Tripp DO The following approved medication requests have been transmitted electronically. Requested Prescriptions Signed Prescriptions Disp Refills meloxicam (MOBIC) 15 mg tablet 90 tablet 1 Sig: Take 1 tablet by mouth every afternoon. Authorizing Provider: CAM TRIPP DO Patient calls to ask if provider would take over filling the meloxicam prescription. Patient reports it was originally ordered by Dr. Willis but she now only goes to that office every few years to have her knees checked. If provider agreeable would want prescription sent to [facility]. Pended for review. Kameron Mcdowell RN documented in this encounter [facility] 07-08-2024 Telephone encounter Note Yes, I am okay with filling rx Please let her know rx sent to pharmacy Cam Tripp DO The following approved medication requests have been transmitted electronically. Requested Prescriptions Signed Prescriptions Disp Refills meloxicam (MOBIC) 15 mg tablet 90 tablet 1 Sig: Take 1 tablet by mouth every afternoon. Authorizing Provider: CAM TRIPP DO [facility] 07-08-2024 Telephone encounter Note Patient calls to ask if provider would take over filling the meloxicam prescription. Patient reports it was originally ordered by Dr. Willis but she now only goes to that office every few years to have her knees checked. If provider agreeable would want prescription sent to [facility]. Pended for review. Kameron Mcdowell RN [facility] 04-14-2024 Note HNO ID: [id number] Author: CAM TRIPP, DO Service: ? Author Type: Physician Type: Progress Notes Filed: 04/14/2024 13:39 Note Text: CC: Nancy Weldon is a 53 year old female who presents to the office for physical HPI: Overall she is doing well. Asthma, well controlled, taking Arnuity as prescribed, rare use of albuterol GERD, well controlled, use of prilosec as prescribed Is more physically active recently with her job at [employer] and is walking more. Has lost about 18-20 lbs in the last 4 months Asking for FMLA to help with her mother's appointments etc. PAST MEDICAL HISTORY Diagnosis Date Allergic rhinitis Arthritis Asthma GERD (gastroesophageal reflux disease) OA (osteoarthritis) of knee Dr. [facility] Vitamin D deficiency PAST SURGICAL HISTORY Procedure Laterality Date APPENDECTOMY 05/07/1979 APPENDECTOMY HX BACK SURGERY HX CARPAL TUNNEL 05/07/2010 bilateral wrist COLONOSCOPY FLX DX W/COLLJ SPEC WHEN PFRMD 12/27/2020 EXCIS LESION, MENISCUS OR CAPSULE, KNEE 05/28/13,08/2014 Dr. [facility], right knee medial meniscus repair HYSTEROSCOPY BX ENDOMETRIUMAND/POLYPC W/WO DANDC 08/16/2023 DANDC w/ polyp resection and Liletta IUD insertion JOINT REPLACEMENT HX Right 08/09/2020 LOW BACK DISK SURGERY 05/07/2001 L4-herniated disc OSTECTOMY CALCANEUS SPUR W/WO PLNTAR FASCIAL RLS left foot TOTAL KNEE REPLACEMENT Right 08/09/2020 Dr. Willis Social History: Social History Tobacco Use Smoking status: Never Smokeless tobacco: Former Types: Snuff Tobacco comments: chew tobacco Vaping Use Vaping status: Never Used Substance Use Topics Alcohol use: No Drug use: No FAMILY HISTORY Problem Relation Age of Onset Asthma Mother Asthma Father Dementia Father other (heart disease) Father 64 Breast Cancer Maternal Grandmother Diabetes Paternal Grandmother Current Outpatient prescriptions: fluticasone furoate (ARNUITY ELLIPTA) 100 mcg/actuation inhaler Inhale 1 Puff as instructed once daily. Inhale one puff once daily. DO NOT CLICK OPEN UNTIL READY FOR DOSE omeprazole (PRILOSEC) 20 mg capsule Take 1 capsule by mouth once daily. levonorgestrel (LILETTA) 20.4 mcg/24 hrs (8 yrs) 52 mg IUD 1 Each by INTRAUTERINE route as directed. meloxicam (MOBIC) 15 mg tablet Take 1 tablet by mouth every afternoon. loratadine/pseudoephedrine (ALLERGY RELIEF-D, LORATADINE, ORAL) Take by mouth once daily. yvswjyf-ucpoubbwh-ygeqah 180 167-65-200 mg tab Take by mouth once daily. cyanocobalamin, vitamin B-12, (VITAMIN B-12 ORAL) Take by mouth once daily. FLUTICASONE PROPIONATE (FLONASE NASAL) Use in the nose once daily. Two in each nostril daily Cholecalciferol, Vitamin D3, 25 mcg (1,000 unit) cap Take 1,000 Units by mouth twice daily. Takes 2,000 units daily multivitamins(DAILY MULTIPLE TAB) Take one(1) tablet daily. Allergies: ALLERGIES Allergen Reactions Voltaren [Diclofena* Rash gel ROS: See HPI PE: 04/14/24 1140 BP: 110/60 Pulse: 76 Resp: 16 Temp: 36.2 ?C (97.2 ?F) TempSrc: Left Tympanic Weight: 123 kg (271 lb 2.7 oz) Height: 168 cm (5' 6.14) Gen: AANDO, NAD, non-toxic appearing, Pleasant, cooperative HEENT: NT/AC, PERRLA, EOMs intact b/l, nares clear and patent b/l, pharynx without erythema, exudate or lesions. Uvula midline. EACs without erythema or debris. TMs pearly ramirez with intact landmarks b/l. Neck: supple, No cervical LAD, no thyromegaly, no carotid bruits CV: RRR, normal S1 and S2, no murmurs, no gallops, no rubs, Pulses 2+ and symmetric in UE and LE b/l Lungs: normal respiratory effort, CTA b/l, no wheezing or rhonchi or rales Abd: soft, obese, NT, ND, +BS, no hepatosplenomegaly MS: FROM all 4 extremities Neuro: CN II-XII intact b/l, strength 5/5 b/l UE and LE, DTRs 2/4 UE and LE, sensation intact. Skin: warm, dry, intact, No rashes or lesions on exposed skin. No edema, normal pulses ASSESSMENT/PLAN: 1. Well adult exam - ICD9: V70.0, ICD10: Z00.00 (primary diagnosis) - Counseled on healthy diet and regular exercise - Discussed need and benefit for weight loss. BMI 43.58 kg/(m2) 2. Dyslipidemia - ICD9: 272.4, ICD10: E78.5 - Controlled - Continue current medications - Counseled on healthy diet and regular exercise 3. Vitamin D deficiency - ICD9: 268.9, ICD10: E55.9 Continue supplement 4. IFG (impaired fasting glucose) - ICD9: 790.21, ICD10: R73.01 Worsening, need for better diet control as d/w her today 5. Arthritis, multiple joint involvement - ICD9: 716.99, ICD10: M12.9 Chronic, stable, continue weight loss efforts. 6. Asthma, moderate persistent, well-controlled - ICD9: 493.90, ICD10: J45.40 - Moderate persistent asthma stable - Continue current medications - Avoidance of triggers recommended 7. Obesity, Class III, BMI 40-49.9 (morbid obesity) (HCC) - ICD9: 278.01, ICD10: E66.01 Weight decreasing - Behavioral intervention, - PSMF, - Eat well program, and - C (more content not included)... [facility] 04-14-2024 History of Present illness Narrative CC: Nancy Weldon is a 53 year old female who presents to the office for physical HPI: Overall she is doing well. Asthma, well controlled, taking Arnuity as prescribed, rare use of albuterol GERD, well controlled, use of prilosec as prescribed Is more physically active recently with her job at [employer] and is walking more. Has lost about 18-20 lbs in the last 4 months Asking for FMLA to help with her mother's appointments etc. PAST MEDICAL HISTORY Diagnosis Date Allergic rhinitis Arthritis Asthma GERD (gastroesophageal reflux disease) OA (osteoarthritis) of knee Dr. [facility] Vitamin D deficiency PAST SURGICAL HISTORY Procedure Laterality Date APPENDECTOMY 05/07/1979 APPENDECTOMY HX BACK SURGERY HX CARPAL TUNNEL 05/07/2010 bilateral wrist COLONOSCOPY FLX DX W/COLLJ SPEC WHEN PFRMD 12/27/2020 EXCIS LESION, MENISCUS OR CAPSULE, KNEE 05/28/13,08/2014 Dr. [facility], right knee medial meniscus repair HYSTEROSCOPY BX ENDOMETRIUM&/POLYPC W/WO D&C 08/16/2023 D&C w/ polyp resection and Liletta IUD insertion JOINT REPLACEMENT HX Right 08/09/2020 LOW BACK DISK SURGERY 05/07/2001 L4-herniated disc OSTECTOMY CALCANEUS SPUR W/WO PLNTAR FASCIAL RLS left foot TOTAL KNEE REPLACEMENT Right 08/09/2020 Dr. Willis Social History: Social History Tobacco Use Smoking status: Never Smokeless tobacco: Former Types: Snuff Tobacco comments: chew tobacco Vaping Use Vaping status: Never Used Substance Use Topics Alcohol use: No Drug use: No FAMILY HISTORY Problem Relation Age of Onset Asthma Mother Asthma Father Dementia Father other (heart disease) Father 64 Breast Cancer Maternal Grandmother Diabetes Paternal Grandmother Current Outpatient prescriptions: fluticasone furoate (ARNUITY ELLIPTA) 100 mcg/actuation inhaler Inhale 1 Puff as instructed once daily. Inhale one puff once daily. DO NOT CLICK OPEN UNTIL READY FOR DOSE omeprazole (PRILOSEC) 20 mg capsule Take 1 capsule by mouth once daily. levonorgestrel (LILETTA) 20.4 mcg/24 hrs (8 yrs) 52 mg IUD 1 Each by INTRAUTERINE route as directed. meloxicam (MOBIC) 15 mg tablet Take 1 tablet by mouth every afternoon. loratadine/pseudoephedrine (ALLERGY RELIEF-D, LORATADINE, ORAL) Take by mouth once daily. fgrmoeq-uaudcoqos-cfqvtf 180 167-65-200 mg tab Take by mouth once daily. cyanocobalamin, vitamin B-12, (VITAMIN B-12 ORAL) Take by mouth once daily. FLUTICASONE PROPIONATE (FLONASE NASAL) Use in the nose once daily. Two in each nostril daily Cholecalciferol, Vitamin D3, 25 mcg (1,000 unit) cap Take 1,000 Units by mouth twice daily. Takes 2,000 units daily multivitamins(DAILY MULTIPLE TAB) Take one(1) tablet daily. Allergies: ALLERGIES Allergen Reactions Voltaren [Diclofena* Rash gel ROS: See HPI PE: 04/14/24 1140 BP: 110/60 Pulse: 76 Resp: 16 Temp: 36.2 C (97.2 F) TempSrc: Left Tympanic Weight: 123 kg (271 lb 2.7 oz) Height: 168 cm (5' 6.14) Gen: A&O, NAD, non-toxic appearing, Pleasant, cooperative HEENT: NT/AC, PERRLA, EOMs intact b/l, nares clear and patent b/l, pharynx without erythema, exudate or lesions. Uvula midline. EACs without erythema or debris. TMs pearly ramirez with intact landmarks b/l. Neck: supple, No cervical LAD, no thyromegaly, no carotid bruits CV: RRR, normal S1 and S2, no murmurs, no gallops, no rubs, Pulses 2+ and symmetric in UE and LE b/l Lungs: normal respiratory effort, CTA b/l, no wheezing or rhonchi or rales Abd: soft, obese, NT, ND, +BS, no hepatosplenomegaly MS: FROM all 4 extremities Neuro: CN II-XII intact b/l, strength 5/5 b/l UE and LE, DTRs 2/4 UE and LE, sensation intact. Skin: warm, dry, intact, No rashes or lesions on exposed skin. No edema, normal pulses ASSESSMENT/PLAN: 1. Well adult exam - ICD9: V70.0, ICD10: Z00.00 (primary diagnosis) - Counseled on healthy diet and regular exercise - Discussed need and benefit for weight loss. BMI 43.58 kg/(m^2) 2. Dyslipidemia - ICD9: 272.4, ICD10: E78.5 - Controlled - Continue current medications - Counseled on healthy diet and regular exercise 3. Vitamin D deficiency - ICD9: 268.9, ICD10: E55.9 Continue supplement 4. IFG (impaired fasting glucose) - ICD9: 790.21, ICD10: R73.01 Worsening, need for better diet control as d/w her today 5. Arthritis, multiple joint involvement - ICD9: 716.99, ICD10: M12.9 Chronic, stable, continue weight loss efforts. 6. Asthma, moderate persistent, well-controlled - ICD9: 493.90, ICD10: J45.40 - Moderate persistent asthma stable - Continue current medications - Avoidance of triggers recommended 7. Obesity, Class III, BMI 40-49.9 (morbid obesity) (HCC) - ICD9: 278.01, ICD10: E66.01 Weight decreasing - Behavioral intervention, - PSMF, - Eat well program, and - Continue current medications 8. Gastroesophageal reflux disease without esophagitis - ICD9: 530.81, ICD10: K21.9 - Discussed lifestyle modifications including losing weight, limiting caffeine, no meals three hours before sleep, and head of bed elevation - Continue treatment with Prilosec 20 mg QD 9. Fatigue, unspecified type - ICD9: 780.79, ICD10: R53.83 Stable, chronic Cam Tripp DO To ER if develops chest pain, shortness of breath, or severe worsening of symptoms. Discussed risks, benefits, alternatives, and potential side effects of medications. Patient expressed understanding and agreed with the plan. Cam Tripp DO [address] [place] [address] documented in this encounter [facility] 03-19-2024 Telephone encounter Note The patient has been identified by name and date of : Yes Caregiver verified no other encounters exist for this prescription request: Yes Caregiver confirmed with patient/requestor that no other refills are due, in the near future, with this provider at this time: Yes The last office visit in the department: 04/10/2023 Does the patient have a future office visit with this provider/department: Yes 04/14/2024 Requested Prescriptions Pending Prescriptions Disp Refills fluticasone furoate (ARNUITY ELLIPTA) 100 mcg/actuation inhaler 1 Each 5 Sig: Inhale 1 Puff as instructed once daily. Inhale one puff once daily. DO NOT CLICK OPEN UNTIL READY FOR DOSE Lora Franz LPN March 19, 2024 8:56 AM [facility] 03-19-2024 Miscellaneous Notes The patient has been identified by name and date of : Yes Caregiver verified no other encounters exist for this prescription request: Yes Caregiver confirmed with patient/requestor that no other refills are due, in the near future, with this provider at this time: Yes The last office visit in the department: 04/10/2023 Does the patient have a future office visit with this provider/department: Yes 04/14/2024 Requested Prescriptions Pending Prescriptions Disp Refills fluticasone furoate (ARNUITY ELLIPTA) 100 mcg/actuation inhaler 1 Each 5 Sig: Inhale 1 Puff as instructed once daily. Inhale one puff once daily. DO NOT CLICK OPEN UNTIL READY FOR DOSE Lora Franz LPN March 19, 2024 8:56 AM documented in this encounter [facility] 02-25-2024 Telephone encounter Note Spoke with pt and information listed below given. Pt verbalizes understanding. Tangela Beltran LPN [facility] 02-25-2024 Miscellaneous Notes Spoke with pt and information listed below given. Pt verbalizes understanding. Tangela Beltran LPN Fasting labs ordered Armani Bhatt PA-C Pt. would like lab orders before upcoming appt.. documented in this encounter [facility] 02-25-2024 Telephone encounter Note Fasting labs ordered Armani Bhatt PA-C [facility] 02-22-2024 Telephone encounter Note Pt. would like lab orders before upcoming appt.. [facility] 01-29-2024 History of Present illness Narrative Radiology Service Progress Note PATIENT NAME: Nancy Weldon DATE OF SERVICE: January 29, 2024 TIME: 11:00 AM PATIENT IDENTITY VERIFICATION COMPLETED USING TWO (2) IDENTIFIERS: Name and Date of confirmed by patient verbally. FALL SCREENING: Has the patient had 2 falls in the last year or 1 fall with injury or currently using an Ambulatory Assistive Device (Walker, Cane, Wheelchair, Crutches, etc.)? No PATIENT GENDER DATA: Female. status: : No status: NO. PATIENT RELEVANT IMPLANT DATA REVIEWED: Not Applicable PATIENT PRESENTS WITH AN IMPLANTABLE OR ATTACHED JUMP ROLL OPERATOR: No RADIOLOGY DEPARTMENT: General X-ray: Exam(s) Completed: Spine X-Ray(s): Lumbar AP / LAT / L5-S1 PERIPHERAL IV DATA: Not applicable SIGNED BY: BUNNY Khan) January 29, 2024 11:00 AM documented in this encounter [facility] 01-29-2024 Note HNO ID: [id number] Author: JOHNNIE CARVAJAL RT(R) Service: Radiology Author Type: Technologist Type: Progress Notes Filed: 01/29/2024 11:06 Note Text: Radiology Service Progress Note PATIENT NAME: Nancy Weldon DATE OF SERVICE: January 29, 2024 TIME: 11:00 AM PATIENT IDENTITY VERIFICATION COMPLETED USING TWO (2) IDENTIFIERS: Name and Date of confirmed by patient verbally. FALL SCREENING: Has the patient had 2 falls in the last year or 1 fall with injury or currently using an Ambulatory Assistive Device (Walker, Cane, Wheelchair, Crutches, etc.)? No PATIENT GENDER DATA: Female. status: : No status: NO. PATIENT RELEVANT IMPLANT DATA REVIEWED: Not Applicable PATIENT PRESENTS WITH AN IMPLANTABLE OR ATTACHED JUMP ROLL OPERATOR: No RADIOLOGY DEPARTMENT: General X-ray: Exam(s) Completed: Spine X-Ray(s): Lumbar AP / LAT / L5-S1 PERIPHERAL IV DATA: Not applicable SIGNED BY: RT Bill(R) January 29, 2024 11:00 AM [facility] 01-29-2024 Note HNO ID: [id number] Author: ANAHY ALFRED PA Service: ? Author Type: Physician Manager Medical Device Type: Progress Notes Filed: 01/29/2024 11:18 Note Text: This note was created using NoteWriter. Subjective Nancy Weldon is a 53 year old female. HPI 53-year-old female presents for low back pain. Patient has been having left-sided low back pain for the past 3 days. She states that she has been walking a lot more at work and thinks she may have exacerbated her back pain. She also lifts things from time to time. She denies any specific fall or injury. No numbness or tingling in the legs. No pain radiating into the legs. She does have history of lumbar surgery in the past. She states she does not have any hardware in the back. She states occasionally she gets back pain flareups from time to time, but usually not this severe. She denies any loss of bowel or bladder function. No saddle anesthesia. No fever. She has been taking Tylenol [id number]-lft-[id number] which does take the edge off. She has not taken anything else for her pain. No other complaint. PAST MEDICAL HISTORY Diagnosis Date Allergic rhinitis Arthritis Asthma GERD (gastroesophageal reflux disease) OA (osteoarthritis) of knee Dr. [facility] Vitamin D deficiency PAST SURGICAL HISTORY Procedure Laterality Date APPENDECTOMY 05/07/1979 APPENDECTOMY HX BACK SURGERY HX CARPAL TUNNEL 05/07/2010 bilateral wrist COLONOSCOPY FLX DX W/COLLJ SPEC WHEN PFRMD 12/27/2020 EXCIS LESION, MENISCUS OR CAPSULE, KNEE 05/28/13,08/2014 Dr. [facility], right knee medial meniscus repair HYSTEROSCOPY BX ENDOMETRIUMAND/POLYPC W/WO DANDC 08/16/2023 DANDC w/ polyp resection and Liletta IUD insertion JOINT REPLACEMENT HX Right 08/09/2020 LOW BACK DISK SURGERY 05/07/2001 L4-herniated disc OSTECTOMY CALCANEUS SPUR W/WO PLNTAR FASCIAL RLS left foot TOTAL KNEE REPLACEMENT Right 08/09/2020 Dr. Willis ALLERGIES Voltaren [Diclofenac Sodium] MEDICATIONS omeprazole (PRILOSEC) 20 mg capsule Take 1 capsule by mouth once daily. fluticasone furoate (ARNUITY ELLIPTA) 100 mcg/actuation inhaler Inhale 1 Puff as instructed once daily. Inhale one puff once daily. DO NOT CLICK OPEN UNTIL READY FOR DOSE levonorgestrel (LILETTA) 20.4 mcg/24 hrs (8 yrs) 52 mg IUD 1 Each by INTRAUTERINE route as directed. meloxicam (MOBIC) 15 mg tablet Take 1 tablet by mouth every afternoon. loratadine/pseudoephedrine (ALLERGY RELIEF-D, LORATADINE, ORAL) Take by mouth once daily. qlwtgsz-ryeekbjkq-rkvwjp 180 167-65-200 mg tab Take by mouth once daily. cyanocobalamin, vitamin B-12, (VITAMIN B-12 ORAL) Take by mouth once daily. FLUTICASONE PROPIONATE (FLONASE NASAL) Use in the nose once daily. Two in each nostril daily Cholecalciferol, Vitamin D3, 25 mcg (1,000 unit) cap Take 1,000 Units by mouth twice daily. Takes 2,000 units daily multivitamins(DAILY MULTIPLE TAB) Take one(1) tablet daily. FAMILY HISTORY Problem Relation Age of Onset Asthma Mother Asthma Father Dementia Father other (heart disease) Father 64 Breast Cancer Maternal Grandmother Diabetes Paternal Grandmother Social History Tobacco Use Smoking status: Never Smokeless tobacco: Former Types: Snuff Tobacco comments: chew tobacco Vaping Use Vaping status: Never Used Substance Use Topics Alcohol use: No Drug use: No Review of Systems Constitutional: Negative for chills and fever. HENT: Negative for congestion, ear pain and sore throat. Respiratory: Negative for cough and shortness of breath. Cardiovascular: Negative for chest pain. Gastrointestinal: Negative for diarrhea and vomiting. Musculoskeletal: Positive for back pain. Objective BP 132/88 Pulse 72 Temp 36.2 ?C (97.2 ?F) Resp 16 Wt 128.2 kg (282 lb 10.1 oz) LMP 06/09/2023 (Within Weeks) SpO2 95% BMI 45.62 kg/m? Physical Exam Vitals and nursing note reviewed. Constitutional: General: She is not in acute distress. Appearance: Normal appearance. She is not toxic-appearing. Cardiovascular: Rate and Rhythm: Normal rate and regular rhythm. Pulmonary: Effort: Pulmonary effort is normal. Breath sounds: Normal breath sounds. Musculoskeletal: Lumbar back: Spasms and tenderness present. No bony tenderness. Negative right straight leg raise test and negative left straight leg raise test. Comments: Tenderness over left-sided lumbar paraspinal muscles. No midline tenderness. Negative seated straight leg raise. Skin: General: Skin is warm and dry. Neurological: Mental Status: She is alert. Assessment and Plan ASSESSMENT/PLAN: 1. Lumbar pain - ICD9: 724.2, ICD10: M54.50 - XR LUMBAR GENERAL 3V AP/LAT/I0-Z1-glfkioimrweb changes. -Rx for Robaxin. Rx prednisone Diagnosis and treatment plan were discussed and questions were answered to the patient's satisfaction. Pt acknowledged understanding of concepts and follow up plan. Specific signs and symptoms that would indicate the (more content not included)... [facility] 01-29-2024 History of Present illness Narrative This note was created using [employer]. Subjective Nancy Weldon is a 53 year old female. HPI 53-year-old female presents for low back pain. Patient has been having left-sided low back pain for the past 3 days. She states that she has been walking a lot more at work and thinks she may have exacerbated her back pain. She also lifts things from time to time. She denies any specific fall or injury. No numbness or tingling in the legs. No pain radiating into the legs. She does have history of lumbar surgery in the past. She states she does not have any hardware in the back. She states occasionally she gets back pain flareups from time to time, but usually not this severe. She denies any loss of bowel or bladder function. No saddle anesthesia. No fever. She has been taking Tylenol wwxq-xvj-mmvixmy which does take the edge off. She has not taken anything else for her pain. No other complaint. PAST MEDICAL HISTORY Diagnosis Date Allergic rhinitis Arthritis Asthma GERD (gastroesophageal reflux disease) OA (osteoarthritis) of knee Dr. [facility] Vitamin D deficiency PAST SURGICAL HISTORY Procedure Laterality Date APPENDECTOMY 05/07/1979 APPENDECTOMY HX BACK SURGERY HX CARPAL TUNNEL 05/07/2010 bilateral wrist COLONOSCOPY FLX DX W/COLLJ SPEC WHEN PFRMD 12/27/2020 EXCIS LESION, MENISCUS OR CAPSULE, KNEE 05/28/13,08/2014 Dr. [facility], right knee medial meniscus repair HYSTEROSCOPY BX ENDOMETRIUM&/POLYPC W/WO D&C 08/16/2023 D&C w/ polyp resection and Liletta IUD insertion JOINT REPLACEMENT HX Right 08/09/2020 LOW BACK DISK SURGERY 05/07/2001 L4-herniated disc OSTECTOMY CALCANEUS SPUR W/WO PLNTAR FASCIAL RLS left foot TOTAL KNEE REPLACEMENT Right 08/09/2020 Dr. Willis ALLERGIES Voltaren [Diclofenac Sodium] MEDICATIONS omeprazole (PRILOSEC) 20 mg capsule Take 1 capsule by mouth once daily. fluticasone furoate (ARNUITY ELLIPTA) 100 mcg/actuation inhaler Inhale 1 Puff as instructed once daily. Inhale one puff once daily. DO NOT CLICK OPEN UNTIL READY FOR DOSE levonorgestrel (LILETTA) 20.4 mcg/24 hrs (8 yrs) 52 mg IUD 1 Each by INTRAUTERINE route as directed. meloxicam (MOBIC) 15 mg tablet Take 1 tablet by mouth every afternoon. loratadine/pseudoephedrine (ALLERGY RELIEF-D, LORATADINE, ORAL) Take by mouth once daily. vcffyiy-ikmgagwge-utziwa 180 167-65-200 mg tab Take by mouth once daily. cyanocobalamin, vitamin B-12, (VITAMIN B-12 ORAL) Take by mouth once daily. FLUTICASONE PROPIONATE (FLONASE NASAL) Use in the nose once daily. Two in each nostril daily Cholecalciferol, Vitamin D3, 25 mcg (1,000 unit) cap Take 1,000 Units by mouth twice daily. Takes 2,000 units daily multivitamins(DAILY MULTIPLE TAB) Take one(1) tablet daily. FAMILY HISTORY Problem Relation Age of Onset Asthma Mother Asthma Father Dementia Father other (heart disease) Father 64 Breast Cancer Maternal Grandmother Diabetes Paternal Grandmother Social History Tobacco Use Smoking status: Never Smokeless tobacco: Former Types: Snuff Tobacco comments: chew tobacco Vaping Use Vaping status: Never Used Substance Use Topics Alcohol use: No Drug use: No Review of Systems Constitutional: Negative for chills and fever. HENT: Negative for congestion, ear pain and sore throat. Respiratory: Negative for cough and shortness of breath. Cardiovascular: Negative for chest pain. Gastrointestinal: Negative for diarrhea and vomiting. Musculoskeletal: Positive for back pain. Objective BP 132/88 Pulse 72 Temp 36.2 C (97.2 F) Resp 16 Wt 128.2 kg (282 lb 10.1 oz) LMP 06/09/2023 (Within Weeks) SpO2 95% BMI 45.62 kg/m Physical Exam Vitals and nursing note reviewed. Constitutional: General: She is not in acute distress. Appearance: Normal appearance. She is not toxic-appearing. Cardiovascular: Rate and Rhythm: Normal rate and regular rhythm. Pulmonary: Effort: Pulmonary effort is normal. Breath sounds: Normal breath sounds. Musculoskeletal: Lumbar back: Spasms and tenderness present. No bony tenderness. Negative right straight leg raise test and negative left straight leg raise test. Comments: Tenderness over left-sided lumbar paraspinal muscles. No midline tenderness. Negative seated straight leg raise. Skin: General: Skin is warm and dry. Neurological: Mental Status: She is alert. Assessment and Plan ASSESSMENT/PLAN: 1. Lumbar pain - ICD9: 724.2, ICD10: M54.50 - XR LUMBAR GENERAL 3V AP/LAT/Y2-N5-pktmuxtofdyh changes. -Rx for Robaxin. Rx prednisone Diagnosis and treatment plan were discussed and questions were answered to the patient's satisfaction. Pt acknowledged understanding of concepts and follow up plan. Specific signs and symptoms that would indicate the need for higher level of care were discussed in detail warranting prompt ER evaluation. ELEANOR Mtz documented in this encounter [facility] 01-14-2024 Telephone encounter Note Prescription Refill Information The patient has been identified by name and date of : Yes Caregiver verified no other encounters exist for this prescription request: Yes Caregiver confirmed with patient/requestor that no other refills are due, in the near future, with this provider at this time: Yes The last office visit in the department: 04/10/23 Does the patient have a future office visit with this provider/department: Yes 04/14/24 Requested Prescriptions Pending Prescriptions Disp Refills omeprazole (PRILOSEC) 20 mg capsule 30 capsule 11 Sig: Take 1 capsule by mouth once daily. Bushra Serna LPN January 14, 2024 3:20 PM [facility] 01-14-2024 Miscellaneous Notes Prescription Refill Information The patient has been identified by name and date of : Yes Caregiver verified no other encounters exist for this prescription request: Yes Caregiver confirmed with patient/requestor that no other refills are due, in the near future, with this provider at this time: Yes The last office visit in the department: 04/10/23 Does the patient have a future office visit with this provider/department: Yes 04/14/24 Requested Prescriptions Pending Prescriptions Disp Refills omeprazole (PRILOSEC) 20 mg capsule 30 capsule 11 Sig: Take 1 capsule by mouth once daily. Bushra Serna LPN January 14, 2024 3:20 PM documented in this encounter [facility] 11-15-2023 History of Present illness Narrative This note was created using NoteWriter. Subjective Nancy Weldon is a 53 year old female. 53 year old female with PMH asthma, GERD, dyslipidemia, presents for wound. Acute onset 2 to 3 weeks ago Left lower leg +redness + drainage States she was bit by insect she believes Denies fever or chills Denies swelling Denies numbness or tingling Has used topical ATB cream and band aid The history is provided by the patient. No computer language coder was used. Wound Check This is a new problem. The current episode started 1 to 4 weeks ago. The problem occurs constantly. The problem has been unchanged. Pertinent negatives include no abdominal pain, anorexia, arthralgias, change in bowel habit, chest pain, chills, congestion, coughing, diaphoresis, fatigue, fever, headaches, joint swelling, myalgias, nausea, neck pain, numbness, rash, sore throat, swollen glands, urinary symptoms, vertigo, visual change, vomiting or weakness. Nothing aggravates the symptoms. Treatments tried: Neosporin. The treatment provided no relief. PAST MEDICAL HISTORY Diagnosis Date Allergic rhinitis Arthritis Asthma GERD (gastroesophageal reflux disease) OA (osteoarthritis) of knee Dr. [facility] Vitamin D deficiency PAST SURGICAL HISTORY Procedure Laterality Date APPENDECTOMY 05/07/1979 APPENDECTOMY HX BACK SURGERY HX CARPAL TUNNEL 05/07/2010 bilateral wrist COLONOSCOPY FLX DX W/COLLJ SPEC WHEN PFRMD 12/27/2020 EXCIS LESION, MENISCUS OR CAPSULE, KNEE 05/28/13,08/2014 Dr[facility], right knee medial meniscus repair HYSTEROSCOPY BX ENDOMETRIUM&/POLYPC W/WO D&C 08/16/2023 D&C w/ polyp resection and Liletta IUD insertion JOINT REPLACEMENT HX Right 08/09/2020 LOW BACK DISK SURGERY 05/07/2001 L4-herniated disc OSTECTOMY CALCANEUS SPUR W/WO PLNTAR FASCIAL RLS left foot TOTAL KNEE REPLACEMENT Right 08/09/2020 Dr. Willis ALLERGIES Voltaren [Diclofenac Sodium] MEDICATIONS fluticasone furoate (ARNUITY ELLIPTA) 100 mcg/actuation inhaler Inhale 1 Puff as instructed once daily. Inhale one puff once daily. DO NOT CLICK OPEN UNTIL READY FOR DOSE levonorgestrel (LILETTA) 20.4 mcg/24 hrs (8 yrs) 52 mg IUD 1 Each by INTRAUTERINE route as directed. meloxicam (MOBIC) 15 mg tablet Take 1 tablet by mouth every afternoon. loratadine/pseudoephedrine (ALLERGY RELIEF-D, LORATADINE, ORAL) Take by mouth once daily. omeprazole (PRILOSEC) 20 mg capsule Take 1 capsule by mouth once daily. ecgotpg-wrmvnymby-rzevju 180 167-65-200 mg tab Take by mouth once daily. cyanocobalamin, vitamin B-12, (VITAMIN B-12 ORAL) Take by mouth once daily. FLUTICASONE PROPIONATE (FLONASE NASAL) Use in the nose once daily. Two in each nostril daily Cholecalciferol, Vitamin D3, 25 mcg (1,000 unit) cap Take 1,000 Units by mouth twice daily. Takes 2,000 units daily multivitamins(DAILY MULTIPLE TAB) Take one(1) tablet daily. doxycycline monohydrate 100 mg tablet Take 1 tablet by mouth two times a day for 7 days. FAMILY HISTORY Problem Relation Age of Onset Asthma Mother Asthma Father Dementia Father other (heart disease) Father 64 Breast Cancer Maternal Grandmother Diabetes Paternal Grandmother Social History Tobacco Use Smoking status: Never Smokeless tobacco: Former Types: Snuff Tobacco comments: chew tobacco Vaping Use Vaping Use: Never used Substance Use Topics Alcohol use: No Drug use: No Review of Systems Constitutional: Negative for chills, diaphoresis, fatigue and fever. HENT: Negative for congestion and sore throat. Respiratory: Negative for apnea, cough, choking and chest tightness. Cardiovascular: Negative for chest pain. Gastrointestinal: Negative for abdominal pain, anorexia, change in bowel habit, nausea and vomiting. Musculoskeletal: Negative for arthralgias, joint swelling, myalgias and neck pain. Skin: Positive for wound. Negative for color change and rash. Allergic/Immunologic: Negative for environmental allergies, food allergies and immunocompromised state. Neurological: Negative for dizziness, vertigo, facial asymmetry, weakness, numbness and headaches. Psychiatric/Behavioral: Negative for agitation and behavioral problems. Objective BP 122/72 Pulse 66 Temp 36.5 C (97.7 F) Resp 16 Wt 131.5 kg (289 lb 14.5 oz) LMP 06/09/2023 (Within Weeks) SpO2 97% BMI 46.79 kg/m Physical Exam Vitals and nursing note reviewed. Constitutional: General: She is not in acute distress. Appearance: Normal appearance. She is normal weight. She is not ill-appearing, toxic-appearing or diaphoretic. HENT: Head: Normocephalic and atraumatic. Right Ear: Ear canal and external ear normal. Left Ear: Ear canal and external ear normal. Nose: Nose normal. No congestion or rhinorrhea. Mouth/Throat: Mouth: Mucous membranes are moist. Pharynx: No oropharyngeal exudate or posterior oropharyngeal erythema. Eyes: General: Right eye: No discharge. Left eye: No discharge. Extraocular Movements: Extraocular movements intact. Conjunctiva/sclera: Conjunctivae normal. Pupils: Pupils are equal, round, and reactive to light. Cardiovascular: Rate and Rhythm: Normal rate and regular rhythm. Pulses: Normal pulses. Heart sounds: Normal heart sounds. No murmur heard. No friction rub. Pulmonary: Effort: Pulmonary effort is normal. No respiratory distress. Breath sounds: Normal breath sounds. No stridor. No wheezing, rhonchi or rales. Chest: Chest wall: No tenderness. Abdominal: General: Abdomen is flat. There is no distension. Palpations: Abdomen is soft. There is no mass. Tenderness: There is no abdominal tenderness. There is no right CVA tenderness, left CVA tenderness, guarding or rebound. Hernia: No hernia is present. Musculoskeletal: General: No swelling, tenderness, deformity or signs of injury. Normal range of motion. Cervical back: Normal range of motion and neck supple. No rigidity. Right lower leg: No edema. Left lower leg: No edema. Lymphadenopathy: Cervical: No cervical adenopathy. Skin: General: Skin is warm and dry. Coloration: Skin is not jaundiced or pale. Findings: Erythema present. No bruising, lesion or rash. Comments: Left lateral lower leg with < 1 cm circular like wound. +TTP No red streaking. No drainage noted. No crepitus No abscess No petechia Neurological: General: No focal deficit present. Mental Status: She is alert and oriented to person, place, and time. Cranial Nerves: No cranial nerve deficit. Sensory: No sensory deficit. Motor: No weakness. Coordination: Coordination normal. Gait: Gait normal. Psychiatric: Mood and Affect: Mood normal. Behavior: Behavior normal. Thought Content: Thought content normal. Judgment: Judgment normal. Assessment and Plan ASSESSMENT/PLAN: 1. Wound of left lower extremity, initial encounter - ICD9: 894.0, ICD10: S81.802A X 3 weeks Less than 1 cm irregular like NO red flags Will provided Doxycyline given reports of drainage (none observed here) Discussed wound care F/U with PCP for continued sx Lara Mehta APRN.GARRETT documented in this encounter [facility] 11-14-2023 Telephone encounter Note Noted, thank you. Ariadne Calderon APRN.RN NEUROSURGICAL [facility] Work Phone: 11-14-2023 Miscellaneous Notes Noted, thank you. Ariadne Calderon APRN.GARRETT Printed order, face sheet, insurance card copy and faxed to [phone] as requested. Notified patient left detailed message on voicemail. Mammogram is ordered. Please fax to [facility] and let pt know. Thank you, Yakelin Bailey APRN.GARRETT Pt calls to request an order for screening mammogram with brian be sent to [facility]. Bushra Serna LPN documented in this encounter [facility] 11-14-2023 Telephone encounter Note Printed order, face sheet, insurance card copy and faxed to [phone] as requested. Notified patient left detailed message on voicemail. [facility] 11-14-2023 Telephone encounter Note Mammogram is ordered. Please fax to [facility] and let pt know. Thank you, Yakelin Bailey APRN.GARRETT [facility] 11-13-2023 Telephone encounter Note Pt calls to request an order for screening mammogram with brian be sent to [facility]. Bushra Serna LPN [facility] 09-17-2023 Telephone encounter Note Pt calls to report which inhaler she has decided on that insurance will approve. Pt reports insurance will no longer cover Flovent. The name of the new inhaler is : Arnuity Elpt inhaler 100 mcg. Please review. Patient has been identified by name and date of : Yes Requested Prescriptions Pending Prescriptions Disp Refills fluticasone furoate (ARNUITY ELLIPTA) 100 mcg/actuation inhaler 1 Each 5 Sig: Inhale 1 Puff as instructed once daily. Inhale one puff once daily. DO NOT CLICK OPEN UNTIL READY FOR DOSE RX INSTRUCTIONS: Patient aware RX will be sent to pharmacy. No need to notify patient. Bushra Serna LPN [facility] 09-17-2023 Miscellaneous Notes Pt calls to report which inhaler she has decided on that insurance will approve. Pt reports insurance will no longer cover Flovent. The name of the new inhaler is : Arnuity Elpt inhaler 100 mcg. Please review. Patient has been identified by name and date of : Yes Requested Prescriptions Pending Prescriptions Disp Refills fluticasone furoate (ARNUITY ELLIPTA) 100 mcg/actuation inhaler 1 Each 5 Sig: Inhale 1 Puff as instructed once daily. Inhale one puff once daily. DO NOT CLICK OPEN UNTIL READY FOR DOSE RX INSTRUCTIONS: Patient aware RX will be sent to pharmacy. No need to notify patient. Bushra Serna LPN documented in this encounter [facility] 08-20-2023 Miscellaneous Notes Patient notified. Anna Boyer RN I hope she is doing well after the surgery. Her pathology was benign so that is great news. The endometrium was disordered and having the IUD will help correct this and I think will do a good job of helping her have less or no bleeding in the long run. Some irregular spotting the next 2-3 months is common. Have a great week and let us know if you need anything. Magui Scott MD documented in this encounter [facility] 08-20-2023 Miscellaneous Notes PA was completed. Did provide insurance with the info that pt and the provider did not want medicines changed as she is stable with current treatment plan. PA response was denied. Fluticasone prop HFA 110mcg does not meet criteria for coverage. Covered alternate may include pulmicort and arnuity ellipta. Called pt and all reviewed. She reports Sat she good the rx from [facility] with a good rx card. She thinks she will stay with this at this time. She will call back if anything else is needed or when she needs a new rx. Unable to complete PA electronically. Per pharmacy the brand name flovent is not longer available. This was covered in the past but the generic name fluticasone needs a PA. This was completed after several attempts to get the correct payor pa santaiew nancy weldon (Ruiz: [id number]) Fluticasone Propionate HFA 110MCG/ACT aerosol Outcome: N/A Created: August 17, 2023 Sent: August 17, 2023 Electronic PA requested for review. Please complete PA for her inhaler Cam rTipp DO Pt called in and reports she has new insurance and they won't pay for her Flovent anymore. She states the three they will pay for are Pulmicort 90 mcg, Arnuity Ellipta 100 mcg, and Asmanex hfa 100 mcg. She reports she hasn't had any issues with the one she is on, that's why they haven't changed it, she said she is willing to stay on that one. Please call and advise Pt. documented in this encounter [facility] 08-18-2023 Miscellaneous Notes Patient calling with request for medication/refill: Patient/caregiver requesting Albuterol prior authorizationbe called to [facility] pharmacy at [phone], Do you have enough medication to last until the office reopens? No. , and Have you contacted your pharmacy to ask for enough medication to get by until the office reopens? Yes, unable to fill due to needing prior authorization . Patient denies any new or worsening symptoms of which a provider is not aware: Yes. Needs prior authorization for inhaler. She will be out tonight. Reviewed telephone encounter from 08.17.23 and noted that prior authorization was complete though it can take a couple days to go through. Patient states she needs medicine this weekend. Spoke with hospital pharmacy technician, Hannah. Who stated they are out of fluticasone until at least Sunday. Advised to find a new pharmacy with the medication in stock, let hem know that she would like to use GoodRx coupon to pay for inhaler instead of going through insurance. verbalized understanding and will follow the plan. documented in this encounter [facility] 08-17-2023 History of Present illness Narrative Patient underwent hysteroscopy D&C with large polyp resection at [facility] on 08/16/2023 without complication. She also had a Liletta IUD inserted. Patient was discharged home with routine instructions. Pathology is pending. documented in this encounter [facility] 08-16-2023 Procedure note [facility] 08-01-2023 History and physi rosemarie note Note Date/Time August 01, 2023 11:47am [facility] Medical Records Department [address] [place] [place] [place] [address] History & Physical Exam 08/01/23 1146 MR#: [id number] Acct: [id number] Name: NANCY WELDON Rep #:[id number] : 1970 53 From: Magui Scott MD PCP: Dr. Cam Tripp, DO Status:[facility] Location: [place] [address] History and Physical Date of Admission: 08/16/23 HPI: The patient is a 53 year old female presenting for pre-operative visit. She is scheduled for hysteroscopy D&C with possible polyp resection and possibleIUD insertion, for thickened endometrium, postmenopausal bleeding on 08/16/23. Procedure discussed along with risks, benefits and complications. Other alternatives discussed for management. Consent form signed? Yes. ? ? PAST MEDICAL HISTORY PAST MEDICAL HISTORY Diagnosis Date ? Allergic rhinitis ? ? Arthritis ? ? Asthma ? ? GERD (gastroesophageal reflux disease) ? ? OA (osteoarthritis) of knee ? ? Dr. [facility] ? Vitamin D deficiency ? ? ? PAST SURGICAL HISTORY PAST SURGICAL HISTORY Procedure Laterality Date ? APPENDECTOMY ? 05/07/1979 ? APPENDECTOMY HX ? ? ? BACK SURGERY HX ? ? ? CARPAL TUNNEL ? 05/07/2010 ? bilateral wrist ? COLONOSCOPY FLX DX W/COLLJ SPEC WHEN PFRMD ? 12/27/2020 ? EXCIS LESION, MENISCUS OR CAPSULE, KNEE ? 05/28/13,08/2014 ? Dr. [facility], right knee medial meniscus repair ? JOINT REPLACEMENT HX Right 08/09/2020 ? LOW BACK DISK SURGERY ? 05/07/2001 ? L4-herniated disc ? OSTECTOMY CALCANEUS SPUR W/WO PLNTAR FASCIAL RLS ? ? ? left foot ? TOTAL KNEE REPLACEMENT Right 08/09/2020 ? Dr. Willis ? ? ? CURRENT MEDICATIONS Current Outpatient Medications Medication Sig Dispense Refill ? fluticasone (FLOVENT) 110 mcg/actuation inhaler Inhale 1 Puff as instructed two times a day. 1 Each 11 ? meloxicam (MOBIC) 15 mg tablet Take 1 tablet by mouth every afternoon. ? ? ? loratadine/pseudoephedrine (ALLERGY RELIEF-D, LORATADINE, ORAL) Take by mouth once daily. ? ? ? omeprazole (PRILOSEC) 20 mg capsule Take 1 capsule by mouth once daily. 30 capsule 11 ? iepixxf-dwelbjjmu-kgtblh 180 167-65-200 mg tab Take by mouth once daily. ? ? ? cyanocobalamin, vitamin B-12, (VITAMIN B-12 ORAL) Take by mouth once daily. ? ? ? FLUTICASONE PROPIONATE (FLONASE NASAL) Use in the nose once daily. Two in each nostril daily ? ? ? Cholecalciferol, Vitamin D3, 25 mcg (1,000 unit) cap Take 1,000 Units by mouth twice daily. Takes 2,000 units daily ? ? ? multivitamins(DAILY MULTIPLE TAB) Take one(1) tablet daily. ? 0 ? No current facility-administered medications for this visit. ? ? ALLERGIES: Voltaren [Diclofenac Sodium] ? PERSONAL HISTORY: SOCIAL HISTORY Social History ? Tobacco Use ? Smoking status: Never ? Smokeless tobacco: Former ? ? Types: Snuff ? Tobacco comments: ? ? chew tobacco Vaping Use ? Vaping Use: Never used Substance Use Topics ? Alcohol use: No ? Drug use: No ? FAMILY HISTORY: FAMILY HISTORY FAMILY HISTORY Problem Relation Age of Onset ? Asthma Mother ? ? Asthma Father ? ? Dementia Father ? ? other (heart disease) Father 64 ? Breast Cancer Maternal Grandmother ? ? Diabetes Paternal Grandmother ? ? ? REVIEW OF SYMPTOMS: GENERAL: denies fevers or chills ENDOCRINOLOGY: has not been on steroids Cardiology : denies palpitations or chest pain Respiratory: denies SOB or cough Hematology: denies history of prolonged bleeding or easy bruising or VTE Allergy: Denies history of personal or family history of allergy to anesthesia ? PHYSICAL EXAMINATION: ? VITALS: Blood pressure 138/92, pulse 75, resp. rate 14, height 5' 6 (1.676 m), weight 290 lb (131.5 kg), last menstrual period 06/09/2023, SpO2 95%. ? GENERAL: The patient is well nourished, well hydrated in no acute distress. , The patient is oriented to time, place, and person. NECK: Supple. No lynphadenopathy, normal thyroid, no thyromegaly. LUNGS: Clear to auscultation bilaterally. no wheezes, rhonchi or rales ? IMPRESSION: PMB, Thickened endometrium ? PLAN: The risks/benefits/alternatives and personal involved for the planned hysteroscopy D&c with possible polyp resection and levonorgestrel IUD insertion were reviewed with the patient. Her questions were answered to her satisfaction and she desires to proceed. Consent was signed. I reviewed with her postop instructions and expectations. ? ? I have reviewed and updated past medical and surgical history, medications and allergies Assessment & Plan Assessment/Plan (1) PMB (postmenopausal bleeding): (2) Endometrial polyp: 08/01/23 1147 <Electronically signed by Magui Scott MD> Cosigner Signature (if applicable): CC: Dr. Cam Tripp DO; Dr. Magui Scott MD~ Signed ADDENDUM by Dr. Magui Scott MD on 08/16/23 at 1432 Addendum UPDATE- I have seen the patient and performed any clinically relevant updates to the history and physical exam. 08/16/23 1432<Electronically signed by Magui Scott MD> Cosigner Signature (if applicable): cc: Dr. Cam Tripp DO; Dr. Magui Scott MD ~* Signed [facility] Work Phone: [phone]) 531-224703-04-2024 Miscellaneous Notes* Telephone Encounter - Lovely Bernabe RN - 07/09/2023 11:11 AM EST Called patient and she is unable to come before 3:00 tomorrow due to work schedule. She can do nextSunday morning or anytime next Sunday for an appointment otherwise needs 3:00 or later. She deniesscheduling conflicts for future procedure. Lovely Bernabe RN * Telephone Encounter - Magui Scott MD - 07/09/2023 10:44 AM EST I would recommend hysteroscopy D&C in [place]. I would be willing to work her in at noon tomorrow todiscuss if she can make that. Otherwise I will have to find an appointment soon for her. Find out if she has scheduling limitations as I would like to do preop at same time as consult. Dr. Thomas out this week and does not currently do surgeries. Magui Scott MD documented in this encounter[facility]03-[facility]24 History of Present illness Narrative* Lara Man RDMS - 07/09/2023 7:00 AM EST Radiology Service Progress Note PATIENT NAME: Nancy Weldon DATE OF SERVICE: July 09, 2023 TIME: 8:56 AM PATIENT IDENTITY VERIFICATION COMPLETED USING TWO (2) IDENTIFIERS: Name and Date of confirmedby patient verbally. FALL SCREENING: Has the patient had 2 falls in the last year or 1 fall with injury or currently using an Ambulatory Assistive Device (Walker, Cane, Wheelchair, Crutches, etc.)? No PATIENT GENDER DATA: Female. status: : No status: NO. PATIENT RELEVANT IMPLANT DATA REVIEWED: Not Applicable PATIENT PRESENTS WITH AN IMPLANTABLE OR ATTACHED JUMP ROLL OPERATOR: No RADIOLOGY DEPARTMENT: Ultrasound PERIPHERAL IV DATA: Not applicable SIGNED BY: Lara Man RDMS [facility] [[email or web address]] July 09, 2023 8:56 AM documented in this encounterSamaritan Hospital02-20-2024 Instructions* Patient Instructions* Nivia Tirado LPN - 06/26/2023 9:35 AM EST YOUR RECOVERY After your biopsy you may have: Vaginal bleeding (less than a normal menstrual period) Mild cramping Do NOT put anything in the vagina for 1 week after your endometrial biopsy. This includes: tampons douches and refraining from having sexual intercourse If you have any discomfort, you may take an over the counter pain medication (motrin, advil, ibuprofen, tylenol, etc). If this does not relieve your discomfort, contact the office. It is okay to wear a sanitary pad until the discharge and spotting stops. RISKS Although problems seldom occur with endometrial biopsies, there can be some complications. You may feel faint during and shortly after the procedure as well as have some bleeding after the procedure.There is also a risk of infection after the procedure. These complications are rare and can be easily treated. You should contact you doctor is you have any of the following: Heavy bleeding (more than your normal period) Bleeding with clots Severe abdominal pain Fever (more than 100.4F) Foul smelling vaginal discharge RESULTS We will have the results of your biopsy in 1-2 weeks. If you do not hear the results of your biopsyafter 2 weeks, please contact the office for the results. If you have any additional questions or concerns please do not hesitate to contact the office. documented in this encounterSam[facility]02-20-2024 History of Present illness Narrative* Dylan Thomas MD - 06/26/2023 8:44 AM EST Photographic Platemaker offered: Patient accepts, visit chaperoned by Maribel Tirado LPN. 53 year old who presents with complaints of post menopausal bleeding that began on 2/3 lasted 7 days resolved and returned later in the week. Total 15 days of bleeding and occ cramping. Last regu;lar menses 2-3 years ago.. LMP: Patient's last menstrual period was 06/09/2023 (within weeks). Heavy bleeding? No Intermenstrual bleeding/spotting? Yes Dysmenorrhea? Yes History of fibroids? No History of endometrial polyps? No Sexually active: No History of STDS: None Patient concerns for STD exposure: No. Pain with intercourse: No Postcoital bleeding: No Last Pap: 2022 normal HPV: negative History of abnormal pap: Yes PAST MEDICAL HISTORY Diagnosis Date Allergic rhinitis Arthritis Asthma GERD (gastroesophageal reflux disease) OA (osteoarthritis) of knee Dr. [facility] Vitamin D deficiency PAST SURGICAL HISTORY Procedure Laterality Date APPENDECTOMY 05/07/1979 APPENDECTOMY HX BACK SURGERY HX CARPAL TUNNEL 05/07/2010 bilateral wrist COLONOSCOPY FLX DX W/COLLJ SPEC WHEN PFRMD 12/27/2020 EXCIS LESION, MENISCUS OR CAPSULE, KNEE 05/28/13,08/2014 Dr. [facility], right knee medial meniscus repair JOINT REPLACEMENT HX Right 08/09/2020 LOW BACK DISK SURGERY 05/07/2001 L4-herniated disc OSTECTOMY CALCANEUS SPUR W/WO PLNTAR FASCIAL RLS left foot TOTAL KNEE REPLACEMENT Right 08/09/2020 Dr. Willis FAMILY HISTORY Problem Relation Age of Onset Asthma Mother Asthma Father Dementia Father other (heart disease) Father 64 Diabetes Paternal Grandmother Breast Cancer Maternal Grandmother SOCIAL HISTORY Social History Tobacco Use Smoking status: Never Smokeless tobacco: Former Types: Snuff Tobacco comments: chew tobacco Vaping Use Vaping Use: Never used Substance Use Topics Alcohol use: No Drug use: No REVIEW OF SYSTEMS No recent weight gain or weight loss. Abdomen: No abdominal pain, nausea, vomiting, diarrhea, or constipation. No bloating, early satiety, indigestion, or increased flatulence. Bladder: No dysuria, gross hematuria, urinary frequency, urinary urgency, or incontinence. EXAM: BP 100/58 Wt 286 lb 12.8 oz (130.1kg) LMP 06/09/2023 GENERAL: pleasant, female in no apparent distress ABDOMEN: soft, non-tender, no masses, and obese PELVIC: external genitalia normal, normal Bartholin's glands, urethra, Shickshinny's glands, no vulvar lesions, no cervical lesions, good vaginal support, physiologic discharge present, normal appearing perineal body and perianal region BIMANUAL: uterus normal size, shape and consistency, midposition, no adnexal masses, non-tender, nocervical motion tenderness, and nuliparous cervix RECTOVAGINAL: deferred. LABWORK n/a IMAGING Pelvic ultrasound ASSESSMENT: postmenopausal bleeding PLAN: Endometrial biopsy Pelvic ultrasound Dylan Thomas MD is a 53 year old who presents today for an endometrial biopsy for post menopausal bleeding. test: n/a UNIVERSAL PROTOCOL / SAFETY CHECKLIST Procedure to be Performed: pipelle endometrial biopsy Sign In: A Moment of CARE was completed. Personnel directly involved with the procedure wore the appropriate PPE (Personal Protective Equipment). Patient/Surrogate Stated/Verified: PATIENT VERIFIED(optional for EMERGENT procedures): Patient name, Date of , Relevant allergies, and The intended procedure Time Out Communication: Intended patient and procedure match the source documents. Consent documented and matches the intended procedure. Sign Out: SIGN OUT (optional for EMERGENT procedures): All specimen containers correctly labeled. All instruments, equipment, possible retained foreign bodies accounted for. No instruments, equipment or retained foreign bodies applicable. Nivia Tirado LPN PROCEDURE: EXTERNAL GENITALIA: Normal in appearance without lesions VAGINA: Normal in appearance without lesions BIOPSY: Speculum placed into the vagina with excellent visualization of the cervix. Cervix cleaned with betadine. Anterior lip of cervix grasped with single toothed tenaculum. Uterus sounded to 7 cm.Pipelle inserted into the uterus without difficulty and endometrial biopsy obtained. Specimen labeled and sent to pathology. Hemostasis achieved. Procedure Summary: Patient tolerated procedure well. ASSESSMENT: post menopausal bleeding PLAN: Specimens labeled and sent to Pathology. Will notify patient of results in 1-2 weeks. Follow up in 2-3 weeks to discuss results. Post-procedure instructions reviewed and written material given to thepatient. Dylan Thomas MD documented in this encounterSam[facility]01-14-2024 History of Present illness Narrative* Spring Melo APRN.[facility] - 05/20/2023 10:00 AM EST CC: Patient presents with: Sinus Problem: sinus pressure, drainage and eye drainage x couple weeks Pt reports sinus pressure and drainage for two weeks, denies any other symptoms. Has been around multiple sick exposures at her job at [employer]. HPI: Nancy Weldon is a 53 year old female who presents to the office with complaint of respiratory symptoms and sinus symptoms for 2 weeks. Symptoms are staying the same. Associated symptoms includes facial pain/pressure. Denies sore throat, swollen glands, headache, body aches, fever, ear pain, and dyspnea. Treatments tried include OTC cold medicine with partial relief of symptoms. Sick contacts: yes. History of asthma, frequent episodes of bronchitis, chronic bronchitis, bronchiectasis or COPD: No Smoker: No Seasonal/environmental allergies: No The ROS is otherwise negative. The patient's pmh, medications, allergies, and past visits are reviewed. PHYSICAL EXAM: BP 132/80 Pulse 92 Temp 36.2 C (97.2 F) Resp 16 Wt 127.5 kg (281 lb) LMP 10/19/2022 (Within Weeks) SpO2 96% BMI 45.35 kg/m General appearance: alert, cooperative, pleasant, in no acute distress Head: Normocephalic Eyes: PERRLA, EOM's intact, conjunctiva pink and moist, no icterus, sclera white, non-injected Ears: Right ear: External ear/canal- Normal, TM - clear with good landmarks. Left ear: External ear/canal- Normal, TM - visualization obscured by wax Nose: purulent rhinorrhea, sinus tenderness over frontal sinuses bilateral. Oropharynx:moist without lesions, No erythema, exudates or tonsillar hypertrophy. Neck:supple and no adenopathy Heart: Negative. RRR without obvious murmur, gallop, or rubs. No ectopy. Lungs: clear to auscultation, without rales or wheeze, good air exchange PAST MEDICAL HISTORY Diagnosis Date Allergic rhinitis Arthritis Asthma GERD (gastroesophageal reflux disease) OA (osteoarthritis) of knee Dr. [facility] Vitamin D deficiency PAST SURGICAL HISTORY Procedure Laterality Date APPENDECTOMY 05/07/1979 APPENDECTOMY HX BACK SURGERY HX CARPAL TUNNEL 05/07/2010 bilateral wrist COLONOSCOPY FLX DX W/COLLJ SPEC WHEN PFRMD 12/27/2020 EXCIS LESION, MENISCUS OR CAPSULE, KNEE 05/28/13,08/2014 Dr. [facility], right knee medial meniscus repair JOINT REPLACEMENT HX Right 08/09/2020 LOW BACK DISK SURGERY 05/07/2001 L4-herniated disc OSTECTOMY CALCANEUS SPUR W/WO PLNTAR FASCIAL RLS left foot TOTAL KNEE REPLACEMENT Right 08/09/2020 Dr. Willis ALLERGIES Voltaren [Diclofenac Sodium] MEDICATIONS fluticasone (FLOVENT) 110 mcg/actuation inhaler Inhale 1 Puff as instructed two times a day. meloxicam (MOBIC) 15 mg tablet Take 1 tablet by mouth every afternoon. loratadine/pseudoephedrine (ALLERGY RELIEF-D, LORATADINE, ORAL) Take by mouth once daily. omeprazole (PRILOSEC) 20 mg capsule Take 1 capsule by mouth once daily. ycsrsoc-elxnzwaqs-oplkrw 180 167-65-200 mg tab Take by mouth once daily. cyanocobalamin, vitamin B-12, (VITAMIN B-12 ORAL) Take by mouth once daily. FLUTICASONE PROPIONATE (FLONASE NASAL) Use in the nose once daily. Two in each nostril daily Cholecalciferol, Vitamin D3, 25 mcg (1,000 unit) cap Take 1,000 Units by mouth twice daily. Takes 2,000 units daily multivitamins(DAILY MULTIPLE TAB) Take one(1) tablet daily. amoxicillin-clavulanate potassium (AUGMENTIN) 875-125 mg per tablet Take 1 tablet by mouth two times a day for 7 days. FAMILY HISTORY Problem Relation Age of Onset Asthma Mother Asthma Father Dementia Father other (heart disease) Father 64 Diabetes Paternal Grandmother Breast Cancer Maternal Grandmother Social History Tobacco Use Smoking status: Never Smokeless tobacco: Former Types: Snuff Tobacco comments: chew tobacco Vaping Use Vaping Use: Never used Substance Use Topics Alcohol use: No Drug use: No DATA REVIEWED: No new labs ASSESSMENT/PLAN: 1. Rhinosinusitis - ICD9: 473.9, ICD10: J32.9 - Will begin treatment with as per antibiotic as written, see orders - Supportive care with plenty of fluids, rest, and analgesia prn. - AMOXICILLIN 875 MG-POTASSIUM CLAVULANATE 125 MG TABLET Prescription instructions reviewed with patient. Potential red flag symptoms discussed with the patient. Reviewed appropriate action plan to take if red flag symptoms occur. Patient agreeable to treatment plan. Maday Louis Supervising provider was present and guided the care of the patient for the entire session on this date. All documentation was reviewed and agreed upon. Spring Melo APRN.[facility] documented in this encounterSam[facility]12-05-2023 History of Present illness Narrative* Cam Tripp, - 04/10/2023 2:25 PM EST CC: Nancy Weldon is a 52 year old female who presents to the office for physical HPI: Asthma, stable, use of Flovent regularly and prn use of albuterol. No recent flare ups or wheezing or recent URI GERD, stable, use of prilosec 20 mg a day, no new symptoms Arthritis, stable. No recent knee increased pain PAST MEDICAL HISTORY Diagnosis Date Allergic rhinitis Arthritis Asthma GERD (gastroesophageal reflux disease) OA (osteoarthritis) of knee Dr. [facility] Vitamin D deficiency PAST SURGICAL HISTORY Procedure Laterality Date APPENDECTOMY 05/07/1979 APPENDECTOMY HX BACK SURGERY HX CARPAL TUNNEL 05/07/2010 bilateral wrist COLONOSCOPY FLX DX W/COLLJ SPEC WHEN PFRMD 12/27/2020 EXCIS LESION, MENISCUS OR CAPSULE, KNEE 05/28/13,08/2014 Dr. [facility], right knee medial meniscus repair JOINT REPLACEMENT HX Right 08/09/2020 LOW BACK DISK SURGERY 05/07/2001 L4-herniated disc OSTECTOMY CALCANEUS SPUR W/WO PLNTAR FASCIAL RLS left foot TOTAL KNEE REPLACEMENT Right 08/09/2020 Dr. Willis Social History: Social History Tobacco Use Smoking status: Never Smokeless tobacco: Former Types: Snuff Tobacco comments: chew tobacco Vaping Use Vaping Use: Never used Substance Use Topics Alcohol use: No Drug use: No FAMILY HISTORY Problem Relation Age of Onset Asthma Mother Asthma Father Dementia Father other (heart disease) Father 64 Diabetes Paternal Grandmother Breast Cancer Maternal Grandmother Current Outpatient prescriptions: fluticasone (FLOVENT) 110 mcg/actuation inhaler Inhale 1 Puff as instructed two times a day. meloxicam (MOBIC) 15 mg tablet Take 1 tablet by mouth every afternoon. loratadine/pseudoephedrine (ALLERGY RELIEF-D, LORATADINE, ORAL) Take by mouth once daily. omeprazole (PRILOSEC) 20 mg capsule Take 1 capsule by mouth once daily. taicunc-hjwfkekqi-tekazl 180 167-65-200 mg tab Take by mouth once daily. cyanocobalamin, vitamin B-12, (VITAMIN B-12 ORAL) Take by mouth once daily. FLUTICASONE PROPIONATE (FLONASE NASAL) Use in the nose once daily. Two in each nostril daily Cholecalciferol, Vitamin D3, 25 mcg (1,000 unit) cap Take 1,000 Units by mouth twice daily. Takes 2,000 units daily multivitamins(DAILY MULTIPLE TAB) Take one(1) tablet daily. Allergies: ALLERGIES Allergen Reactions Voltaren [Diclofena* Rash gel ROS: See HPI PE: 04/10/23 1046 BP: 124/74 BP Site: Left Arm BP Position: Sitting BP Cuff Size: Large Adult Pulse: 76 Resp: 14 Temp: 36.1 C (97 F) SpO2: 96% Weight: 128.4 kg (283 lb) Height: 167.6 cm (5' 6) Gen: A&O, NAD, non-toxic appearing, Pleasant, cooperative HEENT: NT/AC, wearing glasses, PERRLA, EOMs intact b/l, nares clear and patent b/l, pharynx withouterythema, exudate or lesions. Uvula midline. MMM, EACs without erythema or debris. TMs pearly ramirez with intact landmarks b/l. Neck: supple, No cervical LAD, no thyromegaly, no carotid bruits CV: RRR, normal S1 and S2, no murmurs, no gallops, no rubs, Pulses 2+ and symmetric in UE and LE b/l Lungs: normal respiratory effort, CTA b/l, no wheezing or rhonchi or rales Abd: soft, obese, NT, ND, +BS, no hepatosplenomegaly MS: FROM all 4 extremities, arthritis changes of joints Neuro: CN II-XII intact b/l, strength 5/5 b/l UE and LE, DTRs 2/4 UE and LE, sensation intact. Skin: warm, dry, intact, No rashes or lesions on exposed skin. ASSESSMENT/PLAN: 1. Well adult exam - ICD9: V70.0, ICD10: Z00.00 (primary diagnosis) - Counseled on healthy diet and regular exercise - Calcium intake with supplements or by diet of 1000 mg/day for under 50, 1200- 1500 mg/day for 50+ - Discussed need and benefit for weight loss. BMI 45.68 kg/(m^2) 2. Asthma, moderate persistent, well-controlled - ICD9: 493.90, ICD10: J45.40 - Moderate persistent asthma stable - Continue current medications - Avoidance of triggers recommended - FLUTICASONE PROPIONATE 110 MCG/ACTUATION HFA AEROSOL INHALER 3. Need for influenza vaccination - ICD9: V04.81, ICD10: Z23 - INFLUENZA VACCINE, AGE 6 MO - 64 YR, QUADRIVALENT (AFLURIA, FLULAVAL, FLUZONE) 4. Need for pneumococcal 20-valent conjugate vaccination - ICD9: V03.82, ICD10: Z23 - PNEUMOCOCCAL VACCINE (PREVNAR 20) 5. Arthritis, multiple joint involvement - ICD9: 716.99, ICD10: M12.9 stable 6. IFG (impaired fasting glucose) - ICD9: 790.21, ICD10: R73.01 stable 7. Dyslipidemia - ICD9: 272.4, ICD10: E78.5 - Controlled - Continue current medications - Counseled on healthy diet and regular exercise 8. Obesity, Class III, BMI 40-49.9 (morbid obesity) (HCC) - ICD9: 278.01, ICD10: E66.01 Stable - Eat well program and - Continue current medications Cam Tripp DO To ER if develops chest pain, shortness of breath, or severe worsening of symptoms. Discussed risks, benefits, alternatives, and potential side effects of medications. Patient expressed understanding and agreed with the plan. Cam Tripp DO [address] [place] [address] documented in this encounterSam[facility]itan Hospital10-05-2023 History of Present illness Narrative* Ann Rivera APRN.RN NEUROSURGICAL - 02/08/2023 9:14 AM EDT Photographic Platemaker offered: Patient declines. is a 52 year old who presents for an annual gynecologic exam without complaints. Postmenopausal: LMP 10/2022 maybe 2/yr HRT use: No. Last Pap: 02/17/2022 abnormal, ASCUS & endometrial cells HPV: 02/13/2022 negative History of abnormal pap: Yes Last mammogram: 2022 normal History of abnormal mammogram: No Sexually active: No OB History T0 L0 SAB0 IAB0 Ectopic0 Multiple0 Live Births0 Police [employer] History LMP: 01/30/2022 (Within Weeks), Having periods Age at Menarche: 11 Age at First : Age at Menopause: Police Dis[employer] History Comments: Sexual Activity: Not Currently; No partner data on record Contraception: No contraception data on record PAST MEDICAL HISTORY Diagnosis Date Allergic rhinitis Arthritis Asthma GERD (gastroesophageal reflux disease) OA (osteoarthritis) of knee Dr. [facility] Vitamin D deficiency PAST SURGICAL HISTORY Procedure Laterality Date APPENDECTOMY 05/07/1979 APPENDECTOMY HX BACK SURGERY HX CARPAL TUNNEL 05/07/2010 bilateral wrist COLONOSCOPY FLX DX W/COLLJ SPEC WHEN PFRMD 12/27/2020 EXCIS LESION, MENISCUS OR CAPSULE, KNEE 05/28/13,08/2014 Dr[facility], right knee medial meniscus repair JOINT REPLACEMENT HX Right 08/09/2020 LOW BACK DISK SURGERY 05/07/2001 L4-herniated disc OSTECTOMY CALCANEUS SPUR W/WO PLNTAR FASCIAL RLS left foot TOTAL KNEE REPLACEMENT Right 08/09/2020 Dr. Willis FAMILY HISTORY Problem Relation Age of Onset Asthma Mother Asthma Father Dementia Father other (heart disease) Father 64 Diabetes Paternal Grandmother Breast Cancer Maternal Grandmother SOCIAL HISTORY Social History Tobacco Use Smoking status: Never Smokeless tobacco: Former Types: Snuff Tobacco comments: chew tobacco Vaping Use Vaping Use: Never used Substance Use Topics Alcohol use: No Drug use: No REVIEW OF SYSTEMS Abdomen: No abdominal pain, nausea, vomiting, diarrhea, or constipation. No bloating, early satiety, indigestion, or increased flatulence. Bladder: No dysuria, gross hematuria, urinary frequency, urinary urgency, or incontinence Breast: No breast lumps, nipple d/c, overlying skin changes, redness or skin retraction Allergies and current medication updated:Yes EXAM: LMP 01/30/2022 GENERAL: pleasant, female in no apparent distress HEENT: Normocephalic, atraumatic, mucus membranes moist, and no lesions NECK: Supple, full range of motion, no adenopathy, and thyroid normal DERMATOLOGY: Normal, without lesions, non-icteric, and non-hirsute BREAST: soft, non-tender, symmetric, no dominant mass, normal nipple-areolar complex, no lymphadenopathy, and no nipple discharge CHEST: Normal inspiratory effort ABDOMEN: soft, non-tender, and no masses PELVIC: external genitalia normal, normal Bartholin's glands, urethra, Shickshinny's glands, no vulvar lesions, no cervical lesions, good vaginal support, physiologic discharge present, normal appearing perineal body and perianal region BIMANUAL: uterus normal size, shape and consistency, no adnexal masses, and non-tender RECTOVAGINAL: deferred. NEURO: alert and oriented x3,exam grossly non-focal EXTREMITIES: normal ASSESSMENT/PLAN: 1) Health maintenance: Pap done with HPV. Mammogram up to date Nutrition, exercise and routine health maintenance exams reviewed. Calcium/Vitamin D supplementation information provided. Colon cancer screening: up to date with screening 2) Follow up one year or sooner as needed Ann Rivera APRN.RN NEUROSURGICAL documented in this encounterSamaritan Hospital08-29-2023 Miscellaneous Notes* Telephone Encounter - Olga Tenorio - 01/02/2023 8:33 AM EDT Patient has been identified by name and date of : Yes Last office visit in this department: 10/06/2022 RX INSTRUCTIONS: Patient aware RX will be sent to pharmacy. No need to notify patient. Patient phones requesting refills as follows: Requested Prescriptions Pending Prescriptions Disp Refills omeprazole (PRILOSEC) 20 mg capsule 30 capsule 11 Sig: Take 1 capsule by mouth once daily. Please review and advise. Olga Dickens Pss documented in this encounterSamaritan Hospital08-09-2023 History of Present illness Narrative* Yolanda Sepulveda LPN - 12/13/2022 11:22 AM EDT Scan on 12/13/2022 9:51 AM by Provider, External, PACharlineC: Bone Density documented in this [facility]07-21-2023 Miscellaneous Notes* Telephone Encounter - Cam Tripp DO - 11/24/2022 1:15 PM EDT Order printed for ajith Tripp DO documented in this [facility]07-17-2023 Miscellaneous Notes* Telephone Encounter - Tangela Beltran LPN - 11/20/2022 10:25 AM EDT Pt called to have orders fax to [facility] for her Bone Density and Mammogram. Faxed orders to [phone]. Done. Tangela Beltran LPN documented in this encounterSamaritan Hospital06-02-2023 History of Present illness Narrative* Cam Tripp, DO - 10/06/2022 12:50 PM EDT Depression screening tool completed and reviewed. Based on score and interview, patient is not at risk for depression. Screening tool discussed with patient, and I recommended no further interventionat this time CC: Nancy Weldon is a 52 year old female who presents to the office for follow up HPI: Asthma, stable, using her inhaler Flovent as prescribed, no recent wheezing or night time cough or dyspnea. Rare use of albuterol Right shoulder >left shoulder pain, seeing PHYSICAL THERAPY and has been seen by Orthopedics, not really improved with steroid injection, hasn't had MRI, only xray, is impairing her mobility at work and at home with outdoor work- restricted range of motion due to pain IFG, diet controlled. PAST MEDICAL HISTORY Diagnosis Date Allergic rhinitis Arthritis Asthma GERD (gastroesophageal reflux disease) OA (osteoarthritis) of knee Dr. [facility] Vitamin D deficiency PAST SURGICAL HISTORY Procedure Laterality Date APPENDECTOMY 05/07/1979 APPENDECTOMY HX BACK SURGERY HX CARPAL TUNNEL 05/07/2010 bilateral wrist COLONOSCOPY FLX DX W/COLLJ SPEC WHEN PFRMD 12/27/2020 EXCIS LESION, MENISCUS OR CAPSULE, KNEE 05/28/13,08/2014 Dr[facility], right knee medial meniscus repair JOINT REPLACEMENT HX Right 08/09/2020 LOW BACK DISK SURGERY 05/07/2001 L4-herniated disc OSTECTOMY CALCANEUS SPUR W/WO PLNTAR FASCIAL RLS left foot TOTAL KNEE REPLACEMENT Right 08/09/2020 Dr. Willis Current Outpatient Medications Medication Sig omeprazole (PRILOSEC) 20 mg capsule Take 1 capsule by mouth once daily. fluticasone (FLOVENT) 110 mcg/actuation inhaler Inhale 1 Puff as instructed twice daily. gluc garcia/chondro garcia A/vit C/Mn (GLUCOSAMINE 1500 COMPLEX ORAL) Take by mouth once daily. qnmmtxu-dsdujohpx-acnwus 180 167-65-200 mg tab Take by mouth once daily. cyanocobalamin, vitamin B-12, (VITAMIN B-12 ORAL) Take by mouth once daily. FLUTICASONE PROPIONATE (FLONASE NASAL) Use in the nose once daily. Two in each nostril daily Cholecalciferol, Vitamin D3, 25 mcg (1,000 unit) cap Take 1,000 Units by mouth twice daily. Takes 2,000 units daily multivitamins(DAILY MULTIPLE TAB) Take one(1) tablet daily. nabumetone (RELAFEN) 750 mg tablet Take 750 mg by mouth twice daily. TURMERIC ORAL Take by mouth once daily. No current facility-administered medications for this visit. ALLERGIES Allergen Reactions Bandaids [Other] Rash Voltaren [Diclofena* Rash gel Social History Tobacco Use Smoking status: Never Smokeless tobacco: Former Types: Snuff Tobacco comments: chew tobacco Vaping Use Vaping Use: Never used Substance Use Topics Alcohol use: No Drug use: No ROS: See HPI PE: BP 122/82 Pulse 64 Temp (Src) 96.4 (Right Tympanic) Resp 16 Wt 283 lb (128.4kg) LMP 01/30/2022 Gen: A&OX3, NAD, non-toxic appearing HEENT: PERRLA, EOMs intact b/l, nares without drainage, pharynx without erythema, exudate, lesions,or drainage. Uvula midline. Neck: No LAD, no thyromegaly, no meningismus. CV: RRR, no murmur Lungs: CTA b/l, no wheezing Skin:see below Central obesity Reduced ROM right shoulder No edema legs + varicose veins Actinic keratosis above left upper lip Arthritis changes ASSESSMENT/PLAN: 1. IFG (impaired fasting glucose) - ICD9: 790.21, ICD10: R73.01 (primary diagnosis) - diet controlled, recheck labs, need for weight loss - HGB A1C 2. Screening for osteoporosis - ICD9: V82.81, ICD10: Z13.820 - DXA-AXIAL SKELETON 3. Encounter for screening mammogram for malignant neoplasm of breast - ICD9: V76.12, ICD10: Z12.31 - Set up for mammogram, yearly mammogram recommended - Encouraged monthly BSE - ANTONIA SCREENING W BRIAN 4. Asthma, moderate persistent, well-controlled - ICD9: 493.90, ICD10: J45.40 - Moderate persistent asthma stable - Continue current medications - Avoidance of triggers recommended - Asthma Action Plan reviewed 5. Dyslipidemia - ICD9: 272.4, ICD10: E78.5 - Controlled - Continue current medications - Counseled on healthy diet and regular exercise - COMP METABOLIC PANEL - CBC - LIPID PANEL BASIC 6. Arthritis, multiple joint involvement - ICD9: 716.99, ICD10: M12.9 - f/u with orthopedics regarding shoulder pain 7. Obesity, Class III, BMI 40-49.9 (morbid obesity) (HCC) - ICD9: 278.01, ICD10: E66.01 Stable - Behavioral intervention and - Eat well program 8. Well adult exam - ICD9: V70.0, ICD10: Z00.00 - Counseled on healthy diet and regular exercise - Calcium intake with supplements or by diet of 1000 mg/day for under 50, 1200- 1500 mg/day for 50+ - HGB A1C - COMP METABOLIC PANEL - CBC - LIPID PANEL BASIC - TSH BLD - VITAMIN D 25 HYDROXY - VITAMIN B12 BLOOD 9. Vitamin D deficiency - ICD9: 268.9, ICD10: E55.9 - VITAMIN D 25 HYDROXY 10. Fatigue, unspecified type - ICD9: 780.79, ICD10: R53.83 - COMP METABOLIC PANEL - CBC 11. Actinic keratosis - ICD9: 702.0, ICD10: L57.0 Treated x 1 in office today with cryotherapy, tolerated well. Aware of care after treatment at home Cam Tripp DO Return if no improvement. Follow up with Cam Tripp DO. To ER if develops chest pain, shortness of breath Discussed risks, benefits, alternatives, and potential side effects of medications. Patient/Guardian expressed understanding and agreed with the plan. See patient instructions. Cam Tripp DO [address] [place] [address] . documented in this encounter[facility]10-[facility]22 Instructions* Patient Instructions* Spring Melo APRN.RN NEUROSURGICAL - 02/22/2022 5:06 PM EDT - RICE therapy - see patient instructions for further recommendations. - F/U with PCP in 5-7 days or before if worse. - Discussed Red Flag signs and when to go to ER. - Reviewed plan of care and DC papers with patient. Verbalized understanding. documented in this encounterSamaritan Hospital10-19-2022 History of Present illness Narrative* Spring Mleo APRN.GARRETT - 02/22/2022 4:14 PM EDT Images from the original note were not included. Subjective Patient came in with complaints of left clavicle pain. Patient says she was helping her brother move some small outdoor plants. Patient says she does not remember injuring herself. Patient says she just has an ache in the area of her left clavicle says is about a 7. The history is provided by the patient. No computer language coder was used. Trauma Review of Systems Constitutional: Negative. Skin: Negative. Objective Physical Exam Constitutional: Appearance: Normal appearance. Neck: Comments: Patient's pain is located in the area marked above. Patient has full range of motion of her arms she does says it hurts patient also has full range of motion of her neck. No deformities noted. Pulmonary: Effort: Pulmonary effort is normal. Neurological: Mental Status: She is alert. PAST MEDICAL HISTORY Diagnosis Date Allergic rhinitis Arthritis Asthma GERD (gastroesophageal reflux disease) OA (osteoarthritis) of knee Dr. [facility] Vitamin D deficiency PAST SURGICAL HISTORY Procedure Laterality Date APPENDECTOMY 05/07/1979 APPENDECTOMY HX BACK SURGERY HX CARPAL TUNNEL 05/07/2010 bilateral wrist COLONOSCOPY FLX DX W/COLLJ SPEC WHEN PFRMD 12/27/2020 EXCIS LESION, MENISCUS OR CAPSULE, KNEE 05/28/13,08/2014 Dr. [facility], right knee medial meniscus repair JOINT REPLACEMENT HX Right 08/09/2020 LOW BACK DISK SURGERY 05/07/2001 L4-herniated disc OSTECTOMY CALCANEUS SPUR W/WO PLNTAR FASCIAL RLS left foot TOTAL KNEE REPLACEMENT Right 08/09/2020 Dr. Willis ALLERGIES Bandaids [Other] and Voltaren [Diclofenac Sodium] MEDICATIONS nabumetone (RELAFEN) 750 mg tablet Take 750 mg by mouth twice daily. TURMERIC ORAL Take by mouth once daily. omeprazole (PRILOSEC) 20 mg capsule Take 1 capsule by mouth once daily. fluticasone (FLOVENT) 110 mcg/actuation inhaler Inhale 1 Puff as instructed twice daily. gluc garcia/chondro garcia A/vit C/Mn (GLUCOSAMINE 1500 COMPLEX ORAL) Take by mouth once daily. plssxjk-azniypnwc-qhtdfa 180 167-65-200 mg tab Take by mouth once daily. cyanocobalamin, vitamin B-12, (VITAMIN B-12 ORAL) Take by mouth once daily. FLUTICASONE PROPIONATE (FLONASE NASAL) Use in the nose once daily. Two in each nostril daily Cholecalciferol, Vitamin D3, 25 mcg (1,000 unit) cap Take 1,000 Units by mouth twice daily. Takes 2,000 units daily multivitamins(DAILY MULTIPLE TAB) Take one(1) tablet daily. FAMILY HISTORY Problem Relation Age of Onset Asthma Mother Asthma Father Dementia Father other (heart disease) Father 64 Diabetes Paternal Grandmother Breast Cancer Maternal Grandmother Social History Tobacco Use Smoking status: Never Smokeless tobacco: Former Types: Snuff Tobacco comments: chew tobacco Vaping Use Vaping Use: Never used Substance Use Topics Alcohol use: No Drug use: No ASSESSMENT/PLAN: 1. Pain - ICD9: 780.96, ICD10: R52 - XR CLAVICLE 2V LEFT * * * * Physician Interpretation * * * * EXAM TITLE: XR CLAVICLE 2V LT EXAM DATE/TIME: 02/22/2022 4:47 PM COMPARISON: None. CLINICAL INDICATION/HISTORY: Left clavicle pain. TECHNIQUE: AP and axial views of the left clavicle are presented FINDINGS: No acute fracture seen in the left clavicle. There is acromioclavicular joint space narrowing, with associated osteophyte formation. There appear to be supraspinatus tendon calcifications. There is no significant soft tissue swelling. IMPRESSION IMPRESSION: No acute radiographic abnormalities seen in the left clavicle. Degenerative changes in the left shoulder as described above. Retail Management Keyholder: NITIN Transcribe Date/Time: Feb 22 2022 4:50P Dictated by : DONIS OLMEDO MD 's time instructed to rest ice alternate Tylenol and ibuprofen and give it another week or so to see if it starts feeling any better. If pain persist patient is to follow-up with primary care patientwas okay with this care plan. Spring Melo APRN.CNP documented in this encounterSam[facility] Hospital10-18-2022 Instructions* Patient Instructions* Ann Rivera APRN.CNP - 02/21/2022 11:36 AM EDT YOUR RECOVERY After your biopsy you may have: Vaginal bleeding (less than a normal menstrual period) Mild cramping Do NOT put anything in the vagina for 1 week after your endometrial biopsy. This includes: tampons douches and refraining from having sexual intercourse If you have any discomfort, you may take an over the counter pain medication (motrin, advil, ibuprofen, tylenol, etc). If this does not relieve your discomfort, contact the office. It is okay to wear a sanitary pad until the discharge and spotting stops. RISKS Although problems seldom occur with endometrial biopsies, there can be some complications. You may feel faint during and shortly after the procedure as well as have some bleeding after the procedure.There is also a risk of infection after the procedure. These complications are rare and can be easily treated. You should contact you doctor is you have any of the following: Heavy bleeding (more than your normal period) Bleeding with clots Severe abdominal pain Fever (more than 100.4F) Foul smelling vaginal discharge RESULTS We will have the results of your biopsy in 1-2 weeks. If you do not hear the results of your biopsyafter 2 weeks, please contact the office for the results. If you have any additional questions or concerns please do not hesitate to contact the office. documented in this encounterSam[facility] Hospital10-18-2022 History of Present illness Narrative* Ann Rivera APRN.CNP - 02/21/2022 11:17 AM EDT is a 51 year old who presents today for an endometrial biopsy for endometrial cells on pat. test: n/a UNIVERSAL PROTOCOL / SAFETY CHECKLIST Procedure to be Performed: EMB Sign In: A Moment of CARE was completed. Personnel directly involved with the procedure wore the appropriate PPE (Personal Protective Equipment). Patient/Surrogate Stated/Verified: PATIENT VERIFIED(optional for EMERGENT procedures): Patient name, Date of , Relevant allergies, and The intended procedure Time Out Communication: Intended patient and procedure match the source documents. Consent documented and matches the intended procedure. Sign Out: SIGN OUT (optional for EMERGENT procedures): All specimen containers correctly labeled. All instruments, equipment, possible retained foreign bodies accounted for. Post-procedure follow-up management communicated and Plan of Care Visit completed when applicable. PROCEDURE: EXTERNAL GENITALIA: Normal in appearance without lesions VAGINA: Normal in appearance without lesions BIOPSY: Speculum placed into the vagina with excellent visualization of the cervix. Cervix cleaned with betadine. Anterior lip of cervix grasped with single toothed tenaculum. Uterus sounded to 8 cm.Pipelle inserted into the uterus without difficulty and endometrial biopsy obtained. Specimen labeled and sent to pathology. Procedure Summary: Patient tolerated procedure well. ASSESSMENT: endometrial cells on pap PLAN: Specimens labeled and sent to Pathology. Will notify patient of results in 1-2 weeks. Post-procedure instructions reviewed and written material given to the patient. Ann Rivera APRN.CNP documented in this encounterSamaritan Hospital10-14-2022 Miscellaneous Notes* Telephone Encounter - Lyn Martinez RN - 02/17/2022 4:30 PM EDT Patient notified and EMB scheduled. Lyn Martinez RN * Telephone Encounter - Anna Boyer RN - 02/17/2022 4:24 PM EDT Left message for patient to call office. Anna Boyer RN * Telephone Encounter - Ann Rivera APRN.CNP - 02/17/2022 3:53 PM EDT Pap ASCUS will need to repeat in 1 yr. Endometrial cell present on pap will need to do a EMB. Order filed. Ann Rivera APRN.CNP documented in this encounterSam[facility]itan Hospital10-03-2022 History of Present illness Narrative* Ann Rivera APRN.CNP - 02/06/2022 3:52 PM EDT Photographic Platemaker offered: Patient declines. is a 51 year old who presents for an annual gynecologic exam without complaints. Postmenopausal: No. Menstrual cycle irregular, LMP 01/30/22 Flow 5-7 days HRT use: No. Last Pap: 01/25/2021 normal HPV: 01/19/2021 negative History of abnormal pap: Yes- Atypical grandular cells in 2019 Last mammogram: 2021 normal @[facility] History of abnormal mammogram: No Sexually active: No OB History T0 L0 SAB0 IAB0 Ectopic0 Multiple0 Live Births0 Police Dispatcher History LMP: 05/18/2021 (Within Weeks), Having periods Age at Menarche: Age at First : Age at Menopause: Police Dispatcher History Comments: Sexual Activity: Not Currently; No partner data on record Contraception: No contraception data on record PAST MEDICAL HISTORY Diagnosis Date Allergic rhinitis Arthritis Asthma GERD (gastroesophageal reflux disease) OA (osteoarthritis) of knee Dr. [facility] Vitamin D deficiency PAST SURGICAL HISTORY Procedure Laterality Date APPENDECTOMY 05/07/1979 APPENDECTOMY HX BACK SURGERY HX CARPAL TUNNEL 05/07/2010 bilateral wrist COLONOSCOPY FLX DX W/COLLJ SPEC WHEN PFRMD 12/27/2020 EXCIS LESION, MENISCUS OR CAPSULE, KNEE 05/28/13,08/2014 Dr. [facility], right knee medial meniscus repair JOINT REPLACEMENT HX Right 08/09/2020 LOW BACK DISK SURGERY 05/07/2001 L4-herniated disc OSTECTOMY CALCANEUS SPUR W/WO PLNTAR FASCIAL RLS left foot TOTAL KNEE REPLACEMENT Right 08/09/2020 Dr. Willis FAMILY HISTORY Problem Relation Age of Onset Asthma Mother Asthma Father Dementia Father other (heart disease) Father 64 Diabetes Paternal Grandmother Breast Cancer Maternal Grandmother SOCIAL HISTORY Social History Tobacco Use Smoking status: Never Smokeless tobacco: Former Types: Snuff Tobacco comments: chew tobacco Vaping Use Vaping Use: Never used Substance Use Topics Alcohol use: No Drug use: No REVIEW OF SYSTEMS Abdomen: No abdominal pain, nausea, vomiting, diarrhea, or constipation. No bloating, early satiety, indigestion, or increased flatulence. Bladder: No dysuria, gross hematuria, urinary frequency, urinary urgency, or incontinence Breast: No breast lumps, nipple d/c, overlying skin changes, redness or skin retraction Allergies and current medication updated:Yes EXAM: LMP 05/18/2021 GENERAL: pleasant, female in no apparent distress HEENT: Normocephalic, atraumatic, mucus membranes moist, and no lesions NECK: Supple, full range of motion, no adenopathy, and thyroid normal DERMATOLOGY: Normal, without lesions, non-icteric, and non-hirsute BREAST: soft, non-tender, symmetric, no dominant mass, normal nipple-areolar complex, no lymphadenopathy, and no nipple discharge CHEST: Normal inspiratory effort ABDOMEN: soft, non-tender, and no masses PELVIC: external genitalia normal, normal Bartholin's glands, urethra, Sh[place]hinny's glands, no vulvar lesions, no cervical lesions, physiologic discharge present, normal appearing perineal body and perianal region BIMANUAL: uterus normal size, shape and consistency, no adnexal masses, and non-tender RECTOVAGINAL: deferred. NEURO: alert and oriented x3,exam grossly non-focal EXTREMITIES: normal ASSESSMENT/PLAN: 1) Health maintenance: Pap done with HPV. Mammogram up to date Nutrition, exercise and routine health maintenance exams reviewed. Colon cancer screening: up to date with screening 2) Follow up one year or sooner as needed Ann Rivera APRN.GARRETT documented in this encounterSamaritan Hospital09-29-2022 History of Present illness Narrative* Arleen Sotomayor LPN - 02/02/2022 10:48 AM EDT Patient presents for COVID booster. Denies any problems at this time. Tolerated injection well. Arleen Sotomayor LPN documented in this encounterSamaritan Hospital07-13-2022 Miscellaneous Notes* Telephone Encounter - Brunilda Granger LPN - 11/16/2021 8:50 AM EDT Faxed order over to [facility]. * Telephone Encounter - Cam Tripp DO - 11/15/2021 5:36 PM EDT Please fax order and notify patient Cam Tripp DO * Telephone Encounter - VIV Bravo - 11/14/2021 6:47 PM EDT Pt is wondering if she could get her mammogram order faxed over to [facility], Her order expires soon and she may need a new one Please review and advise. Elisabeth Pantoja PSS November 14, 2021 6:48 PM documented in this encounterSamaritan Hospital06-30-2022 Miscellaneous Notes* Telephone Encounter - Brunilda Granger LPN - 11/03/2021 1:39 PM EDT Faxed to [facility] at [phone] at pts request. * Telephone Encounter - Yakelin Taylor APRN.CNP - 11/03/2021 12:03 PM EDT Printed and signed. In my outbox. Please fax to number provided. Thank you, Yakelin Taylor APRN.RN NEUROSURGICAL The following approved medication requests have been transmitted electronically. Signed Prescriptions Disp Refills fluticasone (FLOVENT) 110 mcg/actuation inhaler 1 Inhaler 11 Sig: Inhale 1 Puff as instructed twice daily. MARY LOU: No Authorizing Provider: YAKELIN TAYLOR APRN.RN NEUROSURGICAL * Telephone Encounter - Tatyana Ogden RN - 11/03/2021 11:51 AM EDT Patient asking pcp to print Rx for flovent, and [facility]- fax # [phone]. Reports she gets this rx through her employer, from [email or web address], and get's it free. Pended for print. Last ov with pcp: 08-09-21 documented in this encounterSamaritan Hospital04-05-2022 History of Present illness Narrative* Cam Tripp, - 08/09/2021 11:59 AM EDT CC: Nancy Weldon is a 51 year old female who presents to the office for 6 months follow up HPI: Breast abscess on right side, treated with doxycycline and bactrim, 2 separate course of antibiotics, no fevers or chills. Symptoms have resolved. Did have a diagnostic mammogram due to these concerns, which was normal. Asthma, stable, taking flovent, symptoms have been controlled. No wheezing or respiratory symptoms changed. Arthritis, hx of right total knee replacement surgery [address] Levine at [facility], has her 1 year follow up appt with his office today Hand aching and discomfort, arthritis, use of meloxicam as needed. Does help symptoms. PAST MEDICAL HISTORY Diagnosis Date Allergic rhinitis Arthritis Asthma GERD (gastroesophageal reflux disease) OA (osteoarthritis) of knee Dr. [facility] Vitamin D deficiency PAST SURGICAL HISTORY Procedure Laterality Date APPENDECTOMY 05/07/1979 APPENDECTOMY HX BACK SURGERY HX CARPAL TUNNEL 05/07/2010 bilateral wrist COLONOSCOPY FLX DX W/COLLJ SPEC WHEN PFRMD 12/27/2020 EXCIS LESION, MENISCUS OR CAPSULE, KNEE 05/28/13,08/2014 Dr. [facility], right knee medial meniscus repair JOINT REPLACEMENT HX Right 08/09/2020 LOW BACK DISK SURGERY 05/07/2001 L4-herniated disc OSTECTOMY CALCANEUS SPUR W/WO PLNTAR FASCIAL RLS left foot TOTAL KNEE REPLACEMENT Right 08/09/2020 Dr. Willis Current Outpatient Medications Medication Sig meloxicam (MOBIC) 15 mg tablet Take 1 tablet by mouth once daily. For arthritis, Take with food. gluc garcia/chondro garcia A/vit C/Mn (GLUCOSAMINE 1500 COMPLEX ORAL) Take by mouth. EKJXZET-BIQM-VEYSQ-OREG-CAPRYL ORAL Take by mouth. Tumeric only fioxkoa-xbqpxedme-yobsxz 180 167-65-200 mg tab Take by mouth. omeprazole (PRILOSEC) 20 mg capsule Take 1 capsule by mouth once daily. fluticasone (FLOVENT) 110 mcg/actuation inhaler Inhale 1 Puff as instructed twice daily. Ascorbic Acid (VITAMIN C) 1,000 mg tablet Take 1,000 mg by mouth once daily. cyanocobalamin, vitamin B-12, (VITAMIN B-12 ORAL) Take by mouth. FLUTICASONE PROPIONATE (FLONASE NASAL) Use in the nose. Cholecalciferol, Vitamin D3, (VITAMIN D) 1,000 unit cap Take 1,000 Units by mouth twice daily. multivitamins(DAILY MULTIPLE TAB) Take one(1) tablet daily. No current facility-administered medications for this visit. ALLERGIES Allergen Reactions Bandaids [Other] Rash Voltaren [Diclofena* Rash gel Social History Tobacco Use Smoking status: Never Smoker Smokeless tobacco: Former User Types: Snuff Tobacco comment: chew tobacco Vaping Use Vaping Use: Never used Substance Use Topics Alcohol use: No Drug use: No ROS: See HPI PE: BP 100/60 Pulse 64 Temp (Src) 97 (Right Tympanic) Resp 16 Wt 277 lb (125.6kg) LMP 05/18/2021 Gen: A&OX3, NAD, non-toxic appearing HEENT: PERRLA, EOMs intact b/l, nares without drainage, pharynx without erythema, exudate, lesions,or drainage. Uvula midline. Neck: No LAD, no thyromegaly, no meningismus. CV: RRR, no murmur Lungs: CTA b/l, no wheezing Skin: No rashes, lesions, or wounds on exposed skin. ASSESSMENT/PLAN: 1. IFG (impaired fasting glucose) - ICD9: 790.21, ICD10: R73.01 (primary diagnosis) - worsening, need for continued efforts of weight loss and diet changes, f/u in 6 Months, follow low glycemic index foods diet. - HGB A1C 2. Dyslipidemia - ICD9: 272.4, ICD10: E78.5 - good control - Encouraged following a low fat, low cholesterol diet. - Discussed the benefits of regular aerobic exercise and weight loss. - LIPID PANEL BASIC - COMP METABOLIC PANEL - CBC 3. Asthma, moderate persistent, well-controlled - ICD9: 493.90, ICD10: J45.40 Moderate persistent Asthma stable - Continue current meds - Avoidance of triggers recommended 4. Arthritis, multiple joint involvement - ICD9: 716.99, ICD10: M12.9 - stable, continue prn Meloxicam 5. Encounter for hepatitis C screening test for low risk patient - ICD9: V73.89, ICD10: Z11.59 - HEP C AB IA W/CONF SCRN 6. History of total knee arthroplasty, right - ICD9: V43.65, ICD10: Z96.651 See above 7. Obesity, Class III, BMI 40-49.9 (morbid obesity) (HCC) - ICD9: 278.01, ICD10: E66.01 Weight decreasing - Behavioral intervention and - Eat well program Cam Tripp DO Return if no improvement. Follow up with Cam Tripp DO. To ER if develops chest pain, shortness of breath. Discussed risks, benefits, alternatives, and potential side effects of medications. Patient/Guardian expressed understanding and agreed with the plan. See patient instructions. Cam Tripp DO [address] [place] [address] documented in this encounterSamaritan HospitalDischarge summary Author Magui Scott [facility] August 16, 2023 3:34pm Note Date/Time August 16, 2023 3:0 4pm [facility] Medical Records Department [address] [place] [address] Instructions for Home/Discharge Instructions 08/16/23 1503 MR#: [id number] Acct: [id number] Name: NANCY WELDON Rep #:[id number] : 1970 53 From: Magui Scott MD PCP: Dr. Cam Tripp DO Status:[facility] Discharge Instructions Diet Discharge Diet: No restrictions Activity May resume sexual activity in: 2 weeks Lifting Restrictions: none Dressing / Incision Call your doctor if your incision/area has: Sudden Increased Bleeding and Foul Smelling Discharge Call your doctor if you observe: Fever of 101 or Higher and Using more than 1 pad per hour (for 2 hrs in a row) Follow Up Care Please Follow Up With: Magui Scott MD When: We will contact you next week with your pathology. Schedule a follow up in 3 months. Call [phone] or send a [employer] message to make an appointmentor with any concerns. Test Results: Test results from this visit will be discussed in further detail at your follow- up appointment, if applicable. Discharge Plan Admission Primary Reason for Your Visit: Hysteroscopy dilation and curettage and Liletta IUD insertion Attending Provider: Magui Scott Primary Care Provider: Cam Tripp Discharge Orders/Prescriptions Prescriptions: No Action calcium carbonate 600 MG tablet 600 mg PO DAILY cyanocobalamin (vitamin B-12) 500 MCG tablet 1,000 mcg PO DAILY@0800 fluticasone propionate 1 SPRAY spray,suspension 2 spray NASAL DAILY fluticasone propionate 1 INHALER inhaler 1 puff INHALATION BID omeprazole 20 MG tablet,delayed release (DR/EC) 20 mg PO DAILY cholecalciferol (vitamin D3) 2,000 UNIT capsule 2,000 unit PO DAILY loratadine 10 MG capsule 10 mg PO DAILY zhieievx-ufl-bgar-FA-vit K-lut 1 EACH tablet 1 each PO DAILY meloxicam 15 mg tablet 15 mg PO DAILY Referrals / Follow Up: Cam Tripp DO [Primary Care Provider] - Disposition Disposition (needs filled in before D/C Order can be placed): Home, Self Care 08/16/23 7602<Electronically signed by Magui Scott MD>Magui Scott MD CC: Dr. Cam Tripp DO ~ Signed [facility] Work Phone: Evaluation noteNo assessment information available [facility]* Diagnosis IFG (impaired fasting glucose)- Primary Impaired fasting glucose Dyslipidemia Other and unspecified hyperlipidemia Asthma, moderate persistent, well-controlled Unspecified asthma Arthritis, multiple joint involvement Unspecified arthropathy, multiple sites Encounter for hepatitis C screening test for low risk patient History of total knee arthroplasty, right Obesity, Class III, BMI 40-49.9 (morbid obesity) (HCC) Morbid obesity [facility]* Diagnosis Asthma, moderate persistent, well-controlled Unspecified asthma documented [facility] this [facility]* Diagnosis Encounter for screening mammogram for malignant neoplasm of breast- Primary Other screening mammogram [facility]* Diagnosis Need for vaccination- Primary Need for prophylactic vaccination and inoculation against unspecified single disease [facility] Diagnosis Encounter for gynecological examination (general) (routine) without abnormal findings- Primary Screening for malignant neoplasm of cervix Screening for malignant neoplasm of the cervix Encounter for screening for human papillomavirus (HPV) Special screening examination for human papillomavirus (HPV) [facility] Diagnosis Unexplained endometrial cells on cervical Pap smear- Primary Other abnormal Papanicolaou smear of cervix and cervical HPV [facility] Diagnosis Non-atypical endometrial cells of cervix on Pap smear- Primary Other abnormal Papanicolaou smear of cervix and cervical HPV [facility] Diagnosis Pain- Primary Generalized pain [facility]* Diagnosis IFG (impaired fasting glucose)- Primary Impaired fasting glucose Screening for osteoporosis Special screening for osteoporosis Encounter for screening mammogram for malignant neoplasm of breast Other screening mammogram Asthma, moderate persistent, well-controlled Unspecified asthma Dyslipidemia Other and unspecified hyperlipidemia Arthritis, multiple joint involvement Unspecified arthropathy, multiple sites Obesity, Class III, BMI 40-49.9 (morbid obesity) (HCC) Morbid obesity Well adult exam Routine general medical examination at a health care facility Vitamin D deficiency Unspecified vitamin D deficiency Fatigue, unspecified type Actinic keratosis [facility] Diagnosis Arthritis, multiple joint involvement- Primary Unspecified arthropathy, multiple sites [facility]* Diagnosis Encounter for gynecological examination (general) (routine) without abnormal findings- Primary Pap smear for cervical cancer screening Screening for malignant neoplasm of the cervix [facility] Diagnosis Well adult exam- Primary Routine general medical examination at a health care facility Asthma, moderate persistent, well-controlled Unspecified asthma Need for influenza vaccination Need for prophylactic vaccination and inoculation against influenza Need for pneumococcal 20-valent conjugate vaccination Arthritis, multiple joint involvement Unspecified arthropathy, multiple sites IFG (impaired fasting glucose) Impaired fasting glucose Dyslipidemia Other and unspecified hyperlipidemia Obesity, Class III, BMI 40-49.9 (morbid obesity) (HCC) Morbid obesity [facility]* Diagnosis Rhinosinusitis- Primary Unspecified sinusitis (chronic) [facility]* Diagnosis Postmenopausal bleeding- Primary [facility]* Diagnosis Postmenopausal bleeding [facility]* Diagnosis Onset Date Resolution Status Endometrial polyp acute PMB (postmenopausal bleeding) acute [facility] Work Phone: Evaluation note* Diagnosis PMB (postmenopausal bleeding)- Primary Postmenopausal bleeding Endometrium, polyp Polyp of corpus uteri [facility]* Diagnosis Encounter for screening mammogram for malignant neoplasm of breast- Primary Other screening mammogram [facility]* Diagnosis Wound of left lower extremity, initial encounter- Primary [facility]* Diagnosis Lumbar pain- Primary Lumbago Lumbar pain Lumbago [facility]* Diagnosis Lumbar pain Lumbago [facility]* Diagnosis Pain Generalized pain [facility]* Diagnosis Dyslipidemia- Primary Other and unspecified hyperlipidemia Vitamin D deficiency Unspecified vitamin D deficiency IFG (impaired fasting glucose) Impaired fasting glucose [facility]* Diagnosis Well adult exam- Primary Routine general medical examination at a health care facility Dyslipidemia Other and unspecified hyperlipidemia Vitamin D deficiency Unspecified vitamin D deficiency IFG (impaired fasting glucose) Impaired fasting glucose Arthritis, multiple joint involvement Unspecified arthropathy, multiple sites Asthma, moderate persistent, well-controlled Unspecified asthma Obesity, Class III, BMI 40-49.9 (morbid obesity) (HCC) Morbid obesity Gastroesophageal reflux disease without esophagitis Esophageal reflux Fatigue, unspecified type [facility]* Diagnosis Sinobronchitis- Primary Unspecified sinusitis (chronic) Abnormal x-ray Other nonspecific (abnormal) findings on radiological and other examinations of body structure Acute cough [facility] Diagnosis Encounter for screening mammogram for malignant neoplasm of breast- Primary Other screening [facility] Additional Inst[facility] Im[facility] Used?: Yes IUD-DOCUMENTED IN [facility] Work Phone: Reason for referral (narrative)* Diagnostic Procedure Only (Routine) - Pending Review Specialty Diagnoses / Procedures Referred By Paul t Referred To Contact [facility] Diagnoses Encounter for screening mammogram for malignant neoplasm of breast Procedures ANTONIA SCREENING W BRIAN SCREENING DIGITAL BREAST TOMOSYNTHESIS BI SCREENING MAMMOGRAPHY BI 2-VIEW BREAST INC Cam Mata DO [address] [place] [address] [facility] [address] [place] [id number] Referral ID Status Reason Start Date Expiration Date Visits Requested Visits Authorized [id number] Pending Review Auto-Generat ed Referral 11/15/2021 12/15/2022 1 1 [facility] for referral (narrative)* Outpatient Procedure (Routine) - Authorized Specialty Diagnoses / Procedures Referred By Paul valadez Referred To Contact [facility] Diagnoses Unexplained endometrial cells on cervical Pap smear Procedures ENDOMETRIAL BIOPSY ENDOMETRIAL BX W/WO ENDOCERVIX BX W/O DILAT SPX Ann Rivera APRN.CNP [address] [place] [address] [facility] [address] [place] [id number] Referral ID Status Reason Start Date Expiration Date Visits Requested Visits Authorized [id number] Authorized Auto-Generat ed Referral 2 02/17/2023 1 1 [facility] for referral (narrative)* Diagnostic Procedure Only (Urgent) - Closed Specialty Diagnoses / Procedures Referred By Paul t Referred To Contact [facility] Diagnoses Pain Procedures XR CLAVICLE 2V LEFT RADEX CLAVICLE COMPLETE Spring Melo APRN.CNP [address] [place] [address] [facility] Referral ID Status Reason Start Date Expiration Date V isits Requested Visits Authorized [id number] Closed Auto-Generate d Referral 02/22/2022 03/24/2023 1 1 [facility] for referral (narrative)* Diagnostic Procedure Only (Routine) - Pending Review Specialty Diagnoses / Procedures Referred By Paul t Referred To Contact [facility] Diagnoses Encounter for screening mammogram for malignant neoplasm of breast Procedures ANTONIA SCREENING W BRIAN SCREENING DIGITAL BREAST TOMOSYNTHESIS BI SCREENING MAMMOGRAPHY BI 2-VIEW BREAST INC Cam Mata DO [address] [place] [address] [facility] [address] [place] [address] Referral ID Status Reason Start Date Expiration Date Visits Requested Visits Authorized [id number] Pending Review Auto-Generat ed Referral 10/06/2022 11/05/2023 1 1 [facility] for referral (narrative)* Diagnostic Procedure Only (Routine) - Authorized Specialty Diagnoses / Procedures Referred By Contac t Referred To Contact [facility] Diagnoses Postmenopausal bleeding Procedures US FEMALE PELVIS TRANSVAG US TRANSVAGINAL Dylan Thomas MD [address] [facility] [address] [place] [address] Referral ID Status Reason Start Date Expiration Date Visits Requested Visits Authorized [id number] Authorized Auto-Generat ed Referral 06/26/2023 07/25/2024 1 1 * Outpatient Procedure (Routine) - Closed Specialty Diagnoses / Procedures Referred By Paul t Referred To Contact [facility] Diagnoses Postmenopausal bleeding Procedures ENDOMETRIAL BIOPSY ENDOMETRIAL BX W/WO ENDOCERVIX BX W/O DILAT SPX Dylan Thomas MD [address] [place] [address] [facility] [address] [place] [address] Referral ID Status Reason Start Date Expiration Date V isits Requested Visits Authorized [id number] Closed Auto-Generate d Referral 06/26/2023 05/06/2024 1 1 [facility] for referral (narrative)* Diagnostic Procedure Only (Routine) - Closed Specialty Diagnoses / Procedures Referred By Paul valadez Referred To Contact [facility] Diagnoses Postmenopausal bleeding Procedures US FEMALE PELVIS TRANSVAG US TRANSVAGINAL Dylan Thomas MD [address] [place] [address] [facility] Referral ID Status Reason Start Date Expiration Date V isits Requested Visits Authorized [id number] Closed Auto-Generate d Referral 06/26/2023 07/25/2024 1 1 [facility] for referral (narrative)* Diagnostic Procedure Only (Routine) - Pending Review Specialty Diagnoses / Procedures Referred By Paul valadez Referred To Contact [facility] Diagnoses Encounter for screening mammogram for malignant neoplasm of breast Procedures ANTONIA SCREENING W BRIAN SCREENING DIGITAL BREAST TOMOSYNTHESIS BI SCREENING MAMMOGRAPHY BI 2-VIEW BREAST INC Yakelin Thurston APRN.RN NEUROSURGICAL [address] [place] [address] [facility] [address] [place] [address] Referral ID Status Reason Start Date Expiration Date Visits Requested Visits Authorized [id number] Pending Review Auto-Generat ed Referral 11/14/2023 12/13/2024 1 1 [facility] for referral (narrative)* Diagnostic Procedure Only (Urgent) - Closed Specialty Diagnoses / Procedures Referred By Contac t Referred To Contact XR IMAGING Diagnoses Lumbar pain Procedures XR LUMBAR GENERAL 3V AP/LAT/L5-S1 RADEX SPINE LUMBOSACRAL 2/3 VIEWS Anahy Alfred PA [address] [place] [address] [place] [address] Referral ID Status Reason Start Date Expiration Date V isits Requested Visits Authorized [id number] Closed Auto-Generate d Referral 01/29/2024 02/27/2025 1 1 [facility] for referral (narrative)* Diagnostic Procedure Only (Urgent) - Closed Specialty Diagnoses / Procedures Referred By Contac t Referred To Contact [facility] Diagnoses Lumbar pain Procedures XR LUMBAR GENERAL 3V AP/LAT/L5-S1 RADEX SPINE LUMBOSACRAL 2/3 VIEWS Anahy Alfred PA [address] [place] [address] [place] [address] Referral ID Status Reason Start Date Expiration Date V isits Requested Visits Authorized [id number] Closed Auto-Generate d Referral 01/29/2024 02/27/2025 1 1 [facility] for referral (narrative)* Diagnostic Procedure Only (Urgent) - Closed Specialty Diagnoses / Procedures Referred By Contac t Referred To Contact [facility] IMAGING Diagnoses Pain Procedures XR CLAVICLE 2V LEFT RADEX CLAVICLE COMPLETE Spring Melo APRN.RN NEUROSURGICAL [address] [place] [address] [place] [address] Referral ID Status Reason Start Date Expiration Date V isits Requested Visits Authorized [id number] Closed Auto-Generate d Referral 02/22/2022 03/24/2023 1 1 [facility] for visit Narrative* Diagnostic Procedure Only (Urgent) - Closed Specialty Diagnoses / Procedures Referred By Contac t Referred To Contact XR IMAGING Diagnoses Lumbar pain Procedures XR LUMBAR GENERAL 3V AP/LAT/L5-S1 RADEX SPINE LUMBOSACRAL 2/3 VIEWS Anahy Alfred, PA [address] [place] [address] [place] [address] Referral ID Status Reason Start Date Expiration Date V isits Requested Visits Authorized [id number] Closed Auto-Generate d Referral 01/29/2024 02/27/2025 1 1 [facility] for visit Narrative* Diagnostic Procedure Only (Urgent) - Closed Specialty Diagnoses / Procedures Referred By Contac t Referred To Contact [facility] IMAGING Diagnoses Pain Procedures XR CLAVICLE 2V LEFT RADEX CLAVICLE COMPLETE Spring Melo APRN.RN NEUROSURGICAL [address] [place] [address] [place] [address] Referral ID Status Reason Start Date Expiration Date V isits Requested Visits Authorized [id number] Closed Auto-Generate d Referral 02/22/2022 03/24/2023 1 1 [facility] Chief Complaint and Reason for Visit Chief Complaint SKIN DISORDERS Chief Complaint SCREENING Chief Complaint Hysteroscopy,D&C, po lypectomy, Sym Reason for Visit Endometrial polyp PMB (postmenopausal bleeding) Advance Directives No Advanced Directives Records Found Advance Directive Response Recorded Date/ Time Living Will Yes July 26, 2020 11:27am Power of Cloth Stretcher Yes July 26 11:27am Documents on File Type Date Recorded Patient Special Procedures Tech Expl anation Advance Directive(s) 12/27/2020 8:10 AM Advance Directive(s) 12/14/2020 11:44 AM Documents on File Type Date Recorded Patient Special Procedures Tech Expl anation Advance Directive(s) 12/27/2020 8:10 AM Advance Directive(s) 12/14/2020 11:44 AM Advance Directive Response Recorded Date/ Time Living Will No August 08, 2023 2:15pm Power of Cloth Stretcher No August 07 2:15pm Summary Purpose Family History No Family History Records FoundNo Family History Records Found Additional Source Comments Goals (unrecognized section and content) Goals may be documented in a n alternate sectionGoals may be documented in an alternate sectionGoals may be documented in an alternate section Source Comments (unrecognize d section and content) In the event this informatio n is protected by the Federal Confidentiality of Alcohol and Drug Abuse Patient Records regulations: The Federal rules restrict any use of the information to criminally investigate or prosecute any alcohol or drug abuse patient.[facility] the event this information is protected by the Federal Confidentiality of Alcohol and Drug Abuse Patient Records regulations: The Federal rules restrict any use of the information to criminally investigate or prosecute any alcohol or drug abuse patient.[facility] the event this information is protected by the Federal Confidentiality of Alcohol and Drug Abuse Patient Records regulations: The Federal rules restrict any use of the information to criminally investigate or prosecute any alcohol or drug abuse patient.[facility] the event this information is protected by the Federal Confidentiality of Alcohol and Drug Abuse Patient Records regulations: The Federal rules restrict any use of the information to criminally investigate or prosecute any alcohol or drug abuse patient.[facility] the event this information is protected by the Federal Confidentiality of Alcohol and Drug Abuse Patient Records regulations: The Federal rules restrict any use of the information to criminally investigate or prosecute any alcohol or drug abuse patient.[facility] the event this information is protected by the Federal Confidentiality of Alcohol and Drug Abuse Patient Records regulations: The Federal rules restrict any use of the information to criminally investigate or prosecute any alcohol or drug abuse patient.[facility] the event this information is protected by the Federal Confidentiality of Alcohol and Drug Abuse Patient Records regulations: The Federal rules restrict any use of the information to criminally investigate or prosecute any alcohol or drug abuse patient.[facility] the event this information is protected by the Federal Confidentiality of Alcohol and Drug Abuse Patient Records regulations: The Federal rules restrict any use of the information to criminally investigate or prosecute any alcohol or drug abuse patient.[facility] the event this information is protected by the Federal Confidentiality of Alcohol and Drug Abuse Patient Records regulations: The Federal rules restrict any use of the information to criminally investigate or prosecute any alcohol or drug abuse patient.[facility] the event this information is protected by the Federal Confidentiality of Alcohol and Drug Abuse Patient Records regulations: The Federal rules restrict any use of the information to criminally investigate or prosecute any alcohol or drug abuse patient.[facility] Hospital[facility] the event this information is protected by the Federal Confidentiality of Alcohol and Drug Abuse Patient Records regulations: The Federal rules restrict any use of the information to criminally investigate or prosecute any alcohol or drug abuse patient.[facility] Hospital[facility] the event this information is protected by the Federal Confidentiality of Alcohol and Drug Abuse Patient Records regulations: The Federal rules restrict any use of the information to criminally investigate or prosecute any alcohol or drug abuse patient.[facility] the event this information is protected by the Federal Confidentiality of Alcohol and Drug Abuse Patient Records regulations: The Federal rules restrict any use of the information to criminally investigate or prosecute any alcohol or drug abuse patient.[facility] Hospital[facility] the event this information is protected by the Federal Confidentiality of Alcohol and Drug Abuse Patient Records regulations: The Federal rules restrict any use of the information to criminally investigate or prosecute any alcohol or drug abuse patient.[facility] HospitalIn the event this information is protected by the Federal Confidentiality of Alcohol and Drug Abuse Patient Records regulations: The Federal rules restrict any use of the information to criminally investigate or prosecute any alcohol or drug abuse patient.[facility] HospitalIn the event this information is protected by the Federal Confidentiality of Alcohol and Drug Abuse Patient Records regulations: The Federal rules restrict any use of the information to criminally investigate or prosecute any alcohol or drug abuse patient.[facility] HospitalIn the event this information is protected by the Federal Confidentiality of Alcohol and Drug Abuse Patient Records regulations: The Federal rules restrict any use of the information to criminally investigate or prosecute any alcohol or drug abuse patient.[facility] HospitalIn the event this information is protected by the Federal Confidentiality of Alcohol and Drug Abuse Patient Records regulations: The Federal rules restrict any use of the information to criminally investigate or prosecute any alcohol or drug abuse patient.[facility] HospitalIn the event this information is protected by the Federal Confidentiality of Alcohol and Drug Abuse Patient Records regulations: The Federal rules restrict any use of the information to criminally investigate or prosecute any alcohol or drug abuse patient.[facility] HospitalIn the event this information is protected by the Federal Confidentiality of Alcohol and Drug Abuse Patient Records regulations: The Federal rules restrict any use of the information to criminally investigate or prosecute any alcohol or drug abuse patient.[facility] HospitalIn the event this information is protected by the Federal Confidentiality of Alcohol and Drug Abuse Patient Records regulations: The Federal rules restrict any use of the information to criminally investigate or prosecute any alcohol or drug abuse patient.[facility] HospitalIn the event this information is protected by the Federal Confidentiality of Alcohol and Drug Abuse Patient Records regulations: The Federal rules restrict any use of the information to criminally investigate or prosecute any alcohol or drug abuse patient.[facility] HospitalIn the event this information is protected by the Federal Confidentiality of Alcohol and Drug Abuse Patient Records regulations: The Federal rules restrict any use of the information to criminally investigate or prosecute any alcohol or drug abuse patient.[facility] HospitalIn the event this information is protected by the Federal Confidentiality of Alcohol and Drug Abuse Patient Records regulations: The Federal rules restrict any use of the information to criminally investigate or prosecute any alcohol or drug abuse patient.[facility] HospitalIn the event this information is protected by the Federal Confidentiality of Alcohol and Drug Abuse Patient Records regulations: The Federal rules restrict any use of the information to criminally investigate or prosecute any alcohol or drug abuse patient.[facility] HospitalIn the event this information is protected by the Federal Confidentiality of Alcohol and Drug Abuse Patient Records regulations: The Federal rules restrict any use of the information to criminally investigate or prosecute any alcohol or drug abuse patient.[facility] HospitalIn the event this information is protected by the Federal Confidentiality of Alcohol and Drug Abuse Patient Records regulations: The Federal rules restrict any use of the information to criminally investigate or prosecute any alcohol or drug abuse patient.[facility] HospitalIn the event this information is protected by the Federal Confidentiality of Alcohol and Drug Abuse Patient Records regulations: The Federal rules restrict any use of the information to criminally investigate or prosecute any alcohol or drug abuse patient.[facility] HospitalIn the event this information is protected by the Federal Confidentiality of Alcohol and Drug Abuse Patient Records regulations: The Federal rules restrict any use of the information to criminally investigate or prosecute any alcohol or drug abuse patient.[facility] HospitalIn the event this information is protected by the Federal Confidentiality of Alcohol and Drug Abuse Patient Records regulations: The Federal rules restrict any use of the information to criminally investigate or prosecute any alcohol or drug abuse patient.[facility] HospitalIn the event this information is protected by the Federal Confidentiality of Alcohol and Drug Abuse Patient Records regulations: The Federal rules restrict any use of the information to criminally investigate or prosecute any alcohol or drug abuse patient.[facility] HospitalIn the event this information is protected by the Federal Confidentiality of Alcohol and Drug Abuse Patient Records regulations: The Federal rules restrict any use of the information to criminally investigate or prosecute any alcohol or drug abuse patient.[facility] HospitalIn the event this information is protected by the Federal Confidentiality of Alcohol and Drug Abuse Patient Records regulations: The Federal rules restrict any use of the information to criminally investigate or prosecute any alcohol or drug abuse patient.[facility] HospitalIn the event this information is protected by the Federal Confidentiality of Alcohol and Drug Abuse Patient Records regulations: The Federal rules restrict any use of the information to criminally investigate or prosecute any alcohol or drug abuse patient.[facility] HospitalIn the event this information is protected by the Federal Confidentiality of Alcohol and Drug Abuse Patient Records regulations: The Federal rules restrict any use of the information to criminally investigate or prosecute any alcohol or drug abuse patient.[facility] HospitalIn the event this information is protected by the Federal Confidentiality of Alcohol and Drug Abuse Patient Records regulations: The Federal rules restrict any use of the information to criminally investigate or prosecute any alcohol or drug abuse patient.[facility] Hospital[facility] the event this information is protected by the Federal Confidentiality of Alcohol and Drug Abuse Patient Records regulations: The Federal rules restrict any use of the information to criminally investigate or prosecute any alcohol or drug abuse patient.[facility] HospitalIn the event this information is protected by the Federal Confidentiality of Alcohol and Drug Abuse Patient Records regulations: The Federal rules restrict any use of the information to criminally investigate or prosecute any alcohol or drug abuse patient.[facility] HospitalIn the event this information is protected by the Federal Confidentiality of Alcohol and Drug Abuse Patient Records regulations: The Federal rules restrict any use of the information to criminally investigate or prosecute any alcohol or drug abuse patient.[facility] HospitalIn the event this information is protected by the Federal Confidentiality of Alcohol and Drug Abuse Patient Records regulations: The Federal rules restrict any use of the information to criminally investigate or prosecute any alcohol or drug abuse patient.[facility] Reason for Visit (unrecogniz ed section and content) Reason Comments 6 Month Exam Specialty Diagnoses / Procedures Referred By Contac t Referred To Contact Family Practice / FAMILY MEDICINE Diagnoses 6 month follow up Procedures EST PATIENT VISIT LEVEL 4 EST Cam Malcolm, DO [address] [place] [address] Referral ID Status Reason Start Date Expiration Date Visits Re quested Visits Authorized [id number] Closed 02/07/2021 05/06/2021 1 1 Reason Onset Date Comments Refill Request 11/03/2021 Reason Comments Orders Reason Comments Imm/Inj Reason Comments Police Dispatcher Exam Reason Comments Results Reason Comments Endometrial Biopsy Specialty Diagnoses / Procedures Referred By Contac t Referred To Contact [facility] Diagnoses Unexplained endometrial cells on cervical Pap smear Procedures ENDOMETRIAL BIOPSY ENDOMETRIAL BX W/WO ENDOCERVIX BX W/O DILAT SPX Ann Rivera APRN.RN NEUROSURGICAL [address] [place] [address] [facility] [address] [place] [address] Referral ID Status Reason Start Date Expiration Date V isits Requested Visits Authorized [id number] Closed Auto-Generate d Referral 02/17/2022 02/17/2023 1 1 Reason Comments Trauma Left clavicle pain Reason Comments 6 Month Exam Specialty Diagnoses / Procedures Referred By Paul t Referred To Contact FAMILY MEDICINE Diagnoses FOLLOW UP FOR ASTHMA Procedures 4C EST Cam Tripp, DO [address] [place] [address] Cam Tripp, DO [address] [place] [address] Referral ID Status Reason Start Date Expiration Date Visits Requested Visits Authorized [id number] Pending Review Patient Cleared - Qualified 100% FAS 09/20/2022 03/19/2023 1 1 Reason Comments fax orders to [facility] Reason Onset Date Comments Refill Request 01/02/2023 Reason Comments Annual AMMUNITION OFFICER exam Specialty Diagnoses / Procedures Referred By Paul t Referred To Contact ELECTRICAL INSTALLATION INSPECTOR Diagnoses Encounter for gynecological examination (general) (routine) without abnormal findings ANNUAL Procedures WELLNESS EXAMS EST 40-64 YRS ANNUAL [place], SILVER BUFFER.RN NEUROSURGICAL [address] [place] [address] Ann Rivera, SILVER BUFFER.RN NEUROSURGICAL [address] [place] [address] Referral ID Status Reason Start Date Expiration Date V isits Requested Visits Authorized [id number] Closed OON/Self Pay Override 01/25/2023 05/06/2023 1 1 Reason Onset Date Comments Follow Up needs flu vaccin e Immunizations 04/10/2023 Flu vaccination Reason Comments Sinus Problem sinus pressure, drai nage and eye drainage x couple weeks Reason Comments Post Menopausal Bleeding Specialty Diagnoses / Procedures Referred By Paul t Referred To Contact Diagnoses Postmenopausal bleeding bleeding x 2 weeks Procedures OFFICE/OUTPATIENT EST PT MAY NOT REQ PHYS/QHP bleeding x 2 weeks Self Back Filler Operator [facility] [address] [address] [place] [address] Referral ID Status Reason Start Date Expiration Date V isits Requested Visits Authorized [id number] Closed OON/Self Pay Override 06/26/2023 05/06/2024 1 1 Reason Comments Radiology US Specialty Diagnoses / Procedures Referred By Paul valadez Referred To Contact [facility] Diagnoses ULTRASOUND PELVIC Procedures PELVIC ULTRASOUND Dylan Thomas MD [address] [place] [address] Radio Ultra [facility] W[facility] Mob [address] [place] [address] Referral ID Status Reason Start Date Expiration Date V isits Requested Visits Authorized [id number] Closed OON/Self Pay Override 06/26/2023 05/06/2024 1 1 Reason Comments Medication Problem Reason Comments Insect Bite Lower left leg x3 we eks Reason Onset Date Comments Refill Request 01/14/2024 Reason Comments Back Pain lower back spasms x 3 days Reason Comments Orders Reason Onset Date Comments Refill Request 03/19/2024 Reason Comments Yearly Exam Reason Comments Patient Question Reason Comments Chest Congestion cough x 2 weeks Care Teams (unrecognized sec tion and content) Nursing Educator Relationship Specialty Start Date End Date Cam Tripp, DO [address] [facility] [place] [address] PCP - General Family Practice 05/13/13 Nursing Educator Relationship Specialty Start Date End Date Cam Tripp DO [address] [facility] [place] [address] PCP - General Family Practice 05/13/13 Nursing Educator Relationship Specialty Start Date End Date Cam Tripp, DO [address] [facility] [place] [address] PCP - General Family Practice 05/13/13 Nursing Educator Relationship Specialty Start Date End Date Cam Tripp, DO [address] [facility] [place] [address] PCP - General Family Medicine 05/13/13 Nursing Educator Relationship Specialty Start Date End Date Cam Tripp DO [address] [facility] [address] PCP - General Family Medicine 05/13/13 Nursing Educator Relationship Specialty Start Date End Date Cam Tripp DO [address] [facility] [address] PCP - General Family Medicine 05/13/13 Nursing Educator Relationship Specialty Start Date End Date Cam Tripp DO [address] [facility] [address] PCP - General Family Medicine 05/13/13 Nursing Educator Relationship Specialty Start Date End Date Cam Tripp DO [address] [facility] [address] PCP - General Family Medicine 05/13/13 Nursing Educator Relationship Specialty Start Date End Date Cam Tripp DO [address] [facility] [address] PCP - General Family Medicine 05/13/13 Nursing Educator Relationship Specialty Start Date End Date Cam Tripp DO [address] [facility] [place] [address] PCP - General Family Medicine 05/13/13 Nursing Educator Relationship Specialty Start Date End Date Cam Tripp DO [address] [facility] [place] [address] PCP - General Family Medicine 05/13/13 Team Status: Active Member Role Status Dates Dr. Cam Tripp DO Family Provider Active Dr. Cam Tripp DO Primary Care Provider Active Team Status: Inactive Member Role Status Dates Dr. Cam Tripp DO Primary Care Pr ovider, Attending Provider, Referring Provider Active Nursing Educator Relationship Specialty Start Date End Date Cam Tripp DO [address] [facility] [place] [address] PCP - General Family Medicine 05/13/13 Nursing Educator Relationship Specialty Start Date End Date Cam Tripp DO [address] [place] [address] PCP - General Family Medicine 05/13/13 Nursing Educator Relationship Specialty Start Date End Date Cam Tripp DO [address] [place] [address] PCP - General Family Medicine 05/13/13 Nursing Educator Relationship Specialty Start Date End Date Cam Tripp DO [address] [place] [address] PCP - General Family Medicine 05/13/13 Nursing Educator Relationship Specialty Start Date End Date Cam Tripp DO [address] [place] [address] PCP - General Family Medicine 05/13/13 Nursing Educator Relationship Specialty Start Date End Date Cam Tripp DO [address] [place] [address] PCP - General Family Medicine 05/13/13 Nursing Educator Relationship Specialty Start Date End Date Cam Tripp DO [address] [place] [address] PCP - General Family Medicine 05/13/13 Nursing Educator Relationship Specialty Start Date End Date Cam Tripp DO [address] [place] [address] PCP - General Family Medicine 05/13/13 Team Status: Inactive Member Role Status Dates Dr. Cam Tripp DO Primary Care Provider Active Dr. Magui Tyler , MD Attending Provider, Referring Provider Active Nursing Educator Relationship Specialty Start Date End Date Cam Tripp DO [address] [place] [address] PCP - General Family Medicine 05/13/13 Nursing Educator Relationship Specialty Start Date End Date Cam Tripp DO [address] [place] [address] PCP - General Family Medicine 05/13/13 Nursing Educator Relationship Specialty Start Date End Date Cam Tripp DO [address] [place] [address] PCP - General Family Medicine 05/13/13 Nursing Educator Relationship Specialty Start Date End Date Cam Tripp DO [address] [place] [address] PCP - General Family Medicine 05/13/13 Nursing Educator Relationship Specialty Start Date End Date Cam Tripp DO [address] [place] [address] PCP - General Family Medicine 05/13/13 Nursing Educator Relationship Specialty Start Date End Date Cam Tripp DO [address] [place] [address] PCP - General Family Medicine 05/13/13 Nursing Educator Relationship Specialty Start Date End Date Cam Tripp DO [address] [place] [address] PCP - General Family Medicine 05/13/13 Yakelin Bailey APRN.RN NEUROSURGICAL [address] [place] [address] [facility] 04/13/24 [facility], SILVER BUFFER.RN NEUROSURGICAL [address] [facility] [place] [address] [facility] 04/13/24 Nursing Educator Relationship Specialty Start Date End Date Cam Tripp DO [address] [facility] [address] PCP - General Family Medicine 05/13/13 Yakelin Bailey, SILVER BUFFER.RN NEUROSURGICAL [address] [facility] [address] [facility] 04/13/24 [facility], SILVER BUFFER.RN NEUROSURGICAL [address] [place] [address] [facility] 04/13/24 Nursing Educator Relationship Specialty Start Date End Date Cam Tripp DO [address] [facility] [address] PCP - General Family Medicine 05/13/13 [facility], SILVER BUFFER.RN NEUROSURGICAL [address] [place] [address] [facility] 04/13/24 Nursing Educator Relationship Specialty Start Date End Date Cam Tripp DO [address] [place] [address] PCP - General Family Medicine 05/13/13 [facility], SILVER BUFFER.RN NEUROSURGICAL [address] [place] [address] [facility] 04/13/24 Nursing Educator Relationship Specialty Start Date End Date Cam Tripp DO [address] [place], [place] [address] PCP - General Family Medicine 05/13/13 Ariadne Calderon, SILVER BUFFER.RN NEUROSURGICAL [address] [place], [place] [address] [facility] 04/13/24 Nursing Educator Relationship Specialty Start Date End Date Cam Tripp DO [address] [place], [place] [address] PCP - General Family [facility] 05/13/13 Ariadne Calderon, SILVER BUFFER.RN NEUROSURGICAL [address] [place], [place] [address] [facility] 04/13/24 Marilia Gordon, SILVER BUFFER.RN NEUROSURGICAL [address] [place], [place] [id number] [facility] 10/20/24 INFORMATION SOURCE (unrecogn ized section and content) DATE CREATED AUTHOR 12/02/2024 [facility] DATE CREATED AUTHOR AUTHOR'S OG ATEMMANUEL 12/14/2024 [facility] FOR RECORDS PERTAINING TO PATIENTS WHO ARE OR HAVE BEEN ENROLLED IN A CHEMICAL DEPENDENCY/SUBSTANCEABUSE PROGRAM, SOME INFORMATION MAY BE OMITTED. This clinical summary was aggregated from multiple sources. Caution should be exercised in using it in the provision of clinical care. This summary normalizes information from multiple sources, and as a consequence, information in this document may materially change the coding, format and clinical context of patient data. In addition, data may be omitted in some cases. CLINICAL DECISIONS SHOULD BE BASED ON THE PRIMARY CLINICAL RECORDS. [employer] provides no warranty or guarantee of the accuracy or completeness of information in this document.
== END | disposition home or self-care (01) ==
LOC: OPBI 07:01
PROVIDERS: PCP Student in an Organized Health Care Education/Training Program; Referring Provider Student in an Organized Health Care Education/Training Program; Visit Provider Student in an Organized Health Care Education/Training Program
DX: Z12.31 Encounter for screening mammogram for malignant neoplasm of breast (principal)
CPT/HCPCS: 77063; 77067